=== PATIENT | male | born 1945 | race Caucasian/White ===

== ENCOUNTER → 2017-06-27 16:14 | Outpatient (CLI) | payer MEDICARE, SELFPAY ==
[2017-06-27 17:45] LABS: PSA,Total- Diagnostic 0.16 ng/mL (0.0-4.0)
== END ==
PROVIDERS: Family Provider Family Medicine; PCP Family Medicine; Visit Provider Urology
DX: Z12.5 Encounter for screening for malignant neoplasm of prostate (principal)
CPT/HCPCS: 36415; 84153

== ENCOUNTER → 2017-09-04 16:08 | Outpatient (CLI) | payer MEDICARE, SELFPAY ==
[2017-09-04 18:05] LABS: Absolute Lymphocyte Count 2.01 X10^3/ul (0.83-4.51); Absolute Neutrophil Count 2.7 X10^3/uL (2.0-7.7); Basophil# 0.03 X10^3/uL; Basophil% 0.6 % (0-1); Eosinophil# 0.18 X10^3/uL; Eosinophils% 3.4 % (0-5); Hematocrit 40.1 % (40-54); Hemoglobin 13.4 g/dl (13.0-16.5); Lymphocyte # 2.01 X10^3/ul (4.0); Lymphocyte % 37.6 % (19-41); Mean Corp Hgb Conc 33.4 g/gl (32-36); Mean Corpuscular Volume 89.9 fL (80-94); Mean Platelet Vol. 10.8 fl (6.2-12.0); Monocyte# 0.41 X10^3/uL; Monocyte% 7.7 % (0-10); Neutrophil % 50.3 % (47-70); Platelet Count 124 K/mm3 (150-450); RBC Distribution Width CV 12.7 % (11.6-14.6); RBC Distribution Width SD 41.5 fl (35.1-43.9); Red Blood Count 4.46 M/mm3 (4.6-6.2); White Blood Count 5.4 K/mm3 (4.4-11.0)
[2017-09-04 18:06] LABS: POSITIVE COUNT NO; POSITIVE DIFFERENTIAL NO; POSITIVE MORPHOLOGY NO
[2017-09-04 18:40] LABS: ALB/GLOB Ratio 1.2 RATIO (0.9-2.4); AST(SGOT) 16 U/L (15-37); Alanine Aminotransfer ALT/SGPT 26 U/L (16-61); Albumin, Serum 3.7 g/dL (3.2-5.0); Alkaline Phosphatase 99 U/L (45-117); Anion Gap 8 (5-15); BUN 20 mg/dL (7-18); Calcium,Total 8.4 mg/dL (8.5-10.1); Chloride 108 mmol/L (98-107); Cholesterol 156 mg/dL (200); Creatinine, Serum 1.43 mg/dL (0.70-1.30); EST Glomerular Filtration Rate 52 mL/min (>60); Est Glom Filt Rate - Afr Amer 63 mL/min (>60); Ferritin 558 ng/mL (26-388); Globulin 3.1 g/dL (2.2-4.2); Glucose 107 mg/dL (74-106); High Density Lipoprotein 36 mg/dL; Potassium 3.9 mmol/L (3.5-5.1); Protein, Total 6.8 g/dL (6.4-8.2); Sodium Level 144 mmol/L (136-145); Thyroid Stim Hormone (TSH) 3.43 uIU/mL (0.358-3.74); Triglycerides 340 mg/dL; Very Low Density Lipoprotein 68 mg/dL (5-40)
== END ==
PROVIDERS: Family Provider Family Medicine; PCP Family Medicine; Visit Provider Family Medicine
DX: I10 Essential (primary) hypertension (principal); I42.9 Cardiomyopathy, unspecified; M48.00 Spinal stenosis, site unspecified
CPT/HCPCS: 36415; 80053; 80061; 82728; 84443; 85025

== ENCOUNTER → 2018-03-04 08:11 | Outpatient (CLI) | payer MEDICARE, SELFPAY ==
[2018-03-04 09:47] LABS: AST(SGOT) 11 U/L (15-37); Alanine Aminotransfer ALT/SGPT 25 U/L (16-61); Albumin, Serum 3.6 g/dL (3.2-5.0); Alkaline Phosphatase 85 U/L (45-117); Cholesterol 151 mg/dL (200); Globulin 3.2 g/dL (2.2-4.2); High Density Lipoprotein 40 mg/dL; Protein, Total 6.8 g/dL (6.4-8.2); Triglycerides 209 mg/dL; Very Low Density Lipoprotein 42 mg/dL (5-40)
== END ==
PROVIDERS: Family Provider Family Medicine; PCP Family Medicine; Referring Provider Nurse Practitioner Family; Visit Provider Nurse Practitioner Family
DX: E78.5 Hyperlipidemia, unspecified (principal)
CPT/HCPCS: 36415; 80061; 80076

== ENCOUNTER → 2018-05-31 10:26 | Outpatient (CLI) | payer MEDICARE, SELFPAY ==
[2017-09-04 15:30] VITALS: BMI 29.2
[2018-05-31 11:49] LABS: Hemoglobin A1c 5.8 % (4.2-6.3)
[2018-05-31 11:52] LABS: ALB/GLOB Ratio 1.2 RATIO (0.9-2.4); AST(SGOT) 15 U/L (15-37); Alanine Aminotransfer ALT/SGPT 27 U/L (16-61); Albumin, Serum 3.8 g/dL (3.2-5.0); Alkaline Phosphatase 90 U/L (45-117); Anion Gap 8 (5-15); BUN 26 mg/dL (7-18); BUN/Creat Ratio 15.8 RATIO (10-20); Calcium,Total 9.1 mg/dL (8.5-10.1); Chloride 107 mmol/L (98-107); Creatinine, Serum 1.65 mg/dL (0.70-1.30); EST Glomerular Filtration Rate 44 mL/min (>60); Est Glom Filt Rate - Afr Amer 53 mL/min (>60); Globulin 3.2 g/dL (2.2-4.2); Glucose 97 mg/dL (74-106); Potassium 4.5 mmol/L (3.5-5.1); Sodium Level 143 mmol/L (136-145); T4 Free Direct 1.29 ng/dL (0.76-1.46); Thyroid Stim Hormone (TSH) 3.69 uIU/mL (0.358-3.74)
== END ==
PROVIDERS: Family Provider Family Medicine; PCP Family Medicine; Referring Provider Family Medicine; Visit Provider Family Medicine
DX: E03.9 Hypothyroidism, unspecified (principal); N18.3 Chronic kidney disease, stage 3 (moderate)
CPT/HCPCS: 36415; 80053; 82043; 82570; 83036; 84439; 84443

== ENCOUNTER → 2018-08-20 13:12 | Outpatient (CLI) | payer MEDICARE, SELFPAY ==
[2018-07-28 14:09] VITALS: BMI 28.6
--- NOTE | 2018-08-20 13:15 | RAD_ITS ---
STUDY: X-RAY CHEST REASON FOR EXAM: Male, 73 years old. Shortness of breath. On amiodarone therapy. Cardiomyopathy. TECHNIQUE: PA and lateral views of the chest. COMPARISON: July 19, 2016. FINDINGS: The lungs are clear and expanded. There is no demonstrated pleural abnormality. Normal size heart. Stable left-sided cardiac pacemaker. Normal mediastinum and rell. Normal visualized pulmonary arteries. Normal visualized aortic arch and descending thoracic aorta. Normal visualized thoracic spine. Normal visualized ribs, clavicles, and shoulders. There is no demonstrated abnormality of the visualized soft tissue structures of the upper abdomen. RAD/Chest PA and Lateral IMPRESSION: Stable cardiac pacemaker without acute cardiopulmonary disease or major interval change. Electronically Signed: Nirmal Louis DO at 11:35 EDT Tel [phone], Service support ,
== END ==
PROVIDERS: Family Provider Family Medicine; PCP Family Medicine; Referring Provider Internal Medicine Cardiovascular Disease; Visit Provider Internal Medicine Cardiovascular Disease
DX: R06.02 Shortness of breath (principal); I43 Cardiomyopathy in diseases classified elsewhere
CPT/HCPCS: 71046

== ENCOUNTER → 2018-09-03 | Outpatient (CLI) | payer MEDICARE, SELFPAY ==
[2018-07-28 14:09] VITALS: BMI 28.6
[2018-09-03 09:31] LABS: AST(SGOT) 17 U/L (15-37); Alanine Aminotransfer ALT/SGPT 22 U/L (16-61); Albumin, Serum 3.8 g/dL (3.2-5.0); Alkaline Phosphatase 95 U/L (45-117); Bilirubin, Direct 0.07 mg/dL (0.00-0.30); Cholesterol 159 mg/dL (200); Globulin 3.2 g/dL (2.2-4.2); High Density Lipoprotein 40 mg/dL; Triglycerides 161 mg/dL; Very Low Density Lipoprotein 32 mg/dL (5-40)
== END | disposition home or self-care (01) ==
LOC: LAB 07:58
PROVIDERS: Family Provider Family Medicine; PCP Family Medicine; Referring Provider Nurse Practitioner Family; Visit Provider Nurse Practitioner Family
DX: E78.5 Hyperlipidemia, unspecified (principal)
CPT/HCPCS: 36415; 80061; 80076

== ENCOUNTER → 2019-03-19 | Outpatient (CLI) | payer MEDICARE, SELFPAY ==
[2019-02-02 13:46] VITALS: BMI 27.8
[2019-03-19 09:58] LABS: ALB/GLOB Ratio 1.2 RATIO (0.9-2.4); AST(SGOT) 16 U/L (15-37); Alanine Aminotransfer ALT/SGPT 24 U/L (16-61); Albumin, Serum 3.9 g/dL (3.2-5.0); Alkaline Phosphatase 99 U/L (45-117); Anion Gap 7 (5-15); BUN 18 mg/dL (7-18); Calcium,Total 9.2 mg/dL (8.5-10.1); Chloride 105 mmol/L (98-107); Creatinine, Serum 1.38 mg/dL (0.70-1.30); EST Glomerular Filtration Rate 54 mL/min (>60); Est Glom Filt Rate - Afr Amer 65 mL/min (>60); Globulin 3.3 g/dL (2.2-4.2); Glucose 100 mg/dL (74-106); PSA,Total- Diagnostic 0.08 ng/mL (0.0-4.0); Potassium 3.9 mmol/L (3.5-5.1); Protein, Total 7.2 g/dL (6.4-8.2); Sodium Level 140 mmol/L (136-145)
[2019-03-19 10:12] LABS: AST(SGOT) 16 U/L (15-37); Alanine Aminotransfer ALT/SGPT 23 U/L (16-61); Albumin, Serum 3.9 g/dL (3.2-5.0); Alkaline Phosphatase 100 U/L (45-117); Bilirubin, Direct 0.11 mg/dL (0.00-0.30); Cholesterol 171 mg/dL (200); Globulin 3.4 g/dL (2.2-4.2); High Density Lipoprotein 44 mg/dL; Protein, Total 7.3 g/dL (6.4-8.2); Triglycerides 167 mg/dL; Very Low Density Lipoprotein 33 mg/dL (5-40)
== END | disposition home or self-care (01) ==
LOC: LAB 08:11
PROVIDERS: Nurse Practitioner Family; Family Provider Family Medicine; PCP Family Medicine; Referring Provider Family Medicine; Visit Provider Family Medicine
DX: N40.0 Benign prostatic hyperplasia without lower urinary tract symptoms (principal); N18.2 Chronic kidney disease, stage 2 (mild); E78.00 Pure hypercholesterolemia, unspecified
CPT/HCPCS: 36415; 80053; 80061; 80076; 84153

== ENCOUNTER → 2019-06-09 13:42 | Outpatient (CLI) | payer MEDICARE, SELFPAY ==
[2019-02-02 13:46] VITALS: BMI 27.8
[2019-06-09 15:51] LABS: Microalbumin,Random Urine < 5.0 mg/L (NO RANGE EST.)
== END ==
PROVIDERS: Family Provider Family Medicine; PCP Family Medicine; Referring Provider Family Medicine; Visit Provider Family Medicine
DX: N18.3 Chronic kidney disease, stage 3 (moderate) (principal); F11.20 Opioid dependence, uncomplicated
CPT/HCPCS: 82043; 82570

== ENCOUNTER → 2019-06-10 13:15 | Outpatient (CLI) | payer MEDICARE, SELFPAY ==
[2019-02-02 13:46] VITALS: BMI 27.8
[2019-06-10 15:31] LABS: Hepatitis C Antibody Non-Reactive (Nonreactive)
== END ==
LOC: LAB.FUTURE 13:18 → LAB 13:19
PROVIDERS: Family Provider Family Medicine; PCP Family Medicine; Referring Provider Family Medicine; Visit Provider Family Medicine
DX: Z11.59 Encounter for screening for other viral diseases (principal)
CPT/HCPCS: 36415; 86803

== ENCOUNTER 2020-07-06 10:27 | Inpatient (IN) | payer MEDICARE, SELFPAY ==
[2019-08-03 13:54] VITALS: BMI 28.6
[2020-07-06] VITALS (13 sets, daily range): BP systolic 120–157; BP diastolic 59–94; PULSE 82–106; RESP 15–29; TEMP 36.4–36.9; O2SAT 81–98; BMI 27.5; BMI 26.0; BMI 26.1
--- NOTE | 2020-07-06 10:51 | ED.VIS.GEN ---
History of Present Illness Chief Complaint: General Illness Informant: Patient, Family Narrative: 75-year-old male presenting with shortness of breath. Patient can only narrow down his symptoms to a week or 2 weeks. States he thinks it is closer to 2 weeks. Patient has chills, cough, shortness of breath. It is worsened today. Patient has no known exposure to Covid?19. He has no change in taste or smell, myalgias, fever. Patient is a non-smoker. Patient does not wear home O2. It was reported that just moving the patient to the bed from the EMS cot the patient dropped from 94% down to 81% on room air. Patient denies chest pain. Patient also denies lower extremity edema. Patient has decreased appetite but states he is only had some intermittent nausea. He has not vomited. Patient admits to some diarrhea which appears to be resolving. - Past Medical History (1) Non-rheumatic tricuspid valve insufficiency Status: Chronic (2) Pure hypercholesterolemia Status: Chronic (3) Essential hypertension Status: Chronic (4) Hypothyroidism, iatrogenic Status: Chronic Past Medical History - Allergies and Home Meds Allergies/Adverse Reactions: Allergies Antihistamines - Alkylamine Adverse Reaction (Severe, Verified 07/06/20 10:34) Anxiety Primary Care Physician: Neeraj Dietrich MD [Primary Care Provider] - Prior records reviewed: Yes Past Medical History: - - Reviewed in problem list Surgical History: noncontributory Lives: Spouse/ Significant Other Smoking Status: Never smoker Alcohol: None Drugs: None Review of Systems General: Reports: Chills, Malaise. Denies: Fever, Subjective, Sweats Eyes: Denies: Visual changes - bilaterally, Diplopia ENT: Denies: Rhinorrhea, Sore throat Cardiovascular: Denies: Chest pain, Palpitations Respiratory: Reports: Dyspnea, Cough, Dyspnea on exertion Gastrointestinal: Reports: Nausea, Diarrhea. Denies: Abdominal pain, Vomiting, Constipation Genitourinary: Denies: Dysuria, Hematuria Musculoskeletal: Denies: Myalgias, Arthralgias Skin: Denies: Rash, Abscess Neurological: Denies: Headache, Parasthesia, Numbness Psych: Denies: Depression, Anxiety Physical Exam Vital Signs/Narrative: Vital Signs Temp Pulse Resp BP Pulse Ox 07/06/20 10:40 97.8 F 97 19 H 137/94 H 95 07/06/20 10:28 97.8 F 98 23 H 137/94 H 81 Inital Vital Signs reviewed: Yes General: Well nourished, No Acute Distress Head: Normocephalic, Atraumatic Eyes: Perrl, EOMI, Scleral icterus ENT: No rhinorrhea, Dry mucous membranes Cardiovascular: Regular rate, Regular rhythm Respiratory: No distress, Diminished - Diminished breath sounds in the right lung base.. Negative for: Wheezing Abdomen: Soft, Nontender, Nondistended Extremities: Nontender, No edema Skin: Normal color, No rash. Negative for: Cyanosis, Diaphoresis Neurological: Alert, Oriented x3, Cranial nerves II-XII grossly intact Psychological: Normal affect, Normal Mood Diagnostic/Tx/Re-eval - Medical Decision Making 75-year-old male presenting with epistaxis in the left naris. Patient has anterior bleed which became a little more brisk after blowing his nose. Given that he is on aspirin and Eliquis I will pack his nose with Merocel for anterior bleed. Patient tolerated procedure well. Patient was reevaluated and had no rebleeding. Patient will be given follow-up with ENT. He is given return precautions. Patient stable for discharge at this time. Impression: 1. Epistaxis ED Disposition - Plan for ED Patient: Referrals: Neeraj Dietrich MD [Primary Care Provider] -
[2020-07-06 11:02] LABS: Absolute Lymphocyte Count 1.11 X10^3/uL (0.83-4.51); Absolute Neutrophil Count 10.4 X10^3/uL (2.0-7.7); Basophil# 0.06 X10^3/uL; Basophil% 0.5 % (0-1); Eosinophil# 0.07 X10^3/uL; Eosinophils% 0.5 % (0-5); Lymphocyte # 1.11 X10^3/ul (4.0); Lymphocyte % 8.7 % (19-41); Mean Corpuscular Hgb 29.4 pg (27.0-32.0); Mean Corpuscular Volume 91.9 fL (80-94); Mean Platelet Vol. 10.5 fl (6.2-12.0); Monocyte# 0.86 X10^3/uL; Monocyte% 6.8 % (0-10); NRBC Flagged by Analyzer 0 % (0-5); Neutrophil # 10.36 X10^3/uL (2.7-7.7); Neutrophil % 81.3 % (47-70); Platelet Count 400 K/mm3 (150-450); RBC Distribution Width CV 13.5 % (11.6-14.6); RBC Distribution Width SD 45.5 fl (35.1-43.9); Red Blood Count 5.44 M/mm3 (4.6-6.2); White Blood Count 12.7 K/mm3 (4.4-11.0)
--- NOTE | 2020-07-06 11:10 | RAD_ITS ---
STUDY: X-RAY CHEST REASON FOR EXAM: Male, 75 years old. Cough, sob, x 2 weeks, weakness TECHNIQUE: Single AP portable view of the chest. COMPARISON: Comparison is made with prior study dated 08/20/2018. FINDINGS: EKG electrodes are seen. Patchy infiltrates are seen in the right upper and right lower lobes in a preferential peripheral distribution. Focal infiltrate is also seen in the left lower lobe. This may represent pneumonitis secondary to Covid.There is no demonstrated pleural abnormality. Normal size heart. A left-sided dual-chamber pacemaker is seen. Normal mediastinum and rell. Normal visualized pulmonary arteries. Normal visualized aortic arch and descending thoracic aorta. Normal visualized thoracic spine. Normal visualized ribs, clavicles, and shoulders. There is no demonstrated abnormality of the visualized soft tissue structures of the upper abdomen. RAD/Chest 1 View (Portable) IMPRESSION: Bilateral pulmonary infiltrates in the preferential peripheral distribution as described. Pneumonitis secondary to Covid should be ruled out. Electronically Signed: Dereje Diaz MD at 11:22 EST , Service support ,
[2020-07-06 11:15] LABS: Lactic Acid 1.9 mmol/L (0.4-1.9)
[2020-07-06 11:18] LABS: D-Dimer Quantitative (DVT/PE) 8.89 FEU/ug/m (0.27-0.49)
--- NOTE | 2020-07-06 11:19 | CT_ITS ---
STUDY: CTA CHEST REASON FOR EXAM: Male, 75 years old. HYPOXIA X 2 WEEKS, ELEVATED D-DIMER RADIATION DOSAGE (If Supplied By Facility): CTDIvol = ( 9.99 ) mGy, DLP = ( 391.20 ) mGycm TECHNIQUE: The examination was performed with the intravenous administration of IV 75mL Isovue-370. Post-processing of the angiographic images was performed, with multiplanar reformation and 3D reconstruction. Individualized dose optimization techniques were used for this CT. COMPARISON: Comparison is made with prior chest radiograph done earlier in the day. FINDINGS: Normal enhancement of the main pulmonary artery and right and left pulmonary arteries. Normal enhancement of the bilateral peripheral pulmonary arteries. There is no demonstrated pulmonary embolism. There is atherosclerotic calcification of the aortic arch with tortuosity. There is no demonstrated aortic dissection. There are dual chamber pacemaker electrode leads in satisfactory position. Normal mediastinum. Normal hilar regions. Normal visualized trachea and bronchi. The lungs are well expanded. There is evidence of a multiple areas of groundglass appearance superimposed on chronic scarring worse in the right upper lobe and right lower lobe. Focal areas of groundglass appearance also seen at the left lung base and lingular segment of the left upper lobe. Normal pleura. Normal chest wall structures. There are degenerative changes of thoracic spine. Small gallstones. CT/CTA Chest W/WO Contrast IMPRESSION: Multiple areas of groundglass appearance in the right upper and right lower lobes as well as in the lingular segment of left upper lobe and left lower lobe. This is suggestive of Covid pneumonitis. Chronic interstitial fibrosis with subpleural blebs. Electronically Signed: Dereje Diaz MD at 12:25 EST , Service support ,
[2020-07-06 11:20] LABS: ALB/GLOB Ratio 0.6 RATIO (0.9-2.4); AST(SGOT) 365 U/L (15-37); Alanine Aminotransfer ALT/SGPT 357 U/L (16-61); Alkaline Phosphatase 141 U/L (45-117); Anion Gap 9 (5-15); BNP,B-Type NATRIURETIC PEPTIDE 15.3 pg/mL (0-100); BUN 39 mg/dL (7-18); BUN/Creat Ratio 24.5 RATIO (10-20); Calcium,Total 9.5 mg/dL (8.5-10.1); Chloride 108 mmol/L (98-107); Creatinine, Serum 1.59 mg/dL (0.70-1.30); EST Glomerular Filtration Rate 46 mL/min (>60); Est Glom Filt Rate - Afr Amer 55 mL/min (>60); Estimated Creatinine Clearance 36.78 ml/min; Globulin 5.4 g/dL (2.2-4.2); Glucose 127 mg/dL (74-106); Potassium 4.2 mmol/L (3.5-5.1); Protein, Total 8.4 g/dL (6.4-8.2); Sodium Level 142 mmol/L (136-145)
--- NOTE | 2020-07-06 11:35 | PCM.HP.STD ---
Problem List (1) Acute respiratory failure with hypoxia Status: Acute (2) Pneumonia due to COVID-19 virus Status: Acute (3) Elevated LFTs Status: Acute (4) Pure hypercholesterolemia Status: Chronic (5) Essential hypertension Status: Chronic (6) Hypothyroidism, iatrogenic Status: Chronic (7) Nicotine abuse Status: Chronic (8) Non-ischemic cardiomyopathy Status: Chronic (9) CKD (chronic kidney disease), stage III Status: Chronic Qualifiers: Chronic kidney disease stage 3 subtype: unspecified whether 3a or 3b Qualified Code(s): N18.30 - Chronic kidney disease, stage 3 unspecified History of Present Illness Date of Admission: 07/06/20 Chief Complaint: Nausea, cough, dyspnea, diarrhea, headaches AND fever only upon presentation with EMS. The patient is a 75 y/o M w/ PMHx: HTN, HLD, Hypothyroidism, Valvular Heart Disease, Nonischemic Cardiomyopathy s/p AICD/pacemaker, Former Tobacco use, Anxiety, BPH, CKD stage III, GERD, ? VT/PAF (on amiodarone), Chronic pain syndrome (on PRN morphine) who presents to the [facility] ED on 07/06/20 with history of ~ 5 days of initially nausea, poor oral intake, fatigue, malaise, diarrhea, headaches primarily frontal/throbbing with no cough and dyspnea worsening over the last ~ 24 hours with fever per EMS upon their evaluation prompting ED presentation with noted initial evaluation with 81% on RA. present also and notes she has felt well although coughing through evaluation but states this is chronic. She does all their shopping and errands and reports irritability with masks. Work-up in the ED included T 97.8, heart rate 98, BP 137/94, respiratory rate 23, evidence tachypnea with accessory muscle usage and dyspnea evident, 81% on room air initially transitioned to nonrebreather at 15 L improving to 95%, CBC with WBC 12.7, hemoglobin 16, platelet 400 with left shift, D-dimer 8.89, CMP with chloride 108, BUN/: 39/1.59, glucose 127, lactic acid 1.9, total bilirubin 0.80, AST/ALT 365/367, alk phos 141, troponin less than 0.015, BNP 15.3, procalcitonin 0.18, Covid PCR pending, blood culture x2 pending per ED, rapid Covid negative, chest x-ray with bilateral pulmonary infiltrates in the preferential peripheral distribution significant for likely Covid, CTPA obtained and read pending upon evaluation. In the ED patient ministered normal saline and Decadron 6 mg IV x1. Past Medical History Past Medical History (Chronic Problems): Chronic Problems (Last Reviewed 08/03/19 @ 13:56 by Chanda Blair) Non-rheumatic tricuspid valve insufficiency (Chronic) Pure hypercholesterolemia (Chronic) Essential hypertension (Chronic) Intermittent claudication (Chronic) Hypothyroidism, iatrogenic (Chronic) Nonrheumatic mitral valve regurgitation (Chronic) Abnormal echocardiogram (Chronic) Nicotine abuse (Chronic) Cardiomyopathy in other diseases classified elsewhere (Chronic) Left bundle branch block (Chronic) Other [employer] (current) drug therapy (Chronic) Antihyperlipidemic Bilateral carotid bruits (Chronic) Non-ischemic cardiomyopathy (Chronic) Presence of biventricular implantable cardioverter-defibrillator (ICD) (Chronic) 07/16/03, Implantation of cardiac Re-Syncronization Defib system; ICD replacement 07/05; CKD (chronic kidney disease), stage III (Chronic) Acute renal failure syndrome (Chronic) Medical History: Medical History (Last Reviewed 08/03/19 @ 13:56 by Chanda Blair) Non-rheumatic tricuspid valve insufficiency (Chronic) I36.1 Pure hypercholesterolemia (Chronic) E78.00 Essential hypertension (Chronic) I10 Intermittent claudication (Chronic) I73.9 Hypothyroidism, iatrogenic (Chronic) E03.2 Nonrheumatic mitral valve regurgitation (Chronic) I34.0 Cardiomyopathy in other diseases classified elsewhere (Chronic) I43 Left bundle branch block (Chronic) I44.7 Bilateral carotid bruits (Chronic) R09.89 Non-ischemic cardiomyopathy (Chronic) I42.8 Chest pain R07.9 Dyspnea R06.00 Fatigue R53.83 HLD (hyperlipidemia) (Inactive) E78.5 HTN (hypertension) (Inactive) I10 Allergies Antihistamines - Alkylamine Adverse Reaction (Severe, Verified 07/06/20 10:34) Anxiety Home Medications: Ambulatory Orders Medication Instructions Recorded alprazolam 0.5 mg tablet 0.5 mg PO QHS PRN tab 09/03/17 aspirin 81 mg tablet,delayed 81 mg PO QDAY tab 09/03/17 release finasteride 5 mg tablet 5 mg PO QDAY 09/03/17 pantoprazole 40 mg tablet,delayed 40 mg PO QDAY 09/03/17 release morphine 30 mg tablet,extended 30 mg PO Q12H PRN 07/28/18 release melatonin 5 mg tablet 20 mg PO HS tab 08/03/19 pravastatin 20 mg tablet 20 mg PO QHS #90 tab 08/19/19 levothyroxine 50 mcg tablet 50 mcg PO QDAY #90 tab 10/21/19 amlodipine 2.5 mg tablet 2.5 mg PO QDAY #90 tab 12/23/19 carvedilol 3.125 mg tablet 3.125 mg PO BID #180 tab 01/26/20 amiodarone 200 mg tablet 100 mg PO QDAY #45 tab 03/24/20 lisinopril 20 mg tablet 20 mg PO BID #180 tab 05/03/20 Ascorbic Acid [Vitamin C] 500 mg PO DAILY 07/06/20 Cyanocobalamin (Vitamin B-12) 500 mcg PO DAILY 07/06/20 [Vitamin B-12] Ferrous Sulfate [Iron] 325 mg PO DAILY 07/06/20 Magnesium Oxide [Magnesium] 400 mg PO QHS 07/06/20 Tamsulosin HCl 0.4 mg PO DAILY 07/06/20 Surgical History: Surgical History (Last Reviewed 08/03/19 @ 13:56 by Chanda Blair) Presence of biventricular implantable cardioverter-defibrillator (ICD) (Chronic) Z95.810 07/16/03, Implantation of cardiac Re-Syncronization Defib system; ICD replacement 07/05; Surgical History: - - AICD/pacemaker placement. Psychiatric History: Anxiety Lives: Spouse/ Significant Other Smoking Status: Former smoker - Patient quit cigarette tobacco usage approximately 15 years prior with prior to this 1 pack/day cigarette tobacco use since he was a teenager. Tobacco Use: Non-smoker - since he was a teenager. Alcohol: None Drugs: None - *Family History Maternal Family History: Family History (Last Reviewed 08/03/19 @ 13:56 by Chanda Blair) Father CAD (coronary artery disease) Mother CAD (coronary artery disease) Hypertension History Items: High Cholesterol, Heart Disease, Hypertension Paternal Family History: Family History (Last Reviewed 08/03/19 @ 13:56 by Chanda Blair) Father CAD (coronary artery disease) Mother CAD (coronary artery disease) Hypertension History Items: High Cholesterol, Heart Disease, Hypertension Review of Systems Constitutional: Reports: Anorexia, Fever, Malaise, Weakness, Fatigue. Denies: Chills, Weight Change HEENT: Reports: Head Aches. Denies: Sinus Congestion, Sinus Drainage Cardiovascular: Denies: Chest Pain, Palpitations Respiratory: Reports: Cough, Shortness of Breath, Shortness of breath at rest, Shortness of breath upon exertion. Denies: Sputum production, Wheezing Gastrointestinal: Reports: Diarrhea, Nausea. Denies: Abdominal Pain, Vomiting Genitourinary: Denies: Dysuria Musculoskeletal: Reports: Back Pain, Joint Pain. Denies: Joint Tenderness Skin: Denies: Rash, Wounds Neurological: Denies: Numbness, Tingling, Focal weakness Psychiatric: Reports: Anxiety. Denies: Depression, Homicidal Ideations, Suicidal Ideations Hematologic/ Lymphatic: Denies: Easy Bruising, Easy Bleeding VTE Information - Inpt Only VTE Present on Admission: No VTE Mechan Device Prophylaxis: SCD's VTE Pharm Prophylaxis ordered?: Yes Subjective: Patient seated upright in the ED bed, fatigued appearing, on a nonrebreather, still some increased work of breathing accessory muscle usage but improving since initial ED presentation. Objective: Physical Examination: General: awake, alert, oriented x 3 and cooperative, seated upright in the ED bed, fatigued, ill-appearing, still some increased work of breathing and accessory muscle usage, on nonrebreather, improving since initial ED presentation. Skin: normal color, turgor, no icterus, cyanosis. HEENT: AT/NC, EOMI, PERRLA, dry MM, no carotid bruits or JVD noted. Lungs: Diminished breath throughout, greater bases, increased work breathing accessory muscle usage evident, on a nonrebreather, improving since initial ED presentation however, no rales, ronchi or wheezing. Heart: Mildly tachycardic with regular rhythm; no gallop, rub audible. Abdomen: soft, NTTP, ND, hyperactive BS, no HSM. Extremities: no cyanosis, clubbing, or edema. Neurological: patient awake, alert, oriented as noted; cognitive function intact; pupils equally reactive to light and accomodation; cranial nerves II-XII grossly normal, moving all 4 extremities, no focal deficits, strength severely globally decreased secondary to acute presentation. Psychiatric: affect appears fatigued, ill-appearing, no acute evidence of depressive or anxiety feelings. - Physical Exam Vitals/I&O's: Vital Signs Temp Pulse Resp BP Pulse Ox 97.8 F 82 17 131/71 H 97 07/06/20 12:00 07/06/20 12:00 07/06/20 12:00 07/06/20 12:00 07/06/20 12:00 Oxygen Flow Rate (L/min) 7 Oxygen Delivery Method Nasal Cannula Weight: 170 lb 6.677 oz Body Mass Index (BMI) 27.5 Microbiology Past 72 Hours 07/06/20 10:40 Mucosa - Nose SARS-CoV-2 Antigen (Rapid) - Final Laboratory Results 07/06/20 10:40: WBC 12.7 H, RBC 5.44, Hgb 16.0, Hct 50.0, MCV 91.9, MCH 29.4, MCHC 32.0, RDW Std Deviation 45.5 H, RDW Coeff of Khris 13.5, Plt Count 400, MPV 10.5, Immature Gran % (Auto) 2.200 H, Neut % (Auto) 81.3 H, Lymph % (Auto) 8.7 L, [place] % (Auto) 6.8, Eos % (Auto) 0.5, Baso % (Auto) 0.5, Absolute Neuts (auto) 10.4 H, Absolute Lymphs (auto) 1.11, Nucleated RBC % 0 07/06/20 10:40: D-Dimer Quant (PE/DVT) 8.89 H* 07/06/20 10:40: Sodium 142, Potassium 4.2, Chloride 108 H, Carbon Dioxide 25.0, Anion Gap 9, BUN 39 H, Creatinine 1.59 H, Estim Creat Clear Calc 36.78, Est GFR (MDRD) Af Amer 55 L, Est GFR (MDRD) Non-Af 46 L, BUN/Creatinine Ratio 24.5 H, Glucose 127 H, Calcium 9.5, Total Bilirubin 0.80, AST 365 H, ALT 357 H, Alkaline Phosphatase 141 H, Troponin I < 0.015, Total Protein 8.4 H, Albumin 3.0 L, Globulin 5.4 H, Albumin/Globulin Ratio 0.6 L 07/06/20 10:40: Lactic Acid 1.9 07/06/20 10:40: B-Natriuretic Peptide 15.3 02/10/21 10:40: Procalcitonin 0.18 H 07/06/20 11:25: COVID-19 (ISABELLA) Pending Assessment/Plan All Active Problems (Last Reviewed 08/03/19 @ 13:56 by Chanda Blair) Pneumonia due to COVID-19 virus (Acute) Acute respiratory failure with hypoxia (Acute) Elevated LFTs (Acute) The patient is a 75 y/o M w/ PMHx: Chronic anemia, HTN, HLD, Hypothyroidism, Valvular Heart Disease, Nonischemic Cardiomyopathy s/p AICD/pacemaker, Former Tobacco use, Anxiety, BPH, CKD stage III, GERD, ? VT/PAF, Chronic pain syndrome who presents to the [facility] ED on 07/06/20 with history of ~ 5 days of initially nausea, poor oral intake, fatigue, malaise, diarrhea, headaches primarily frontal/throbbing with no cough and dyspnea worsening over the last ~ 24 hours with fever per EMS upon their evaluation prompting ED presentation with noted initial evaluation with 81% on RA. 1. Acute Hypoxic Respiratory Failure secondary to Acute Bilateral Pneumonia secondary to Acute Viral Syndrome, COVID-19 complicated by underlying chronic interstitial fibrotic change and suspected underlying COPD given prolonged tobacco use history: Will admit to the COVID unit as telemetry status, will maintain on oxygen with wean as tolerated to room air but if worsens may necessitate BIPAP versus airvo, PRN albuterol, HOB, IS parameters w/ pending sputum cultures, respiratory viral panel and urine antigens, CTPA as noted given notably elevated d-dimer with multiple areas of groundglass appearance in the right upper and right lower lobe as well as lingular segment of left upper lobe and left lower lobe suggestive of Covid pneumonitis with chronic interstitial fibrotic and subpleural blebs evident, pending CRP, CPK, Ferritin, LDH, continue supportive care including q 2 hour turning including prone given no prone bed availability and judicious hydration, closely monitor for worsening status for ARDS and multiorgan failure, will consult Infectious disease, will initiate and continue IV decadron x 10 doses, given presentation will also initiate IV remdesivir but defer to discretion of Infectious disease and very closely monitor CMP. 2. Elevated LFTs likely secondary to #1: Admission CMP with bilirubin 0.80, AST/ALT 365/357, alk phos 141, will continue closely monitor special planned usage of remdesivir. 3. Nonischemic cardiomyopathy: Status post AICD/pacemaker, continue patient aspirin, Coreg, lisinopril, statin therapy, not on any diuretic, will closely monitor given acute presentation as noted. 10/11/2017 echocardiogram with normal LV size, mild concentric LVH, EF 60%, RV normal size, RV systolic function normal, moderately dilated LA, known calcified echodensity in the left atrium. 4. Questionable VT/cardiac arrhythmia/PAF: Patient currently on low-dose daily amiodarone, unclear if prior cardiac arrhythmia, will continue to closely monitor, will maintain also on Coreg, not chronically anticoagulated of note. 5. Hypertension: Continue home regimen including Coreg, lisinopril with hold parameters, PRN hydralazine. 6. Hyperlipidemia: Continue home statin regimen. 7. Chronic anemia, iron deficiency: Admission hemoglobin 16, will continue patient iron supplementation, continue to trend CBC. 8. Chronic Kidney Disease Stage III: Admission BUN/Cr 39/1.59, baseline renal function 1.3-1.7, repeat BMP in AM. 9. Hypothyroidism: Continue home synthroid regimen. 10. GERD: Continue patient PPI. 11. BPH: We will continue patient home finasteride and Flomax regimen. 12. DVT prophylaxis: SCDs, Lovenox. 13. CODE status: Patient does not have formal HCPOA or living will set-up but is present and they both note she would be his decision maker. Discussed CODE status at length including difference between FULL code, DNR-CCA and DNR-CC status. Following discussions about the differences in these status, requested Full Code status. Advanced Care Planning Face to Face Time: 16 minutes. Inpatient E&M: 31901 Init Hosp L3 Procedures: 30507 Advncd Care Plan 30 Min
[2020-07-06 11:38] LABS: Procalcitonin 0.18 ng/mL (0.00-0.09)
[2020-07-06] MEDS: dexAMETHasone 10 MG/ML Vial 6 MG IV (12:21)
--- NOTE | 2020-07-06 12:29 | EKG12_ITS ---
Test Reason : GEN ILLNESS Blood Pressure : / mmHG Vent. Rate : 080 BPM Atrial Rate : 080 BPM P-R Int : 198 ms QRS Dur : 130 ms QT Int : 462 ms P-R-T Axes : 034 -48 107 degrees QTc Int : 532 ms Atrial-sensed ventricular-paced rhythm Biventricular pacemaker detected Abnormal ECG Confirmed by CYN JOHNS, KISHOR ([id number]), editorial director CARMELINA WALDRON ([id number]) on 07/08/2020 8:43:01 AM Referred By: MIKEY Confirmed By:RAHUL ADDISON MD
[2020-07-06 14:19] LABS: Ferritin 5187 ng/mL (26-388); LDH 999 U/L (87-241); Magnesium 2.8 mg/dL (1.6-2.6)
[2020-07-06] MEDS: 0.9% Saline Lock 10 ML Syringe IV (14:27)
--- NOTE | 2020-07-06 15:51 | CON.PCM_ITS ---
Problem List (1) Pneumonia due to COVID-19 virus Status: Acute Reason for Consult: covid Consulted by: Dr. Diop History of Present Illness: The patient is a 75 year old M presented with about 5 days of not feeling well, cough, dyspnea, chills, headache, n/v/d, and loss of appetite. No change in taste or smell. has been feeling fine. Came to ED, sat was 81% on RA, admitted, covid was (+). Full ROS performed and neg except as noted above. - Medical History Past Medical History (Chronic Problems): Chronic Problems (Last Reviewed 08/03/19 @ 13:56 by Chanda Blair) Non-rheumatic tricuspid valve insufficiency (Chronic) Pure hypercholesterolemia (Chronic) Essential hypertension (Chronic) Intermittent claudication (Chronic) Hypothyroidism, iatrogenic (Chronic) Nonrheumatic mitral valve regurgitation (Chronic) Abnormal echocardiogram (Chronic) Nicotine abuse (Chronic) Cardiomyopathy in other diseases classified elsewhere (Chronic) Left bundle branch block (Chronic) Other alf (current) drug therapy (Chronic) Antihyperlipidemic Bilateral carotid bruits (Chronic) Non-ischemic cardiomyopathy (Chronic) Presence of biventricular implantable cardioverter-defibrillator (ICD) (Chronic) 07/16/03, Implantation of cardiac Re-Syncronization Defib system; ICD replacement 07/05; CKD (chronic kidney disease), stage III (Chronic) Acute renal failure syndrome (Chronic) Allergies/Adverse Reactions: Allergies Antihistamines - Alkylamine Adverse Reaction (Severe, Verified 07/06/20 10:34) Anxiety Home Medications: Ambulatory Orders Medication Instructions Recorded alprazolam 0.5 mg tablet 0.5 mg PO QHS PRN tab 09/03/17 aspirin 81 mg tablet,delayed 81 mg PO QDAY tab 09/03/17 release finasteride 5 mg tablet 5 mg PO QDAY 09/03/17 pantoprazole 40 mg tablet,delayed 40 mg PO QDAY 09/03/17 release morphine 30 mg tablet,extended 30 mg PO Q12H PRN 07/28/18 release melatonin 5 mg tablet 20 mg PO HS tab 08/03/19 pravastatin 20 mg tablet 20 mg PO QHS #90 tab 08/19/19 levothyroxine 50 mcg tablet 50 mcg PO QDAY #90 tab 10/21/19 amlodipine 2.5 mg tablet 2.5 mg PO QDAY #90 tab 12/23/19 carvedilol 3.125 mg tablet 3.125 mg PO BID #180 tab 01/26/20 amiodarone 200 mg tablet 100 mg PO QDAY #45 tab 03/24/20 lisinopril 20 mg tablet 20 mg PO BID #180 tab 05/03/20 Ascorbic Acid [Vitamin C] 500 mg PO DAILY 07/06/20 Cyanocobalamin (Vitamin B-12) 500 mcg PO DAILY 07/06/20 [Vitamin B-12] Ferrous Sulfate [Iron] 325 mg PO DAILY 07/06/20 Magnesium Oxide [Magnesium] 400 mg PO QHS 07/06/20 Tamsulosin HCl 0.4 mg PO DAILY 07/06/20 - Social History SMOKING STATUS:: Former smoker Vital Signs Temp Pulse Resp BP Pulse Ox 98.2 F 85 22 H 157/74 H 92 07/06/20 13:58 07/06/20 13:58 07/06/20 13:58 07/06/20 13:58 07/06/20 13:58 Oxygen Flow Rate (L/min) 7 Oxygen Delivery Method Nasal Cannula Weight: 73.3 kg Body Mass Index (BMI) 26.0 Microbiology Past 72 Hours 07/06/20 10:40 SARS-CoV-2 Antigen (Rapid) - Final Mucosa - Nose Laboratory Tests Past 24 Hrs 07/06/20 07/06/20 07/06/20 10:40 10:40 10:40 WBC 12.7 H RBC 5.44 Hgb 16.0 Hct 50.0 MCV 91.9 MCH 29.4 MCHC 32.0 RDW Std Deviation 45.5 H RDW Coeff of Khris 13.5 Plt Count 400 MPV 10.5 Immature Gran % (Auto) 2.200 H Neut % (Auto) 81.3 H Lymph % (Auto) 8.7 L [place] % (Auto) 6.8 Eos % (Auto) 0.5 Baso % (Auto) 0.5 Absolute Neuts (auto) 10.4 H Absolute Lymphs (auto) 1.11 Nucleated RBC % 0 D-Dimer Quant (PE/DVT) 8.89 H* Sodium 142 Potassium 4.2 Chloride 108 H Carbon Dioxide 25.0 Anion Gap 9 BUN 39 H Creatinine 1.59 H Estim Creat Clear Calc 36.78 Est GFR (MDRD) Af Amer 55 L Est GFR (MDRD) Non-Af 46 L BUN/Creatinine Ratio 24.5 H Glucose 127 H Lactic Acid Calcium 9.5 Magnesium Ferritin Total Bilirubin 0.80 AST 365 H ALT 357 H Alkaline Phosphatase 141 H Lactate Dehydrogenase Troponin I < 0.015 C-React Prot Ext Range B-Natriuretic Peptide Total Protein 8.4 H Albumin 3.0 L Globulin 5.4 H Albumin/Globulin Ratio 0.6 L Procalcitonin COVID-19 (ISABELLA) 07/06/20 07/06/20 07/06/20 10:40 10:40 10:40 WBC RBC Hgb Hct MCV MCH MCHC RDW Std Deviation RDW Coeff of Khris Plt Count MPV Immature Gran % (Auto) Neut % (Auto) Lymph % (Auto) [place] % (Auto) Eos % (Auto) Baso % (Auto) Absolute Neuts (auto) Absolute Lymphs (auto) Nucleated RBC % D-Dimer Quant (PE/DVT) Sodium Potassium Chloride Carbon Dioxide Anion Gap BUN Creatinine Estim Creat Clear Calc Est GFR (MDRD) Af Amer Est GFR (MDRD) Non-Af BUN/Creatinine Ratio Glucose Lactic Acid 1.9 Calcium Magnesium Ferritin Total Bilirubin AST ALT Alkaline Phosphatase Lactate Dehydrogenase Troponin I C-React Prot Ext Range B-Natriuretic Peptide 15.3 Total Protein Albumin Globulin Albumin/Globulin Ratio Procalcitonin 0.18 H COVID-19 (ISABELLA) 07/06/20 07/06/20 10:40 11:25 WBC RBC Hgb Hct MCV MCH MCHC RDW Std Deviation RDW Coeff of Khris Plt Count MPV Immature Gran % (Auto) Neut % (Auto) Lymph % (Auto) [place] % (Auto) Eos % (Auto) Baso % (Auto) Absolute Neuts (auto) Absolute Lymphs (auto) Nucleated RBC % D-Dimer Quant (PE/DVT) Sodium Potassium Chloride Carbon Dioxide Anion Gap BUN Creatinine Estim Creat Clear Calc Est GFR (MDRD) Af Amer Est GFR (MDRD) Non-Af BUN/Creatinine Ratio Glucose Lactic Acid Calcium Magnesium 2.8 H Ferritin 5187 H Total Bilirubin AST ALT Alkaline Phosphatase Lactate Dehydrogenase 999 H Troponin I C-React Prot Ext Range 175.00 H B-Natriuretic Peptide Total Protein Albumin Globulin Albumin/Globulin Ratio Procalcitonin COVID-19 (ISABELLA) Detected - Other Studies Radiology: [] reviewed Other Studies: [] Route of nutrition/ use of supplements: [] Nutritional Intake: [] IV Site: [] Maria Catheter: [] - Physical Exam General: Alert, Cooperative, No apparent distress HEENT: Atraumatic, PERRLA, EOMI Neck: Supple, No Nodes Lungs: Diminished Cardiovascular: Regular rate, Regular Rhythm Abdomen: Soft, Non Tender, Non-Distended Extremities: No edema Skin: No rashes IV Site: Peripheral, without redness Musculoskeletal: No Tenderness to Palpation of Joints or Extremities Neurological: Cranial nerves II-XII grossly intact - Assessment/Plan Antibiotics: [] Assessment/Plan: [] Active and Suspected Problems (Last Reviewed 08/03/19 @ 13:56 by Chanda Blair) Pneumonia due to COVID-19 virus (Acute) Acute respiratory failure with hypoxia (Acute) Elevated LFTs (Acute) covid with hypoxia and transaminitis - sx started around 07/01. Recommended quarantine and be tested. Recommend 10 days of po dex and starting remdesivir, will monitor ALT. D-dimer was 8.9, CT neg for PE, on lovenox 30mg bid. Will follow, thank you, d/w Dr. Diop.
--- NOTE | 2020-07-06 18:20 | NURSING ---
late entry: 1600- called Kristie for an update on pt. When this nurse was in the room Dr. Lloyd came in to see pt.. Dr. Lloyd suggested that pts should be tested for COVID-19 d/t pt being positive and that she should quarantine. When updated with this information she states that she knew he was positive and that she just spoke with her PCP and since the pts symptoms started 14 days ago that she did not need to get tested or quarantine. Kristie states that she wore a mask and stayed in separate rooms from the pt when he started to get sick.
[2020-07-06] MEDS: MELATONIN 10 MG TABLET 20 MG PO (20:12)
[2020-07-06] MEDS: Lisinopril 20 MG Tablet PO (20:12)
[2020-07-06] MEDS: Pravastatin 20 MG Tablet PO (20:13)
[2020-07-06] MEDS: oxyCODONE 5 MG Tablet PO (20:13)
[2020-07-06] MEDS: Magnesium Chloride 64 MG Delay Rel.Tablet 128 MG PO (20:13)
[2020-07-06] MEDS: Carvedilol 3.125 MG TABLET PO (20:13)
[2020-07-06] MEDS: Enoxaparin 30 MG/0.3 ML Syringe SC (20:14)
[2020-07-06] MEDS: ALPRAZolam 0.5 MG Tablet PO (20:14)
[2020-07-07] VITALS (12 sets, daily range): BP systolic 123–154; BP diastolic 69–74; PULSE 71–94; RESP 18–24; TEMP 36.4–36.6; O2SAT 91–97
--- NOTE | 2020-07-07 05:43 | CON.PCM_ITS ---
Reason for Consult Date of Consultation: 07/07/20 Reason for Consultation: Acute hypoxemic respiratory failure secondary to COVID- 19 pneumonia History of Present Illness: The patient is a 75-year-old male, with a history as outlined below, who presented to the emergency department on July 06 with complaints of shortness of breath, cough and chills. The patient's symptoms have been present for approximately 5 days prior to presenting to the hospital. 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 The patient denies any prior known lung history. He is not on supplemental oxygen at his baseline. He denies a history of COPD. However, the patient is a prior smoker, having quit completely 15 years ago. On presentation to the emergency department, the patient was noted to be afebrile and hemodynamically stable. He was initially documented to be saturating 81% on room air. Laboratory evaluation revealed a white blood cell count of 13,000. D-dimer was elevated to 8.89. Chemistry profile was notable for a creatinine of 1.59. Lactate was within normal limits. AST and ALT were increased to 365 and 357, respectively. Troponin was negative. Procalcitonin was noted to be 0.18. Coronavirus PCR was positive. CTA chest showed no evidence for pulmonary embolism. However, there was evidence of bilateral multifocal groundglass opacities bilaterally on top of what is likely chronic interstitial lung disease. The patient received supplemental IV fluid hydration and was started on remdesivir and Decadron. He was subsequently admitted to the coronavirus cohort unit for further management. Past Medical History Past Medical History (Chronic Problems): Chronic Problems (Last Reviewed 08/03/19 @ 13:56 by Chanda Blair) Non-rheumatic tricuspid valve insufficiency (Chronic) Pure hypercholesterolemia (Chronic) Essential hypertension (Chronic) Intermittent claudication (Chronic) Hypothyroidism, iatrogenic (Chronic) Nonrheumatic mitral valve regurgitation (Chronic) Abnormal echocardiogram (Chronic) Nicotine abuse (Chronic) Cardiomyopathy in other diseases classified elsewhere (Chronic) Left bundle branch block (Chronic) Other correction (current) drug therapy (Chronic) Antihyperlipidemic Bilateral carotid bruits (Chronic) Non-ischemic cardiomyopathy (Chronic) Presence of biventricular implantable cardioverter-defibrillator (ICD) (Chronic) 07/16/03, Implantation of cardiac Re-Syncronization Defib system; ICD replacement 07/05; CKD (chronic kidney disease), stage III (Chronic) Acute renal failure syndrome (Chronic) Medical History: Medical History (Last Reviewed 08/03/19 @ 13:56 by Chanda Blair) Non-rheumatic tricuspid valve insufficiency (Chronic) I36.1 Pure hypercholesterolemia (Chronic) E78.00 Essential hypertension (Chronic) I10 Intermittent claudication (Chronic) I73.9 Hypothyroidism, iatrogenic (Chronic) E03.2 Nonrheumatic mitral valve regurgitation (Chronic) I34.0 Cardiomyopathy in other diseases classified elsewhere (Chronic) I43 Left bundle branch block (Chronic) I44.7 Bilateral carotid bruits (Chronic) R09.89 Non-ischemic cardiomyopathy (Chronic) I42.8 Chest pain R07.9 Dyspnea R06.00 Fatigue R53.83 HLD (hyperlipidemia) (Inactive) E78.5 HTN (hypertension) (Inactive) I10 Allergies Antihistamines - Alkylamine Adverse Reaction (Severe, Verified 07/06/20 10:34) Anxiety Home Medications: Ambulatory Orders Medication Instructions Recorded alprazolam 0.5 mg tablet 0.5 mg PO QHS PRN tab 09/03/17 aspirin 81 mg tablet,delayed 81 mg PO QDAY tab 09/03/17 release finasteride 5 mg tablet 5 mg PO QDAY 09/03/17 pantoprazole 40 mg tablet,delayed 40 mg PO QDAY 09/03/17 release morphine 30 mg tablet,extended 30 mg PO Q12H PRN 07/28/18 release melatonin 5 mg tablet 20 mg PO HS tab 08/03/19 pravastatin 20 mg tablet 20 mg PO QHS #90 tab 08/19/19 levothyroxine 50 mcg tablet 50 mcg PO QDAY #90 tab 10/21/19 amlodipine 2.5 mg tablet 2.5 mg PO QDAY #90 tab 12/23/19 carvedilol 3.125 mg tablet 3.125 mg PO BID #180 tab 01/26/20 amiodarone 200 mg tablet 100 mg PO QDAY #45 tab 03/24/20 lisinopril 20 mg tablet 20 mg PO BID #180 tab 05/03/20 Ascorbic Acid [Vitamin C] 500 mg PO DAILY 07/06/20 Cyanocobalamin (Vitamin B-12) 500 mcg PO DAILY 07/06/20 [Vitamin B-12] Ferrous Sulfate [Iron] 325 mg PO DAILY 07/06/20 Magnesium Oxide [Magnesium] 400 mg PO QHS 07/06/20 Tamsulosin HCl 0.4 mg PO DAILY 07/06/20 Surgical History: Surgical History (Last Reviewed 08/03/19 @ 13:56 by Chanda Blair) Presence of biventricular implantable cardioverter-defibrillator (ICD) (Chronic) Z95.810 07/16/03, Implantation of cardiac Re-Syncronization Defib system; ICD replacement 07/05; Surgical History: - - AICD/pacemaker placement. Psychiatric History: Anxiety Lives: Spouse/ Significant Other Smoking Status: Former smoker Tobacco Use: Non-smoker Alcohol: None Drugs: None - *Family History Maternal Family History: Family History (Last Reviewed 08/03/19 @ 13:56 by Chanda Blair) Father CAD (coronary artery disease) Mother CAD (coronary artery disease) Hypertension History Items: High Cholesterol, Heart Disease, Hypertension Paternal Family History: Family History (Last Reviewed 08/03/19 @ 13:56 by Chanda Blair) Father CAD (coronary artery disease) Mother CAD (coronary artery disease) Hypertension History Items: High Cholesterol, Heart Disease, Hypertension Review of Systems Constitutional: Reports: Chills, Fatigue Eyes: Denies: Blurred vision, Double vision HEENT: Denies: Head Aches, Sinus Congestion, Sinus Drainage Cardiovascular: Denies: Chest Pain, Palpitations Respiratory: Reports: Cough, Shortness of Breath Gastrointestinal: Denies: Abdominal Pain, Nausea, Vomiting Genitourinary: Denies: Dysuria Musculoskeletal: Denies: Joint Pain, Joint Tenderness Skin: Denies: Rash, Wounds Neurological: Denies: Numbness, Tingling, Focal weakness Psychiatric: Denies: Anxiety, Depression, Homicidal Ideations, Suicidal Ideations Hematologic/ Lymphatic: Denies: Easy Bruising, Easy Bleeding Patient Problems: Active and Suspected Problems (Last Reviewed 08/03/19 @ 13:56 by Chanda Blair) Pneumonia due to COVID-19 virus (Acute) Acute respiratory failure with hypoxia (Acute) Elevated LFTs (Acute) Objective: The patient's most recent lab work, culture data and imaging studies have all been personally reviewed. Surface echocardiogram from 2016 revealed mild segmental systolic dysfunction with an ejection fraction of 50%. Coronavirus PCR was positive on July 06. Respiratory viral panel was negative. Blood and sputum cultures are pending. - Physical Exam Vitals/I&O's: Vital Signs Temp Pulse Resp BP Pulse Ox 97.5 F L 74 20 H 137/71 H 93 07/07/20 02:36 07/07/20 03:53 07/07/20 02:36 07/07/20 02:36 07/07/20 02:36 Oxygen Flow Rate (L/min) 10 Oxygen Delivery Method Nasal Cannula Weight: 161 lb 9.581 oz Body Mass Index (BMI) 26.0 Intake and Output for Last 24 Hours 07/05/20 07/06/20 07/07/20 23:59 23:59 23:59 Intake Total 750 / 750 150 / 150 Output Total 400 / 400 Balance 350 / 350 150 / 150 General: Alert, Cooperative, No apparent distress HEENT: Atraumatic, PERRLA, Normocephalic Oral: Moist Mucosa, No Gingival or Mucosal Lesions/ Ulcerations Neck: Supple, No Nodes, Trachea Midline Lungs: Diminished, - - Speaking in complete sentences. No accessory muscle use. Cardiovascular: Regular rate, Regular Rhythm Abdomen: Bowel Sounds Present, Soft, Non Tender Extremities: No clubbing, No cyanosis, No edema Skin: No breakdown Musculoskeletal: No Tenderness to Palpation of Joints or Extremities Lymphatic: No Cervical, Supraclavicular, or Inguinal Adenopathy Neurological: Cranial nerves II-XII grossly intact, Neuro grossly intact Psych/Mental Status: Normal Affect, Appropriate Labs (Last 48 Hours) 07/06/20 07/06/20 07/06/20 10:40 10:40 10:40 WBC 12.7 H RBC 5.44 Hgb 16.0 Hct 50.0 MCV 91.9 MCH 29.4 MCHC 32.0 RDW Std Deviation 45.5 H RDW Coeff of Khris 13.5 Plt Count 400 MPV 10.5 Immature Gran % (Auto) 2.200 H Neut % (Auto) 81.3 H Lymph % (Auto) 8.7 L [place] % (Auto) 6.8 Eos % (Auto) 0.5 Baso % (Auto) 0.5 Absolute Neuts (auto) 10.4 H Absolute Lymphs (auto) 1.11 Nucleated RBC % 0 D-Dimer Quant (PE/DVT) 8.89 H* Sodium 142 Potassium 4.2 Chloride 108 H Carbon Dioxide 25.0 Anion Gap 9 BUN 39 H Creatinine 1.59 H Estim Creat Clear Calc 36.78 Est GFR (MDRD) Af Amer 55 L Est GFR (MDRD) Non-Af 46 L BUN/Creatinine Ratio 24.5 H Glucose 127 H Lactic Acid Calcium 9.5 Magnesium Ferritin Total Bilirubin 0.80 AST 365 H ALT 357 H Alkaline Phosphatase 141 H Lactate Dehydrogenase Troponin I < 0.015 C-React Prot Ext Range B-Natriuretic Peptide Total Protein 8.4 H Albumin 3.0 L Globulin 5.4 H Albumin/Globulin Ratio 0.6 L Procalcitonin COVID-19 (ISABELLA) 07/06/20 07/06/20 07/06/20 10:40 10:40 10:40 WBC RBC Hgb Hct MCV MCH MCHC RDW Std Deviation RDW Coeff of Khris Plt Count MPV Immature Gran % (Auto) Neut % (Auto) Lymph % (Auto) [place] % (Auto) Eos % (Auto) Baso % (Auto) Absolute Neuts (auto) Absolute Lymphs (auto) Nucleated RBC % D-Dimer Quant (PE/DVT) Sodium Potassium Chloride Carbon Dioxide Anion Gap BUN Creatinine Estim Creat Clear Calc Est GFR (MDRD) Af Amer Est GFR (MDRD) Non-Af BUN/Creatinine Ratio Glucose Lactic Acid 1.9 Calcium Magnesium Ferritin Total Bilirubin AST ALT Alkaline Phosphatase Lactate Dehydrogenase Troponin I C-React Prot Ext Range B-Natriuretic Peptide 15.3 Total Protein Albumin Globulin Albumin/Globulin Ratio Procalcitonin 0.18 H COVID-19 (ISABELLA) 07/06/20 07/06/20 10:40 11:25 WBC RBC Hgb Hct MCV MCH MCHC RDW Std Deviation RDW Coeff of Khris Plt Count MPV Immature Gran % (Auto) Neut % (Auto) Lymph % (Auto) [place] % (Auto) Eos % (Auto) Baso % (Auto) Absolute Neuts (auto) Absolute Lymphs (auto) Nucleated RBC % D-Dimer Quant (PE/DVT) Sodium Potassium Chloride Carbon Dioxide Anion Gap BUN Creatinine Estim Creat Clear Calc Est GFR (MDRD) Af Amer Est GFR (MDRD) Non-Af BUN/Creatinine Ratio Glucose Lactic Acid Calcium Magnesium 2.8 H Ferritin 5187 H Total Bilirubin AST ALT Alkaline Phosphatase Lactate Dehydrogenase 999 H Troponin I C-React Prot Ext Range 175.00 H B-Natriuretic Peptide Total Protein Albumin Globulin Albumin/Globulin Ratio Procalcitonin COVID-19 (ISABELLA) Detected Microbiology 07/06/20 19:20 Interface Orders Gram Stain - Preliminary 07/06/20 11:25 Mucosa - Nasopharyngeal Respiratory Panel (PCR) - Final 07/06/20 10:40 Mucosa - Nose SARS-CoV-2 Antigen (Rapid) - Final Clinical Impression(s) from Imaging Studies Chest X-Ray 07/06/20 11:10 IMPRESSION: Bilateral pulmonary infiltrates in the preferential peripheral distribution as described. Pneumonitis secondary to Covid should be ruled out. Electronically Signed: Dereje Diaz MD at 11:22 EST , Service support , Chest CTA 07/06/20 11:19 IMPRESSION: Multiple areas of groundglass appearance in the right upper and right lower lobes as well as in the lingular segment of left upper lobe and left lower lobe. This is suggestive of Covid pneumonitis. Chronic interstitial fibrosis with subpleural blebs. Electronically Signed: Dereje Diaz MD at 12:25 EST , Service support , Current Medications Albuterol Sulfate (Albuterol Sulfate 8 Gm Inhaler (60 Puffs)) 4 - 8 puff INHALATION Q4H PRN PRN PRN Reason: Dyspnea, wheezing Alprazolam (Alprazolam 0.5 Mg Tablet) 0.5 mg PO QHS PRN PRN Reason: SLEEP Last Admin: 07/06/20 20:14 Dose: 0.5 mg Documented by: Amiodarone HCl (Amiodarone 200 Mg Tablet) 100 mg PO DAILY [facility] Amlodipine Besylate (Amlodipine 2.5 Mg Tablet) 2.5 mg PO DAILY [facility] Aspirin (Aspirin E.C. 81 Mg Tablet) 81 mg PO DAILY [facility] Carvedilol (Carvedilol 3.125 Mg Tablet) 3.125 mg PO BID SH[facility]ON Last Admin: 07/06/20 20:13 Dose: 3.125 mg Documented by: Cyanocobalamin (Cyanocobalamin 500 Mcg Tablet) 500 mcg PO DAILY [facility] Dexamethasone Sodium Phosphate (Dexamethasone 10 Mg/Ml Vial) 6 mg IV DAILY [facility] Stop: 07/16/20 10:01 Enoxaparin Sodium (Enoxaparin 30 Mg/0.3 Ml Syringe) 30 mg SC BID [facility] Last Admin: 07/06/20 20:14 Dose: 30 mg Documented by: Ferrous Sulfate (Ferrous Sulfate 325 Mg Tablet) 325 mg PO DAILY [facility] Finasteride (Finasteride 5 Mg Tablet) 5 mg PO DAILY [facility] Hydralazine HCl (Hydralazine 20 Mg/Ml Vial) 10 mg IV Q4H PRN PRN PRN Reason: SBP > 160 Remdesivir 100 mg/ Sodium (Chloride) 250 mls @ 125 mls/hr IV DAILY [facility] Stop: 07/10/20 11:59 Sodium Chloride () 250 mls @ 15 mls/hr IV .[id number] PRN PRN Reason: Saline Flush Levothyroxine Sodium (Levothyroxine 50 Mcg Tablet) 50 mcg PO DAILY [facility] Lisinopril (Lisinopril 20 Mg Tablet) 20 mg PO BID [facility] Last Admin: 07/06/20 20:12 Dose: 20 mg Documented by: Magnesium Chloride (Magnesium Chloride 64 Mg Delay Rel.Tablet) 128 mg PO QHS [facility] Last Admin: 07/06/20 20:13 Dose: 128 mg Documented by: Melatonin (Melatonin 10 Mg Tablet) 20 mg PO [facility] Last Admin: 07/06/20 20:12 Dose: 20 mg Documented by: Oxycodone HCl (Oxycodone 5 Mg Tablet) 5 mg PO Q4H PRN PRN Reason: Pain Score 1-10 Last Admin: 07/06/20 20:13 Dose: 5 mg Documented by: Pantoprazole Sodium (Pantoprazole Sodium 40 Mg Tablet) 40 mg PO DAILY [facility] Pravastatin Sodium (Pravastatin 20 Mg Tablet) 20 mg PO QHS [facility] Last Admin: 07/06/20 20:13 Dose: 20 mg Documented by: Sodium Chloride (0.9% Saline Lock 10 Ml Syringe) 10 - 40 ml IV UD PRN PRN Reason: SALINE FLUSH Last Admin: 07/06/20 14:27 Dose: 10 ml Documented by: Tamsulosin HCl (Tamsulosin Hcl 0.4 Mg Capsule) 0.4 mg PO DAILY [facility] Assessment/Plan All Active Problems (Last Reviewed 08/03/19 @ 13:56 by Chanda Blair) Pneumonia due to COVID-19 virus (Acute) Acute respiratory failure with hypoxia (Acute) Elevated LFTs (Acute) RECOMMENDATIONS: 1. Continue to wean supplemental oxygen to maintain saturations at or above 90%. 2. Continue remdesivir to complete treatment course. Continue to monitor liver and renal function accordingly. 3. Continue Decadron to complete 10-day treatment course. 4. Although CTA was negative, given elevated D-dimer, recommend transitioning to therapeutic dose Lovenox. 5. Encourage incentive spirometer use and mobilize patient as tolerated. IMPRESSIONS: 1. Acute hypoxemic respiratory failure secondary to COVID-19 pneumonia Plan to continue current supportive measures including supplemental oxygen to maintain saturations at or above 90%. The patient will be continued on remdesivir. Liver and renal function will be monitored. The patient will also be continued on Decadron to complete a 10-day treatment course. Although the patient did have a negative CTA chest for pulmonary embolism, he does have an elevated D-dimer level along with interval worsening in his respiratory status. Therefore, I did recommend that he be transition from prophylactic to therapeutic dosing of Lovenox. Continue to encourage incentive spirometer use and mobilize patient as tolerated. 2. History of cardiomyopathy/mitral valve regurgitation/ventricular ectopy status post ICD placement/GERD/hypothyroidism/chronic pain syndrome Complicates care, management, recovery and prognosis. Continue home medications as indicated. This note was generated with Narrativeation software. It may contain incorrect words, spelling, and punctuation that were not noted in checking the note before signing. Inpatient E&M: [id number] Init Hosp L3
[2020-07-07 06:39] LABS: Hematocrit 43.8 % (40-54); Hemoglobin 13.3 g/dL (13.0-16.5); Mean Corp Hgb Conc 30.4 g/dL (32-36); Mean Corpuscular Hgb 28.5 pg (27.0-32.0); Mean Corpuscular Volume 93.8 fL (80-94); Mean Platelet Vol. 10.6 fl (6.2-12.0); Platelet Count 313 K/mm3 (150-450); RBC Distribution Width CV 13.6 % (11.6-14.6); RBC Distribution Width SD 47.4 fl (35.1-43.9); Red Blood Count 4.67 M/mm3 (4.6-6.2); White Blood Count 8.8 K/mm3 (4.4-11.0)
[2020-07-07 07:06] LABS: ALB/GLOB Ratio 0.6 RATIO (0.9-2.4); AST(SGOT) 224 U/L (15-37); Alanine Aminotransfer ALT/SGPT 324 U/L (16-61); Albumin, Serum 2.5 g/dL (3.2-5.0); Alkaline Phosphatase 119 U/L (45-117); Anion Gap 6 (5-15); BUN 46 mg/dL (7-18); BUN/Creat Ratio 34.3 RATIO (10-20); Calcium,Total 9.1 mg/dL (8.5-10.1); Chloride 111 mmol/L (98-107); Creatinine, Serum 1.34 mg/dL (0.70-1.30); EST Glomerular Filtration Rate 55 mL/min (>60); Est Glom Filt Rate - Afr Amer 67 mL/min (>60); Estimated Creatinine Clearance 43.64 ml/min; Globulin 4.5 g/dL (2.2-4.2); Glucose 140 mg/dL (74-106); Potassium 4.5 mmol/L (3.5-5.1); Sodium Level 141 mmol/L (136-145)
--- NOTE | 2020-07-07 07:31 | PCS.PANDOC ---
PANDEMIC DOCUMENTATION INITIATED: Date: 05/02/2020 Time:
--- NOTE | 2020-07-07 07:42 | PN_ITS ---
Patient Problems: Active and Suspected Problems (Last Reviewed 08/03/19 @ 13:56 by Chanda Blair) Pneumonia due to COVID-19 virus (Acute) Acute respiratory failure with hypoxia (Acute) Elevated LFTs (Acute) Subjective: Patient overnight with continued significant oxygenation requirements ever had improved since initial ED presentation, maintaining 90 to 94% on 10 L nasal cannula. Patient with onset significantly loose stools overnight with initiation of loperamide. Patient notes feeling improved since initial ED presentation but is significantly fatigued. He does report that his who is specifically educated in the emergency room that she need to be on quarantine was at work, her spouse noting she works for [employer] therefore infectious control RN was contacted by staff to investigate. Patient denies fevers, chills, nausea, emesis, chest pain. Objective: Physical Examination: General: awake, alert, oriented x 3 and cooperative, seated upright in the medical surgical Covid bed, fatigued but less ill-appearing the day prior, currently on 10 L nasal cannula. Skin: normal color, turgor, no icterus, cyanosis. HEENT: AT/NC, EOMI, PERRLA, improved MMM. Lungs: Continued diminished breath sounds throughout, greater bases, currently no evidence of respiratory distress but still requiring significant supplementation, 10 L nasal cannula currently, no rales, ronchi or wheezing. Heart: Improved, regular rate and regular rhythm; no gallop, rub audible. Abdomen: soft, NTTP, ND, hyperactive BS. Extremities: no cyanosis, clubbing, or edema. Neurological: patient awake, alert, oriented as noted; cognitive function intact; pupils equally reactive to light and accomodation; cranial nerves II-XII grossly normal, moving all 4 extremities, no focal deficits, strength improving but remains moderately to severely globally decreased secondary to acute presentation. Psychiatric: affect appears fatigued, improved since day prior, no acute evidence of depressive or anxiety feelings. Vitals/I&O's: Vital Signs Temp Pulse Resp BP Pulse Ox 97.5 F L 74 20 H 137/71 H 93 07/07/20 02:36 07/07/20 03:53 07/07/20 02:36 07/07/20 02:36 07/07/20 02:36 Oxygen Flow Rate (L/min) 10 Oxygen Delivery Method Nasal Cannula Weight: 161 lb 9.581 oz Body Mass Index (BMI) 26.0 Intake and Output for Last 24 Hours 07/05/20 07/06/20 07/07/20 23:59 23:59 23:59 Intake Total 750 / 750 150 / 150 Output Total 400 / 400 300 / 300 Balance 350 / 350 -150 / -150 Microbiology Past 72 Hours 07/07/20 06:30 Urine, Clean Catch Legionella Antigen - Final 07/07/20 06:30 Urine, Clean Catch Streptococcus pneumoniae Antigen (M - Final 07/06/20 19:20 Interface Orders Gram Stain - Preliminary 07/06/20 11:25 Mucosa - Nasopharyngeal Respiratory Panel (PCR) - Final 07/06/20 10:40 Mucosa - Nose SARS-CoV-2 Antigen (Rapid) - Final Laboratory Results 07/06/20 10:40: WBC 12.7 H, RBC 5.44, Hgb 16.0, Hct 50.0, MCV 91.9, MCH 29.4, MCHC 32.0, RDW Std Deviation 45.5 H, RDW Coeff of Khris 13.5, Plt Count 400, MPV 10.5, Immature Gran % (Auto) 2.200 H, Neut % (Auto) 81.3 H, Lymph % (Auto) 8.7 L , [place] % (Auto) 6.8, Eos % (Auto) 0.5, Baso % (Auto) 0.5, Absolute Neuts (auto) 10.4 H, Absolute Lymphs (auto) 1.11, Nucleated RBC % 0 07/06/20 10:40: D-Dimer Quant (PE/DVT) 8.89 H* 07/06/20 10:40: Sodium 142, Potassium 4.2, Chloride 108 H, Carbon Dioxide 25.0, Anion Gap 9, BUN 39 H, Creatinine 1.59 H, Estim Creat Clear Calc 36.78, Est GFR (MDRD) Af Amer 55 L, Est GFR (MDRD) Non-Af 46 L, BUN/Creatinine Ratio 24.5 H, Glucose 127 H, Calcium 9.5, Total Bilirubin 0.80, AST 365 H, ALT 357 H, Alkaline Phosphatase 141 H, Troponin I < 0.015, Total Protein 8.4 H, Albumin 3.0 L, Globulin 5.4 H, Albumin/Globulin Ratio 0.6 L 07/06/20 10:40: Lactic Acid 1.9 07/06/20 10:40: B-Natriuretic Peptide 15.3 07/06/20 10:40: Procalcitonin 0.18 H 07/06/20 10:40: Magnesium 2.8 H, Ferritin 5187 H, Lactate Dehydrogenase 999 H, C-React Prot Ext Range 175.00 H 07/06/20 11:25: COVID-19 (ISABELLA) Detected 07/07/20 06:05: WBC 8.8, RBC 4.67, Hgb 13.3, Hct 43.8, MCV 93.8, MCH 28.5, MCHC 30.4 L, RDW Std Deviation 47.4 H, RDW Coeff of Khris 13.6, Plt Count 313, MPV 10.6 07/07/20 06:05: Sodium 141, Potassium 4.5, Chloride 111 H, Carbon Dioxide 24.0, Anion Gap 6, BUN 46 H, Creatinine 1.34 H, Estim Creat Clear Calc 43.64, Est GFR (MDRD) Af Amer 67, Est GFR (MDRD) Non-Af 55 L, BUN/Creatinine Ratio 34.3 H, Glucose 140 H, Calcium 9.1, Total Bilirubin 0.50, AST 224 H, ALT 324 H, Alkaline Phosphatase 119 H, Total Protein 7.0, Albumin 2.5 L, Globulin 4.5 H, Albumin/Globulin Ratio 0.6 L Current Medications Albuterol Sulfate (Albuterol Sulfate 8 Gm Inhaler (60 Puffs)) 4 - 8 puff INHALATION Q4H PRN PRN PRN Reason: Dyspnea, wheezing Alprazolam (Alprazolam 0.5 Mg Tablet) 0.5 mg PO QHS PRN PRN Reason: SLEEP Last Admin: 07/06/20 20:14 Dose: 0.5 mg Documented by: Amiodarone HCl (Amiodarone 200 Mg Tablet) 100 mg PO DAILY [facility] Amlodipine Besylate (Amlodipine 2.5 Mg Tablet) 2.5 mg PO DAILY [facility] Aspirin (Aspirin E.C. 81 Mg Tablet) 81 mg PO DAILY [facility] Carvedilol (Carvedilol 3.125 Mg Tablet) 3.125 mg PO BID [facility] Last Admin: 07/06/20 20:13 Dose: 3.125 mg Documented by: Cyanocobalamin (Cyanocobalamin 500 Mcg Tablet) 500 mcg PO DAILY [facility] Dexamethasone Sodium Phosphate (Dexamethasone 10 Mg/Ml Vial) 6 mg IV DAILY [facility] Stop: 07/16/20 10:01 Enoxaparin Sodium (Enoxaparin 30 Mg/0.3 Ml Syringe) 30 mg SC BID [facility] Last Admin: 07/06/20 20:14 Dose: 30 mg Documented by: Ferrous Sulfate (Ferrous Sulfate 325 Mg Tablet) 325 mg PO DAILY [facility] Finasteride (Finasteride 5 Mg Tablet) 5 mg PO DAILY [facility] Hydralazine HCl (Hydralazine 20 Mg/Ml Vial) 10 mg IV Q4H PRN PRN PRN Reason: SBP > 160 Remdesivir 100 mg/ Sodium (Chloride) 250 mls @ 125 mls/hr IV DAILY [facility] Stop: 07/10/20 11:59 Sodium Chloride () 250 mls @ 15 mls/hr IV .[id number] PRN PRN Reason: Saline Flush Levothyroxine Sodium (Levothyroxine 50 Mcg Tablet) 50 mcg PO DAILY [facility] Lisinopril (Lisinopril 20 Mg Tablet) 20 mg PO BID [facility] Last Admin: 07/06/20 20:12 Dose: 20 mg Documented by: Magnesium Chloride (Magnesium Chloride 64 Mg Delay Rel.Tablet) 128 mg PO QHS [facility] Last Admin: 07/06/20 20:13 Dose: 128 mg Documented by: Melatonin (Melatonin 10 Mg Tablet) 20 mg PO [facility] Last Admin: 07/06/20 20:12 Dose: 20 mg Documented by: Oxycodone HCl (Oxycodone 5 Mg Tablet) 5 mg PO Q4H PRN PRN Reason: Pain Score 1-10 Last Admin: 07/06/20 20:13 Dose: 5 mg Documented by: Pantoprazole Sodium (Pantoprazole Sodium 40 Mg Tablet) 40 mg PO DAILY [facility] Pravastatin Sodium (Pravastatin 20 Mg Tablet) 20 mg PO QHS [facility] Last Admin: 07/06/20 20:13 Dose: 20 mg Documented by: Sodium Chloride (0.9% Saline Lock 10 Ml Syringe) 10 - 40 ml IV UD PRN PRN Reason: SALINE FLUSH Last Admin: 07/06/20 14:27 Dose: 10 ml Documented by: Tamsulosin HCl (Tamsulosin Hcl 0.4 Mg Capsule) 0.4 mg PO DAILY [facility] STROKE Vital Signs/Narrative: Vital Signs Pulse 07/07/20 03:53 74 Medical Necessity - Tobacco Use Smoking Status: Former smoker Tobacco Use: Non-smoker Assessment/Plan All Active Problems (Last Reviewed 08/03/19 @ 13:56 by Chanda Blair) Pneumonia due to COVID-19 virus (Acute) Acute respiratory failure with hypoxia (Acute) Elevated LFTs (Acute) The patient is a 75 y/o M w/ PMHx: Chronic anemia, HTN, HLD, Hypothyroidism, Valvular Heart Disease, Nonischemic Cardiomyopathy s/p AICD/pacemaker, Former Tobacco use, Anxiety, BPH, CKD stage III, GERD, ? VT/PAF, Chronic pain syndrome who presents to the [facility] ED on 07/06/20 with history of ~ 5 days of initially nausea, poor oral intake, fatigue, malaise, diarrhea, headaches primarily frontal/throbbing with no cough and dyspnea worsening over the last ~ 24 hours with fever per EMS upon their evaluation prompting ED presentation with noted initial evaluation with 81% on RA. 1. Acute Hypoxic Respiratory Failure secondary to Acute Bilateral Pneumonia secondary to Acute Viral Syndrome, COVID-19 complicated by underlying chronic interstitial fibrotic change and suspected underlying COPD given prolonged tobacco use history: Patient admitted to the Covid unit as telemetry status, ED evaluation with D-dimer 8.89 with CTPA as noted given notably elevated d-dimer with multiple areas of groundglass appearance in the right upper and right lower lobe as well as lingular segment of left upper lobe and left lower lobe suggestive of Covid pneumonitis with chronic interstitial fibrotic and subpleural blebs evident, continue to require high flow oxygen overnight but did not require BiPAP or air Vo, as needed albuterol, encourage head of bed and continue I-S aggressive intervention, current sputum culture with preliminary possible gram-negative heath possibly Haemophilus, negative respiratory panel, PCR Covid resulted positive as expected, urine antigens negative, ferritin 5187, LDH 999, troponin less than 0.015, CRP 175, BNP 15.3, procalcitonin 0.18, will continue to trend dimer, initially placed on chemoprophylaxis Lovenox 30 mg subcu twice daily however discussed with pulmonary critical care and 07/07/2020 despite no obvious evidence of pulmonary emboli transition to full anticoagulation to be cautious especially given ongoing significant oxygen requirements, continue supportive care including q 2 hour turning including prone given no prone bed availability and judicious hydration, closely monitor for worsening status for ARDS and multiorgan failure, pulmonary critical care and infectious disease following, continued on IV Decadron as well as IV remdesivir with close monitoring of patient's CMP. Given patient history of nonischemic cardiomyopathy will need to closely monitor and likely expect patient necessity for IV Lasix. 2. Elevated LFTs likely secondary to #1: Admission CMP with bilirubin 0.80, AST/ALT 365/357, alk phos 141--> 07/07/2020 CMP with total bilirubin 0.50, AST/ALT 224/324, alk phos 119, improving since day prior, will continue to closely trend especially given usage of IV remdesivir. 3. Nonischemic cardiomyopathy: Status post AICD/pacemaker, continue patient aspirin, Coreg, lisinopril, statin therapy, not on any diuretic, will closely monitor given acute presentation as noted. 10/11/2017 echocardiogram with normal LV size, mild concentric LVH, EF 60%, RV normal size, RV systolic function normal, moderately dilated LA, known calcified echodensity in the left atrium. 4. Questionable VT/cardiac arrhythmia/PAF: Patient currently on low-dose daily amiodarone, unclear if prior cardiac arrhythmia, will continue to closely monitor, will maintain also on Coreg, not chronically anticoagulated of note. 5. Hypertension: Continue home regimen including Coreg, lisinopril with hold parameters, PRN hydralazine. 6. Hyperlipidemia: Continue home statin regimen. 7. Chronic anemia, iron deficiency: Admission hemoglobin 16, will continue patient iron supplementation, continue to trend CBC. 8. Chronic Kidney Disease Stage III: Admission BUN/Cr 39/1.59, baseline renal function 1.3-1.7, 07/07/2020 CMP with BUN/: 46/1.34, continue to monitor. 9. Hypothyroidism: Continue home synthroid regimen. 10. GERD: Continue patient PPI. 11. BPH: We will continue patient home finasteride and Flomax regimen. 12. DVT prophylaxis: SCDs, Lovenox transition to full anticoagulation dosing.. 13. CODE status: Full Code status. Inpatient E&M: [id number] [facility] Hosp L3
[2020-07-07] MEDS: dexAMETHasone 10 MG/ML Vial 6 MG IV (09:52)
[2020-07-07] MEDS: Levothyroxine 50 MCG Tablet PO (09:53)
[2020-07-07] MEDS: amLODIPine 2.5 MG Tablet PO (09:53)
[2020-07-07] MEDS: Finasteride 5 MG Tablet PO (09:53)
[2020-07-07] MEDS: Aspirin E.C. 81 MG Tablet PO (09:53)
[2020-07-07] MEDS: Carvedilol 3.125 MG TABLET PO ×2 (09:53→20:48)
[2020-07-07] MEDS: Lisinopril 20 MG Tablet PO ×2 (09:53→20:48)
[2020-07-07] MEDS: Tamsulosin HCl 0.4 MG Capsule PO (09:53)
[2020-07-07] MEDS: Ferrous Sulfate 325 MG Tablet PO (09:53)
[2020-07-07] MEDS: Pantoprazole Sodium 40 MG Tablet PO (09:53)
[2020-07-07] MEDS: Amiodarone 200 MG Tablet 100 MG PO (09:53)
[2020-07-07] MEDS: Cyanocobalamin 500 MCG Tablet PO (09:53)
--- NOTE | 2020-07-07 09:59 | NURSING ---
SPO2 83% on room air at rest SPO2 94% on 3l NC at rest less than 5 minutes on room air with exertion to BSC spo2 85% within a few minutes pt recovered to 94% on 3L while on BSC SPO2 86-88% on 6L NC less than [address]
--- NOTE | 2020-07-07 10:18 | PN.ID_ITS ---
Patient Problems: Active and Suspected Problems (Last Reviewed 08/03/19 @ 13:56 by Chanda Blair) Pneumonia due to COVID-19 virus (Acute) Acute respiratory failure with hypoxia (Acute) Elevated LFTs (Acute) Subjective: Feeling weak when he gets up, no fever, minimal sputum - Physical Exam Vitals/I&O's: Vital Signs Temp Pulse Resp BP Pulse Ox 97.9 F 91 18 130/74 H 92 07/07/20 10:00 07/07/20 10:00 07/07/20 10:00 07/07/20 10:00 07/07/20 10:00 Oxygen Flow Rate (L/min) 13 Oxygen Delivery Method Nasal Cannula Weight: 73.3 kg Body Mass Index (BMI) 26.0 Intake and Output for Last 24 Hours 07/05/20 07/06/20 07/07/20 23:59 23:59 23:59 Intake Total 750 / 750 150 / 150 Output Total 400 / 400 300 / 300 Balance 350 / 350 -150 / -150 General: Alert, Cooperative, No apparent distress Lungs: Diminished Cardiovascular: Regular rate, Regular Rhythm Abdomen: Soft, Non Tender, Non-Distended Skin: No rashes Microbiology Past 72 Hours 07/07/20 06:30 Urine, Clean Catch Legionella Antigen - Final 07/07/20 06:30 Urine, Clean Catch Streptococcus pneumoniae Antigen (M - Final 07/06/20 19:20 Interface Orders Gram Stain - Preliminary 07/06/20 11:25 Mucosa - Nasopharyngeal Respiratory Panel (PCR) - Final 07/06/20 10:40 Mucosa - Nose SARS-CoV-2 Antigen (Rapid) - Final Laboratory Results 07/06/20 10:40: WBC 12.7 H, RBC 5.44, Hgb 16.0, Hct 50.0, MCV 91.9, MCH 29.4, MCHC 32.0, RDW Std Deviation 45.5 H, RDW Coeff of Khris 13.5, Plt Count 400, MPV 10.5, Immature Gran % (Auto) 2.200 H, Neut % (Auto) 81.3 H, Lymph % (Auto) 8.7 L , [place] % (Auto) 6.8, Eos % (Auto) 0.5, Baso % (Auto) 0.5, Absolute Neuts (auto) 10.4 H, Absolute Lymphs (auto) 1.11, Nucleated RBC % 0 07/06/20 10:40: D-Dimer Quant (PE/DVT) 8.89 H* 07/06/20 10:40: Sodium 142, Potassium 4.2, Chloride 108 H, Carbon Dioxide 25.0, Anion Gap 9, BUN 39 H, Creatinine 1.59 H, Estim Creat Clear Calc 36.78, Est GFR (MDRD) Af Amer 55 L, Est GFR (MDRD) Non-Af 46 L, BUN/Creatinine Ratio 24.5 H, Glucose 127 H, Calcium 9.5, Total Bilirubin 0.80, AST 365 H, ALT 357 H, Alkaline Phosphatase 141 H, Troponin I < 0.015, Total Protein 8.4 H, Albumin 3.0 L, Globulin 5.4 H, Albumin/Globulin Ratio 0.6 L 07/06/20 10:40: Lactic Acid 1.9 07/06/20 10:40: B-Natriuretic Peptide 15.3 07/06/20 10:40: Procalcitonin 0.18 H 07/06/20 10:40: Magnesium 2.8 H, Ferritin 5187 H, Lactate Dehydrogenase 999 H, C-React Prot Ext Range 175.00 H 07/06/20 11:25: COVID-19 (ISABELLA) Detected 07/07/20 06:05: WBC 8.8, RBC 4.67, Hgb 13.3, Hct 43.8, MCV 93.8, MCH 28.5, MCHC 30.4 L, RDW Std Deviation 47.4 H, RDW Coeff of Khris 13.6, Plt Count 313, MPV 10.6 07/07/20 06:05: Sodium 141, Potassium 4.5, Chloride 111 H, Carbon Dioxide 24.0, Anion Gap 6, BUN 46 H, Creatinine 1.34 H, Estim Creat Clear Calc 43.64, Est GFR (MDRD) Af Amer 67, Est GFR (MDRD) Non-Af 55 L, BUN/Creatinine Ratio 34.3 H, Glucose 140 H, Calcium 9.1, Total Bilirubin 0.50, AST 224 H, ALT 324 H, Alkaline Phosphatase 119 H, Total Protein 7.0, Albumin 2.5 L, Globulin 4.5 H, Albumin/Globulin Ratio 0.6 L Current Medications Albuterol Sulfate (Albuterol Sulfate 8 Gm Inhaler (60 Puffs)) 4 - 8 puff INHALATION Q4H PRN PRN PRN Reason: Dyspnea, wheezing Alprazolam (Alprazolam 0.5 Mg Tablet) 0.5 mg PO QHS PRN PRN Reason: SLEEP Last Admin: 07/06/20 20:14 Dose: 0.5 mg Documented by: Amiodarone HCl (Amiodarone 200 Mg Tablet) 100 mg PO DAILY [facility] Last Admin: 07/07/20 09:53 Dose: 100 mg Documented by: Amlodipine Besylate (Amlodipine 2.5 Mg Tablet) 2.5 mg PO DAILY [facility] Last Admin: 07/07/20 09:53 Dose: 2.5 mg Documented by: Aspirin (Aspirin E.C. 81 Mg Tablet) 81 mg PO DAILY [facility] Last Admin: 07/07/20 09:53 Dose: 81 mg Documented by: Carvedilol (Carvedilol 3.125 Mg Tablet) 3.125 mg PO BID [facility] Last Admin: 07/07/20 09:53 Dose: 3.125 mg Documented by: Cyanocobalamin (Cyanocobalamin 500 Mcg Tablet) 500 mcg PO DAILY [facility] Last Admin: 07/07/20 09:53 Dose: 500 mcg Documented by: Dexamethasone Sodium Phosphate (Dexamethasone 10 Mg/Ml Vial) 6 mg IV DAILY [facility] Stop: 07/16/20 10:01 Last Admin: 07/07/20 09:52 Dose: 6 mg Documented by: Enoxaparin Sodium (Enoxaparin 80 Mg/0.8 Ml Syringe) 70 mg SC BID [facility] Ferrous Sulfate (Ferrous Sulfate 325 Mg Tablet) 325 mg PO DAILY [facility] Last Admin: 07/07/20 09:53 Dose: 325 mg Documented by: Finasteride (Finasteride 5 Mg Tablet) 5 mg PO DAILY [facility] Last Admin: 07/07/20 09:53 Dose: 5 mg Documented by: Hydralazine HCl (Hydralazine 20 Mg/Ml Vial) 10 mg IV Q4H PRN PRN PRN Reason: SBP > 160 Remdesivir 100 mg/ Sodium (Chloride) 250 mls @ 125 mls/hr IV DAILY [facility] Stop: 07/10/20 11:59 Last Admin: 07/07/20 09:46 Dose: 125 mls/hr Documented by: Sodium Chloride () 250 mls @ 15 mls/hr IV .[id number] PRN PRN Reason: Saline Flush Levothyroxine Sodium (Levothyroxine 50 Mcg Tablet) 50 mcg PO DAILY [facility] Last Admin: 07/07/20 09:53 Dose: 50 mcg Documented by: Lisinopril (Lisinopril 20 Mg Tablet) 20 mg PO BID [facility] Last Admin: 07/07/20 09:53 Dose: 20 mg Documented by: Magnesium Chloride (Magnesium Chloride 64 Mg Delay Rel.Tablet) 128 mg PO QHS [facility] Last Admin: 07/06/20 20:13 Dose: 128 mg Documented by: Melatonin (Melatonin 10 Mg Tablet) 20 mg PO HS [facility] Last Admin: 07/06/20 20:12 Dose: 20 mg Documented by: Oxycodone HCl (Oxycodone 5 Mg Tablet) 5 mg PO Q4H PRN PRN Reason: Pain Score 1-10 Last Admin: 07/06/20 20:13 Dose: 5 mg Documented by: Pantoprazole Sodium (Pantoprazole Sodium 40 Mg Tablet) 40 mg PO DAILY [facility] Last Admin: 07/07/20 09:53 Dose: 40 mg Documented by: Pravastatin Sodium (Pravastatin 20 Mg Tablet) 20 mg PO QHS [facility] Last Admin: 07/06/20 20:13 Dose: 20 mg Documented by: Sodium Chloride (0.9% Saline Lock 10 Ml Syringe) 10 - 40 ml IV UD PRN PRN Reason: SALINE FLUSH Last Admin: 07/06/20 14:27 Dose: 10 ml Documented by: Tamsulosin HCl (Tamsulosin Hcl 0.4 Mg Capsule) 0.4 mg PO DAILY [facility] Last Admin: 07/07/20 09:53 Dose: 0.4 mg Documented by: Medical Necessity - Tobacco Use Smoking Status: Former smoker Tobacco Use: Non-smoker Route of nutrition/ use of supplements: [] Nutritional Intake: [] IV Site: [] Maria Catheter: [] - Assessment/Plan Antibiotics: [] Assessment/Plan: [] Active and Suspected Problems (Last Reviewed 08/03/19 @ 13:56 by Chanda Blair) Pneumonia due to COVID-19 virus (Acute) Acute respiratory failure with hypoxia (Acute) Elevated LFTs (Acute) covid with hypoxia and transaminitis - sx started around 07/01. Recommended quarantine and be tested. Recommend 10 days of po dex and started remdesivir, will monitor ALT (stable today). D-dimer was 8.9, CT neg for PE, on lovenox 30mg bid. Worsened O2, pulm consulted. Will follow
[2020-07-07] MEDS: Enoxaparin 80 MG/0.8 ML Syringe 70 MG SC ×2 (10:27→20:49)
--- NOTE | 2020-07-07 11:17 | CASEMGMT ---
RN CM Assessment Note Introduced role of CM to patient's . Patient unable to participate at this time. Demographics, PCP verified. Per , patient was independent and no care needs until became ill with COVID. Presentation: nausea, fatigue, malaise, diarrhea, headache, dyspnea Diagnosis: COVID-19 PCP: Dr. Neeraj Dietrich Specialists: Debbie Sam Insurance: [facility] Preferred Pharmacy: [facility] Prescription Benefit: yes LNOK: , [employer] Living Arrangements: Lives independently in mobile home. no care needs prior to admission. Per , pt was independent with ADL's, walked the dog and did whatever he wanted. Tranportation: drives DME: none. No oxygen or Cpap. If Home oxygen is needed, [facility] providers are: [facility]. HHC: none SNF: none Patient DC Goals: Home on discharge if able. DC Plan: anticipate home CM available for discharge planning coordination. Contact CM for any concerns/needs that may arise. Joy KENN RN ACM
[2020-07-07] MEDS: Loperamide 2 MG Capsule PO ×2 (12:01→17:12)
[2020-07-07] MEDS: MELATONIN 10 MG TABLET 20 MG PO (20:48)
[2020-07-07] MEDS: Pravastatin 20 MG Tablet PO (20:48)
[2020-07-07] MEDS: guaiFENesin 1,200 MG Tablet 1200 MG PO (23:09)
[2020-07-08] VITALS (16 sets, daily range): BP systolic 97–122; BP diastolic 55–69; PULSE 74–101; RESP 12–29; TEMP 36.4–36.8; O2SAT 91–96
[2020-07-08 05:59] LABS: Hematocrit 42.6 % (40-54); Hemoglobin 13.4 g/dL (13.0-16.5); Mean Corp Hgb Conc 31.5 g/dL (32-36); Mean Corpuscular Hgb 28.6 pg (27.0-32.0); Mean Platelet Vol. 10.2 fl (6.2-12.0); Platelet Count 350 K/mm3 (150-450); RBC Distribution Width CV 13.5 % (11.6-14.6); RBC Distribution Width SD 45.9 fl (35.1-43.9); Red Blood Count 4.68 M/mm3 (4.6-6.2); White Blood Count 16.9 K/mm3 (4.4-11.0)
[2020-07-08 06:37] LABS: ALB/GLOB Ratio 0.8 RATIO (0.9-2.4); AST(SGOT) 71 U/L (15-37); Alanine Aminotransfer ALT/SGPT 229 U/L (16-61); Albumin, Serum 2.5 g/dL (3.2-5.0); Alkaline Phosphatase 105 U/L (45-117); Anion Gap 8 (5-15); BUN 47 mg/dL (7-18); BUN/Creat Ratio 38.8 RATIO (10-20); Calcium,Total 8.3 mg/dL (8.5-10.1); Chloride 114 mmol/L (98-107); Creatinine, Serum 1.21 mg/dL (0.70-1.30); EST Glomerular Filtration Rate 62 mL/min (>60); Est Glom Filt Rate - Afr Amer 75 mL/min (>60); Estimated Creatinine Clearance 48.33 ml/min; Globulin 3.3 g/dL (2.2-4.2); Glucose 125 mg/dL (74-106); Potassium 4.1 mmol/L (3.5-5.1); Protein, Total 5.8 g/dL (6.4-8.2); Sodium Level 144 mmol/L (136-145)
--- NOTE | 2020-07-08 07:04 | PCM.PN.PUL ---
Patient Problems: Active and Suspected Problems (Last Reviewed 08/03/19 @ 13:56 by Chanda Blair) Pneumonia due to COVID-19 virus (Acute) Acute respiratory failure with hypoxia (Acute) Elevated LFTs (Acute) Subjective: The patient was seen and examined at the bedside this morning. Events from the last 24 hours have been reviewed. The patient is currently afebrile, hemodynamically stable and maintaining appropriate oxygen saturations on Airvo with an FiO2 requirement of 85% and flow rate of 60 L/min. The patient remains on remdesivir, Decadron and therapeutic Lovenox. White count is elevated to 17,000. D-dimer has improved to 2.0. Creatinine has improved to 1.2. Liver function is stable. The patient did appear to have possible Haemophilus isolated from sputum culture. Therefore, antimicrobials were initiated this morning. Objective: The patient's most recent lab work, culture data and imaging studies have all been personally reviewed. Surface echocardiogram from 2016 revealed mild segmental systolic dysfunction with an ejection fraction of 50%. Coronavirus PCR was positive on July 06. Respiratory viral panel was negative. Blood cultures are pending. Respiratory culture revealed possible Haemophilus species. - Physical Exam Vitals/I&O's: Vital Signs Temp Pulse Resp BP Pulse Ox 97.9 F 81 18 120/67 92 07/08/20 03:11 07/08/20 04:00 07/08/20 03:11 07/08/20 03:11 07/08/20 03:11 Oxygen Flow Rate (L/min) 60 Oxygen Delivery Method Airvo Weight: 161 lb 9.581 oz Body Mass Index (BMI) 26.0 Intake and Output for Last 24 Hours 07/06/20 07/07/20 07/08/20 23:59 23:59 23:59 Intake Total 750 / 750 400 / 600 400 / 400 Output Total 400 / 400 1100 / 1400 500 / 500 Balance 350 / 350 -700 / -800 -100 / -100 General: Alert, Cooperative HEENT: Atraumatic, Normocephalic Oral: No Gingival or Mucosal Lesions/ Ulcerations Neck: Supple, No Nodes, Trachea Midline Lungs: Diminished, Tachypneic Cardiovascular: Normal S1, Normal S2, No murmurs, Tachycardic Abdomen: Bowel Sounds Present, Soft, Non Tender Extremities: No clubbing, No cyanosis, No edema Skin: No breakdown Musculoskeletal: No Tenderness to Palpation of Joints or Extremities Lymphatic: No Cervical, Supraclavicular, or Inguinal Adenopathy Neurological: Cranial nerves II-XII grossly intact, Neuro grossly intact Psych/Mental Status: Normal Affect Labs (Last 48 Hours) 07/06/20 07/06/20 07/06/20 10:40 10:40 10:40 WBC 12.7 H RBC 5.44 Hgb 16.0 Hct 50.0 MCV 91.9 MCH 29.4 MCHC 32.0 RDW Std Deviation 45.5 H RDW Coeff of Khris 13.5 Plt Count 400 MPV 10.5 Immature Gran % (Auto) 2.200 H Neut % (Auto) 81.3 H Lymph % (Auto) 8.7 L [place] % (Auto) 6.8 Eos % (Auto) 0.5 Baso % (Auto) 0.5 Absolute Neuts (auto) 10.4 H Absolute Lymphs (auto) 1.11 Nucleated RBC % 0 D-Dimer Quant (PE/DVT) 8.89 H* Sodium 142 Potassium 4.2 Chloride 108 H Carbon Dioxide 25.0 Anion Gap 9 BUN 39 H Creatinine 1.59 H Estim Creat Clear Calc 36.78 Est GFR (MDRD) Af Amer 55 L Est GFR (MDRD) Non-Af 46 L BUN/Creatinine Ratio 24.5 H Glucose 127 H Lactic Acid Calcium 9.5 Magnesium Ferritin Total Bilirubin 0.80 AST 365 H ALT 357 H Alkaline Phosphatase 141 H Lactate Dehydrogenase Troponin I < 0.015 C-React Prot Ext Range B-Natriuretic Peptide Total Protein 8.4 H Albumin 3.0 L Globulin 5.4 H Albumin/Globulin Ratio 0.6 L Procalcitonin COVID-19 (ISABELLA) 07/06/20 07/06/20 07/06/20 10:40 10:40 10:40 WBC RBC Hgb Hct MCV MCH MCHC RDW Std Deviation RDW Coeff of Khris Plt Count MPV Immature Gran % (Auto) Neut % (Auto) Lymph % (Auto) [place] % (Auto) Eos % (Auto) Baso % (Auto) Absolute Neuts (auto) Absolute Lymphs (auto) Nucleated RBC % D-Dimer Quant (PE/DVT) Sodium Potassium Chloride Carbon Dioxide Anion Gap BUN Creatinine Estim Creat Clear Calc Est GFR (MDRD) Af Amer Est GFR (MDRD) Non-Af BUN/Creatinine Ratio Glucose Lactic Acid 1.9 Calcium Magnesium Ferritin Total Bilirubin AST ALT Alkaline Phosphatase Lactate Dehydrogenase Troponin I C-React Prot Ext Range B-Natriuretic Peptide 15.3 Total Protein Albumin Globulin Albumin/Globulin Ratio Procalcitonin 0.18 H COVID-19 (ISABELLA) 07/06/20 07/06/20 07/07/20 10:40 11:25 06:05 WBC 8.8 RBC 4.67 Hgb 13.3 Hct 43.8 MCV 93.8 MCH 28.5 MCHC 30.4 L RDW Std Deviation 47.4 H RDW Coeff of Khris 13.6 Plt Count 313 MPV 10.6 Immature Gran % (Auto) Neut % (Auto) Lymph % (Auto) [place] % (Auto) Eos % (Auto) Baso % (Auto) Absolute Neuts (auto) Absolute Lymphs (auto) Nucleated RBC % D-Dimer Quant (PE/DVT) Sodium Potassium Chloride Carbon Dioxide Anion Gap BUN Creatinine Estim Creat Clear Calc Est GFR (MDRD) Af Amer Est GFR (MDRD) Non-Af BUN/Creatinine Ratio Glucose Lactic Acid Calcium Magnesium 2.8 H Ferritin 5187 H Total Bilirubin AST ALT Alkaline Phosphatase Lactate Dehydrogenase 999 H Troponin I C-React Prot Ext Range 175.00 H B-Natriuretic Peptide Total Protein Albumin Globulin Albumin/Globulin Ratio Procalcitonin COVID-19 (ISABELLA) Detected 07/07/20 07/08/20 07/08/20 06:05 05:42 05:42 WBC 16.9 H RBC 4.68 Hgb 13.4 Hct 42.6 MCV 91.0 MCH 28.6 MCHC 31.5 L RDW Std Deviation 45.9 H RDW Coeff of Khris 13.5 Plt Count 350 MPV 10.2 Immature Gran % (Auto) Neut % (Auto) Lymph % (Auto) [place] % (Auto) Eos % (Auto) Baso % (Auto) Absolute Neuts (auto) Absolute Lymphs (auto) Nucleated RBC % D-Dimer Quant (PE/DVT) Sodium 141 144 Potassium 4.5 4.1 Chloride 111 H 114 H Carbon Dioxide 24.0 22.0 Anion Gap 6 8 BUN 46 H 47 H Creatinine 1.34 H 1.21 Estim Creat Clear Calc 43.64 48.33 Est GFR (MDRD) Af Amer 67 75 Est GFR (MDRD) Non-Af 55 L 62 BUN/Creatinine Ratio 34.3 H 38.8 H Glucose 140 H 125 H Lactic Acid Calcium 9.1 8.3 L Magnesium Ferritin Total Bilirubin 0.50 0.50 AST 224 H 71 H ALT 324 H 229 H Alkaline Phosphatase 119 H 105 Lactate Dehydrogenase Troponin I C-React Prot Ext Range B-Natriuretic Peptide Total Protein 7.0 5.8 L Albumin 2.5 L 2.5 L Globulin 4.5 H 3.3 Albumin/Globulin Ratio 0.6 L 0.8 L Procalcitonin COVID-19 (ISABELLA) 07/08/20 05:42 WBC RBC Hgb Hct MCV MCH MCHC RDW Std Deviation RDW Coeff of Khris Plt Count MPV Immature Gran % (Auto) Neut % (Auto) Lymph % (Auto) [place] % (Auto) Eos % (Auto) Baso % (Auto) Absolute Neuts (auto) Absolute Lymphs (auto) Nucleated RBC % D-Dimer Quant (PE/DVT) 2.00 H* Sodium Potassium Chloride Carbon Dioxide Anion Gap BUN Creatinine Estim Creat Clear Calc Est GFR (MDRD) Af Amer Est GFR (MDRD) Non-Af BUN/Creatinine Ratio Glucose Lactic Acid Calcium Magnesium Ferritin Total Bilirubin AST ALT Alkaline Phosphatase Lactate Dehydrogenase Troponin I C-React Prot Ext Range B-Natriuretic Peptide Total Protein Albumin Globulin Albumin/Globulin Ratio Procalcitonin COVID-19 (ISAEBLLA) Microbiology 07/06/20 19:20 Interface Orders Gram Stain - Final 07/06/20 19:20 Interface Orders Respiratory Culture - Preliminary GNR Possible Haemophilus sp. 07/07/20 06:30 Urine, Clean Catch Legionella Antigen - Final 07/07/20 06:30 Urine, Clean Catch Streptococcus pneumoniae Antigen (M - Final 07/06/20 11:25 Mucosa - Nasopharyngeal Respiratory Panel (PCR) - Final 07/06/20 10:40 Mucosa - Nose SARS-CoV-2 Antigen (Rapid) - Final Clinical Impression(s) from Imaging Studies Chest X-Ray 07/06/20 11:10 IMPRESSION: Bilateral pulmonary infiltrates in the preferential peripheral distribution as described. Pneumonitis secondary to Covid should be ruled out. Electronically Signed: Dereje Diaz MD at 11:22 EST , Service support , Chest CTA 07/06/20 11:19 IMPRESSION: Multiple areas of groundglass appearance in the right upper and right lower lobes as well as in the lingular segment of left upper lobe and left lower lobe. This is suggestive of Covid pneumonitis. Chronic interstitial fibrosis with subpleural blebs. Electronically Signed: Dereje Diaz MD at 12:25 EST , Service support , Current Medications Albuterol Sulfate (Albuterol Sulfate 8 Gm Inhaler (60 Puffs)) 4 - 8 puff INHALATION Q4H PRN PRN PRN Reason: Dyspnea, wheezing Alprazolam (Alprazolam 0.5 Mg Tablet) 0.5 mg PO QHS PRN PRN Reason: SLEEP Last Admin: 07/06/20 20:14 Dose: 0.5 mg Documented by: Amiodarone HCl (Amiodarone 200 Mg Tablet) 100 mg PO DAILY [facility] Last Admin: 07/07/20 09:53 Dose: 100 mg Documented by: Amlodipine Besylate (Amlodipine 2.5 Mg Tablet) 2.5 mg PO DAILY [facility] Last Admin: 07/07/20 09:53 Dose: 2.5 mg Documented by: Aspirin (Aspirin E.C. 81 Mg Tablet) 81 mg PO DAILY [facility] Last Admin: 07/07/20 09:53 Dose: 81 mg Documented by: Carvedilol (Carvedilol 3.125 Mg Tablet) 3.125 mg PO BID [facility] Last Admin: 07/07/20 20:48 Dose: 3.125 mg Documented by: Cyanocobalamin (Cyanocobalamin 500 Mcg Tablet) 500 mcg PO DAILY [facility] Last Admin: 07/07/20 09:53 Dose: 500 mcg Documented by: Dexamethasone Sodium Phosphate (Dexamethasone 10 Mg/Ml Vial) 6 mg IV DAILY [facility] Stop: 07/16/20 10:01 Last Admin: 07/07/20 09:52 Dose: 6 mg Documented by: Enoxaparin Sodium (Enoxaparin 80 Mg/0.8 Ml Syringe) 70 mg SC BID [facility] Last Admin: 07/07/20 20:49 Dose: 70 mg Documented by: Ferrous Sulfate (Ferrous Sulfate 325 Mg Tablet) 325 mg PO DAILY [facility] Last Admin: 07/07/20 09:53 Dose: 325 mg Documented by: Finasteride (Finasteride 5 Mg Tablet) 5 mg PO DAILY [facility] Last Admin: 07/07/20 09:53 Dose: 5 mg Documented by: Guaifenesin (Guaifenesin 1,200 Mg Tablet) 1,200 mg PO BID [facility] Last Admin: 07/07/20 23:09 Dose: 1,200 mg Documented by: Hydralazine HCl (Hydralazine 20 Mg/Ml Vial) 10 mg IV Q4H PRN PRN PRN Reason: SBP > 160 Remdesivir 100 mg/ Sodium (Chloride) 250 mls @ 125 mls/hr IV DAILY [facility] Stop: 07/10/20 11:59 Last Infusion: 07/07/20 11:46 Dose: Infused Documented by: Sodium Chloride () 250 mls @ 15 mls/hr IV .[id number] PRN PRN Reason: Saline Flush Levothyroxine Sodium (Levothyroxine 50 Mcg Tablet) 50 mcg PO DAILY [facility] Last Admin: 07/07/20 09:53 Dose: 50 mcg Documented by: Lisinopril (Lisinopril 20 Mg Tablet) 20 mg PO BID [facility] Last Admin: 07/07/20 20:48 Dose: 20 mg Documented by: Loperamide HCl (Loperamide 2 Mg Capsule) 2 mg PO Q2H PRN PRN PRN Reason: loose stools, diarrhea Last Admin: 07/07/20 17:12 Dose: 2 mg Documented by: Melatonin (Melatonin 10 Mg Tablet) 20 mg PO HS [facility] Last Admin: 07/07/20 20:48 Dose: 20 mg Documented by: Oxycodone HCl (Oxycodone 5 Mg Tablet) 5 mg PO Q4H PRN PRN Reason: Pain Score 1-10 Last Admin: 07/06/20 20:13 Dose: 5 mg Documented by: Pantoprazole Sodium (Pantoprazole Sodium 40 Mg Tablet) 40 mg PO DAILY [facility] Last Admin: 07/07/20 09:53 Dose: 40 mg Documented by: Pravastatin Sodium (Pravastatin 20 Mg Tablet) 20 mg PO QHS [facility] Last Admin: 07/07/20 20:48 Dose: 20 mg Documented by: Sodium Chloride (0.9% Saline Lock 10 Ml Syringe) 10 - 40 ml IV UD PRN PRN Reason: SALINE FLUSH Last Admin: 07/06/20 14:27 Dose: 10 ml Documented by: Tamsulosin HCl (Tamsulosin Hcl 0.4 Mg Capsule) 0.4 mg PO DAILY [facility] Last Admin: 07/07/20 09:53 Dose: 0.4 mg Documented by: Medical Necessity - Tobacco Use Smoking Status: Former smoker Tobacco Use: Non-smoker Assessment/Plan All Active Problems (Last Reviewed 08/03/19 @ 13:56 by Chanda Blair) Pneumonia due to COVID-19 virus (Acute) Acute respiratory failure with hypoxia (Acute) Elevated LFTs (Acute) RECOMMENDATIONS: 1. Start antibiotics this morning given sputum culture results. 2. IV Lasix x1 to be given. 3. Continue to wean FiO2 to maintain oxygen saturations at or above 90%. 4. The patient is no longer responsive to heated high flow, start BiPAP therapy. 5. If the patient does require BiPAP, I would have a low threshold to transfer him to the medical intensive care unit. 6. Continue remdesivir to complete treatment course. Continue to monitor liver and renal function accordingly. 7. Continue Decadron to complete 10-day treatment course. 8. Continue therapeutic dose Lovenox. IMPRESSIONS: 1. Acute hypoxemic respiratory failure secondary to COVID-19 and Haemophilus pneumonia The patient's oxygen requirement has continued to increase over the course of his hospitalization. He has currently on appropriate therapy with scheduled remdesivir and Decadron. We will continue to monitor liver and renal function accordingly. The patient also appears to have Haemophilus in his sputum, for which antibiotics have been initiated. IV Lasix will be given today as well. He will be continued on heated high flow with a goal to maintain oxygen saturations at or above 90%. If he is no longer able to maintain saturations on heated high flow, BiPAP can be utilized. I would recommend that if the patient does begin to require BiPAP therapy, that he be transitioned to the medical intensive care unit. Plan to continue therapeutic dosing of Lovenox as well. 2. History of cardiomyopathy/mitral valve regurgitation/ventricular ectopy status post ICD placement/GERD/hypothyroidism/chronic pain syndrome Complicates care, management, recovery and prognosis. Continue home medications as indicated. This note was generated with 2nd Watchation software. It may contain incorrect words, spelling, and punctuation that were not noted in checking the note before signing. Inpatient E&M: 36774 Subs Hosp L3
--- NOTE | 2020-07-08 07:05 | PCM.PN.HOSP ---
Patient Problems: Active and Suspected Problems (Last Reviewed 08/03/19 @ 13:56 by Chanda Blair) Pneumonia due to COVID-19 virus (Acute) Acute respiratory failure with hypoxia (Acute) Elevated LFTs (Acute) Subjective: Patient overnight with significant oxygen requirement increase eventually transition to air Vo and BiPAP today. Initial intention for transition to the ICU however following lengthy discussion with patient and family patient transition to DNR CCA, no intubation status and remains on Covid unit with continued usage of air Vo. Patient notes feeling more fatigued, more short of breath with less energy. Patient did have diarrhea but improving with loperamide. Patient denies fevers, chills, nausea, emesis, abdominal pain, chest pain. Objective: Physical Examination: General: awake, alert, oriented x 3 and cooperative, seated upright in the medical surgical Covid bed, more ill and fatigued appearing the day prior, currently air Vo in place with current planned BiPAP transition. Skin: normal color, turgor, no icterus, cyanosis. HEENT: AT/NC, EOMI, PERRLA, MMM. Lungs: Significantly diminished breath sounds, greater bases, increased work of breathing and some accessory muscle usage, BiPAP being placed currently from air Vo, no rales, ronchi or wheezing. Heart: Mildly tachycardic with regular rhythm; no gallop, rub audible. Abdomen: soft, NTTP, ND, normalized BS. Extremities: no cyanosis, clubbing, or edema. Neurological: patient awake, alert, oriented as noted; cognitive function intact; pupils equally reactive to light and accomodation; cranial nerves II-XII grossly normal, moving all 4 extremities, no focal deficits, strength severely globally decreased secondary to acute presentation. Psychiatric: affect appears fatigued, ill-appearing, more sedate than day prior, no acute evidence of depressive or anxiety feelings. Vitals/I&O's: Vital Signs Temp Pulse Resp BP Pulse Ox 97.9 F 81 18 120/67 92 07/08/20 03:11 07/08/20 04:00 07/08/20 03:11 07/08/20 03:11 07/08/20 03:11 Oxygen Flow Rate (L/min) 60 Oxygen Delivery Method Airvo Weight: 161 lb 9.581 oz Body Mass Index (BMI) 26.0 Intake and Output for Last 24 Hours 07/06/20 07/07/20 07/08/20 23:59 23:59 23:59 Intake Total 750 / 750 400 / 600 400 / 400 Output Total 400 / 400 1100 / 1400 500 / 500 Balance 350 / 350 -700 / -800 -100 / -100 Microbiology Past 72 Hours 07/06/20 19:20 Interface Orders Gram Stain - Final 07/06/20 19:20 Interface Orders Respiratory Culture - Preliminary GNR Possible Haemophilus sp. 07/07/20 06:30 Urine, Clean Catch Legionella Antigen - Final 07/07/20 06:30 Urine, Clean Catch Streptococcus pneumoniae Antigen (M - Final 07/06/20 11:25 Mucosa - Nasopharyngeal Respiratory Panel (PCR) - Final 07/06/20 10:40 Mucosa - Nose SARS-CoV-2 Antigen (Rapid) - Final Laboratory Results 07/07/20 06:05: Sodium 141, Potassium 4.5, Chloride 111 H, Carbon Dioxide 24.0, Anion Gap 6, BUN 46 H, Creatinine 1.34 H, Estim Creat Clear Calc 43.64, Est GFR (MDRD) Af Amer 67, Est GFR (MDRD) Non-Af 55 L, BUN/Creatinine Ratio 34.3 H, Glucose 140 H, Calcium 9.1, Total Bilirubin 0.50, AST 224 H, ALT 324 H, Alkaline Phosphatase 119 H, Total Protein 7.0, Albumin 2.5 L, Globulin 4.5 H, Albumin/Globulin Ratio 0.6 L 07/08/20 05:42: WBC 16.9 H, RBC 4.68, Hgb 13.4, Hct 42.6, MCV 91.0, MCH 28.6, MCHC 31.5 L, RDW Std Deviation 45.9 H, RDW Coeff of Khris 13.5, Plt Count 350, MPV 10.2 07/08/20 05:42: Sodium 144, Potassium 4.1, Chloride 114 H, Carbon Dioxide 22.0, Anion Gap 8, BUN 47 H, Creatinine 1.21, Estim Creat Clear Calc 48.33, Est GFR (MDRD) Af Amer 75, Est GFR (MDRD) Non-Af 62, BUN/Creatinine Ratio 38.8 H, Glucose 125 H, Calcium 8.3 L, Total Bilirubin 0.50, AST 71 H, ALT 229 H, Alkaline Phosphatase 105, Total Protein 5.8 L, Albumin 2.5 L, Globulin 3.3, Albumin/Globulin Ratio 0.8 L 07/08/20 05:42: D-Dimer Quant (PE/DVT) 2.00 H* Current Medications Albuterol Sulfate (Albuterol Sulfate 8 Gm Inhaler (60 Puffs)) 4 - 8 puff INHALATION Q4H PRN PRN PRN Reason: Dyspnea, wheezing Alprazolam (Alprazolam 0.5 Mg Tablet) 0.5 mg PO QHS PRN PRN Reason: SLEEP Last Admin: 07/06/20 20:14 Dose: 0.5 mg Documented by: Amiodarone HCl (Amiodarone 200 Mg Tablet) 100 mg PO DAILY [facility] Last Admin: 07/07/20 09:53 Dose: 100 mg Documented by: Amlodipine Besylate (Amlodipine 2.5 Mg Tablet) 2.5 mg PO DAILY [facility] Last Admin: 07/07/20 09:53 Dose: 2.5 mg Documented by: Aspirin (Aspirin E.C. 81 Mg Tablet) 81 mg PO DAILY [facility] Last Admin: 07/07/20 09:53 Dose: 81 mg Documented by: Carvedilol (Carvedilol 3.125 Mg Tablet) 3.125 mg PO BID [facility] Last Admin: 07/07/20 20:48 Dose: 3.125 mg Documented by: Cyanocobalamin (Cyanocobalamin 500 Mcg Tablet) 500 mcg PO DAILY [facility] Last Admin: 07/07/20 09:53 Dose: 500 mcg Documented by: Dexamethasone Sodium Phosphate (Dexamethasone 10 Mg/Ml Vial) 6 mg IV DAILY [facility] Stop: 07/16/20 10:01 Last Admin: 07/07/20 09:52 Dose: 6 mg Documented by: Enoxaparin Sodium (Enoxaparin 80 Mg/0.8 Ml Syringe) 70 mg SC BID [facility] Last Admin: 07/07/20 20:49 Dose: 70 mg Documented by: Ferrous Sulfate (Ferrous Sulfate 325 Mg Tablet) 325 mg PO DAILY [facility] Last Admin: 07/07/20 09:53 Dose: 325 mg Documented by: Finasteride (Finasteride 5 Mg Tablet) 5 mg PO DAILY [facility] Last Admin: 07/07/20 09:53 Dose: 5 mg Documented by: Guaifenesin (Guaifenesin 1,200 Mg Tablet) 1,200 mg PO BID [facility] Last Admin: 07/07/20 23:09 Dose: 1,200 mg Documented by: Hydralazine HCl (Hydralazine 20 Mg/Ml Vial) 10 mg IV Q4H PRN PRN PRN Reason: SBP > 160 Remdesivir 100 mg/ Sodium (Chloride) 250 mls @ 125 mls/hr IV DAILY [facility] Stop: 07/10/20 11:59 Last Infusion: 07/07/20 11:46 Dose: Infused Documented by: Sodium Chloride () 250 mls @ 15 mls/hr IV .[id number] PRN PRN Reason: Saline Flush Levothyroxine Sodium (Levothyroxine 50 Mcg Tablet) 50 mcg PO DAILY [facility] Last Admin: 07/07/20 09:53 Dose: 50 mcg Documented by: Lisinopril (Lisinopril 20 Mg Tablet) 20 mg PO BID [facility] Last Admin: 07/07/20 20:48 Dose: 20 mg Documented by: Loperamide HCl (Loperamide 2 Mg Capsule) 2 mg PO Q2H PRN PRN PRN Reason: loose stools, diarrhea Last Admin: 07/07/20 17:12 Dose: 2 mg Documented by: Melatonin (Melatonin 10 Mg Tablet) 20 mg PO [facility] Last Admin: 07/07/20 20:48 Dose: 20 mg Documented by: Oxycodone HCl (Oxycodone 5 Mg Tablet) 5 mg PO Q4H PRN PRN Reason: Pain Score 1-10 Last Admin: 07/06/20 20:13 Dose: 5 mg Documented by: Pantoprazole Sodium (Pantoprazole Sodium 40 Mg Tablet) 40 mg PO DAILY [facility] Last Admin: 07/07/20 09:53 Dose: 40 mg Documented by: Pravastatin Sodium (Pravastatin 20 Mg Tablet) 20 mg PO QHS [facility] Last Admin: 07/07/20 20:48 Dose: 20 mg Documented by: Sodium Chloride (0.9% Saline Lock 10 Ml Syringe) 10 - 40 ml IV UD PRN PRN Reason: SALINE FLUSH Last Admin: 07/06/20 14:27 Dose: 10 ml Documented by: Tamsulosin HCl (Tamsulosin Hcl 0.4 Mg Capsule) 0.4 mg PO DAILY [facility] Last Admin: 07/07/20 09:53 Dose: 0.4 mg Documented by: STROKE Vital Signs/Narrative: Vital Signs Temp Pulse Resp BP Pulse Ox 07/08/20 04:00 81 07/08/20 03:11 97.9 F 87 18 120/67 92 Medical Necessity - Tobacco Use Smoking Status: Former smoker Tobacco Use: Non-smoker Assessment/Plan All Active Problems (Last Reviewed 08/03/19 @ 13:56 by Chanda Blair) Pneumonia due to COVID-19 virus (Acute) Acute respiratory failure with hypoxia (Acute) Elevated LFTs (Acute) The patient is a 75 y/o M w/ PMHx: Chronic anemia, HTN, HLD, Hypothyroidism, Valvular Heart Disease, Nonischemic Cardiomyopathy s/p AICD/pacemaker, Former Tobacco use, Anxiety, BPH, CKD stage III, GERD, ? VT/PAF, Chronic pain syndrome who presents to the [facility] ED on 07/06/20 with history of ~ 5 days of initially nausea, poor oral intake, fatigue, malaise, diarrhea, headaches primarily frontal/throbbing with no cough and dyspnea worsening over the last ~ 24 hours with fever per EMS upon their evaluation prompting ED presentation with noted initial evaluation with 81% on RA. 1. Acute Hypoxic Respiratory Failure secondary to Acute Bilateral Pneumonia secondary to Acute Viral Syndrome, COVID-19 complicated by underlying chronic interstitial fibrotic change and suspected underlying COPD given prolonged tobacco use history: Patient admitted to the Covid unit as telemetry status, ED evaluation with D-dimer 8.89 with CTPA as noted given notably elevated d-dimer with multiple areas of groundglass appearance in the right upper and right lower lobe as well as lingular segment of left upper lobe and left lower lobe suggestive of Covid pneumonitis with chronic interstitial fibrotic and subpleural blebs evident, continue to require high flow oxygen overnight but did not require BiPAP or air Vo, as needed albuterol, encourage head of bed and continue I-S aggressive intervention, current sputum culture with Haemophilus influenzae with initiation of Rocephin IV antibiotic therapy, negative respiratory panel, PCR Covid resulted positive as expected, urine antigens negative, ferritin 5187, LDH 999, troponin less than 0.015, CRP 175, BNP 15.3, procalcitonin 0.18, will continue to trend dimer, initially placed on chemoprophylaxis Lovenox 30 mg subcu twice daily however discussed with pulmonary critical care and 07/07/2020 despite no obvious evidence of pulmonary emboli transition to full anticoagulation to be cautious especially given ongoing significant oxygen requirements, continue supportive care including q 2 hour turning including prone given no prone bed availability and judicious hydration, closely monitor for worsening status for ARDS and multiorgan failure, pulmonary critical care and infectious disease following, continued on IV Decadron as well as IV remdesivir with close monitoring of patient's CMP. 07/08/2020 IV Lasix administration per critical care/pulmonary medicine, likely expect continued pulse dosing. 07/08/2020 worsened status with usage of air Vo and BiPAP with deferral of ICU transition with CODE STATUS changed to DNR CCA, no intubation status. 2. Elevated LFTs likely secondary to #1: Admission CMP with bilirubin 0.80, AST/ALT 365/357, alk phos 141--> 07/08/2020 CMP with total bilirubin 0.50, AST/ALT 71/229, alk phos 105, improving, will continue to closely trend especially given usage of IV remdesivir. 3. Nonischemic cardiomyopathy: Status post AICD/pacemaker, continue patient aspirin, Coreg, lisinopril, statin therapy, not on any diuretic, will closely monitor given acute presentation as noted. 10/11/2017 echocardiogram with normal LV size, mild concentric LVH, EF 60%, RV normal size, RV systolic function normal, moderately dilated LA, known calcified echodensity in the left atrium. 4. Questionable VT/cardiac arrhythmia/PAF: Patient currently on low-dose daily amiodarone, unclear if prior cardiac arrhythmia, will continue to closely monitor, will maintain also on Coreg, not chronically anticoagulated of note. 5. Hypertension: Continue home regimen including Coreg, lisinopril with hold parameters, PRN hydralazine. 6. Hyperlipidemia: Continue home statin regimen. 7. Chronic anemia, iron deficiency: Admission hemoglobin 16, will continue patient iron supplementation, continue to trend CBC. 8. Chronic Kidney Disease Stage III: Admission BUN/Cr 39/1.59, baseline renal function 1.3-1.7, 07/08/2020 CMP with BUN/Cr 47/1.21, continue to monitor. 9. Hypothyroidism: Continue home synthroid regimen. 10. GERD: Continue patient PPI. 11. BPH: We will continue patient home finasteride and Flomax regimen. 12. DVT prophylaxis: SCDs, Lovenox full anticoagulation. 13. CODE status: Does not have formal healthcare power of family law attorney nor living will set up. Did discuss upon admission both with he and his however at that time he notes he felt forced by his spouse to suggest full CODE STATUS. Given patient decline and initial plan for transition to the ICU patient adamantly declining now and specifically requesting DNR CCA, no intubation status. Given patient change and completely oriented status, again, discussed CODE status at length including difference between FULL code, DNR-CCA and DNR-CC status. Following discussions about the differences in these status, requested DNR CCA, no intubation status. Per patient amenability both his and his [id number] were contacted and patient's decision was discussed. Advanced Care Planning Face to Face Time: 20 minutes. Inpatient E&M: 34932 Subs Hosp L3 Procedures: 39123 Advncd Care Plan 30 Min
--- NOTE | 2020-07-08 07:30 | CPS ---
Increased Airvo from 60L 85% to 60L 91%. R.T. let NAHUM Haines know about this increase.
[2020-07-08] MEDS: Furosemide 40 MG/4 ML Vial IV (08:00)
[2020-07-08] MEDS: Amiodarone 200 MG Tablet 100 MG PO (09:41)
[2020-07-08] MEDS: Ferrous Sulfate 325 MG Tablet PO (09:42)
[2020-07-08] MEDS: dexAMETHasone 10 MG/ML Vial 6 MG IV (09:42)
[2020-07-08] MEDS: Carvedilol 3.125 MG TABLET PO ×2 (09:42→22:02)
[2020-07-08] MEDS: guaiFENesin 1,200 MG Tablet 1200 MG PO ×2 (09:43→22:02)
[2020-07-08] MEDS: Aspirin E.C. 81 MG Tablet PO (09:43)
[2020-07-08] MEDS: Enoxaparin 80 MG/0.8 ML Syringe 70 MG SC ×2 (09:43→22:02)
[2020-07-08] MEDS: Tamsulosin HCl 0.4 MG Capsule PO (09:43)
[2020-07-08] MEDS: Finasteride 5 MG Tablet PO (09:44)
[2020-07-08] MEDS: amLODIPine 2.5 MG Tablet PO (09:44)
[2020-07-08] MEDS: Levothyroxine 50 MCG Tablet PO (09:44)
[2020-07-08] MEDS: Cyanocobalamin 500 MCG Tablet PO (09:44)
[2020-07-08] MEDS: Lisinopril 20 MG Tablet PO ×2 (09:45→22:02)
[2020-07-08] MEDS: Pantoprazole Sodium 40 MG Tablet PO (09:46)
--- NOTE | 2020-07-08 11:20 | CPS ---
patient on airvo at [address] elizabeth aware and gave order to start patient on bipap. Patient placed on bipap at 12/6 rr 12 100%.
--- NOTE | 2020-07-08 14:03 | PCM.PN.ID ---
Patient Problems: Active and Suspected Problems (Last Reviewed 08/03/19 @ 13:56 by Chanda Blair) Pneumonia due to COVID-19 virus (Acute) Acute respiratory failure with hypoxia (Acute) Elevated LFTs (Acute) Subjective: Breathing better with Airvo. No fever. - Physical Exam Vitals/I&O's: Vital Signs Temp Pulse Resp BP Pulse Ox 98.3 F 82 24 H 122/69 H 91 07/08/20 09:00 07/08/20 12:40 07/08/20 12:40 07/08/20 09:00 07/08/20 12:40 Oxygen Flow Rate (L/min) 60 Oxygen Delivery Method Airvo Weight: 73.3 kg Body Mass Index (BMI) 26.0 Intake and Output for Last 24 Hours 07/06/20 07/07/20 07/08/20 23:59 23:59 23:59 Intake Total 750 / 750 400 / 600 540 / 540 Output Total 400 / 400 1100 / 1400 1290 / 1290 Balance 350 / 350 -700 / -800 -750 / -750 General: Alert, Cooperative Lungs: Diminished Cardiovascular: Regular rate, Regular Rhythm Abdomen: Soft, Non Tender, Non-Distended Skin: No rashes Microbiology Past 72 Hours 07/06/20 19:20 Interface Orders Gram Stain - Final 07/06/20 19:20 Interface Orders Respiratory Culture - Preliminary GNR Possible Haemophilus sp. 07/07/20 06:30 Urine, Clean Catch Legionella Antigen - Final 07/07/20 06:30 Urine, Clean Catch Streptococcus pneumoniae Antigen (M - Final 07/06/20 11:25 Mucosa - Nasopharyngeal Respiratory Panel (PCR) - Final 07/06/20 10:40 Mucosa - Nose SARS-CoV-2 Antigen (Rapid) - Final Laboratory Results 07/08/20 05:42: WBC 16.9 H, RBC 4.68, Hgb 13.4, Hct 42.6, MCV 91.0, MCH 28.6, MCHC 31.5 L, RDW Std Deviation 45.9 H, RDW Coeff of Khris 13.5, Plt Count 350, MPV 10.2 07/08/20 05:42: Sodium 144, Potassium 4.1, Chloride 114 H, Carbon Dioxide 22.0, Anion Gap 8, BUN 47 H, Creatinine 1.21, Estim Creat Clear Calc 48.33, Est GFR (MDRD) Af Amer 75, Est GFR (MDRD) Non-Af 62, BUN/Creatinine Ratio 38.8 H, Glucose 125 H, Calcium 8.3 L, Total Bilirubin 0.50, AST 71 H, ALT 229 H, Alkaline Phosphatase 105, Total Protein 5.8 L, Albumin 2.5 L, Globulin 3.3, Albumin/Globulin Ratio 0.8 L 07/08/20 05:42: D-Dimer Quant (PE/DVT) 2.00 H* Current Medications Albuterol Sulfate (Albuterol Sulfate 8 Gm Inhaler (60 Puffs)) 4 - 8 puff INHALATION Q4H PRN PRN PRN Reason: Dyspnea, wheezing Alprazolam (Alprazolam 0.5 Mg Tablet) 0.5 mg PO QHS PRN PRN Reason: SLEEP Last Admin: 07/06/20 20:14 Dose: 0.5 mg Documented by: Amiodarone HCl (Amiodarone 200 Mg Tablet) 100 mg PO DAILY [facility] Last Admin: 07/08/20 09:41 Dose: 100 mg Documented by: Amlodipine Besylate (Amlodipine 2.5 Mg Tablet) 2.5 mg PO DAILY [facility] Last Admin: 07/08/20 09:44 Dose: 2.5 mg Documented by: Aspirin (Aspirin E.C. 81 Mg Tablet) 81 mg PO DAILY [facility] Last Admin: 07/08/20 09:43 Dose: 81 mg Documented by: Carvedilol (Carvedilol 3.125 Mg Tablet) 3.125 mg PO BID [facility] Last Admin: 07/08/20 09:42 Dose: 3.125 mg Documented by: Cyanocobalamin (Cyanocobalamin 500 Mcg Tablet) 500 mcg PO DAILY [facility] Last Admin: 07/08/20 09:44 Dose: 500 mcg Documented by: Dexamethasone Sodium Phosphate (Dexamethasone 10 Mg/Ml Vial) 6 mg IV DAILY [facility] Stop: 07/16/20 10:01 Last Admin: 07/08/20 09:42 Dose: 6 mg Documented by: Enoxaparin Sodium (Enoxaparin 80 Mg/0.8 Ml Syringe) 70 mg SC BID [facility] Last Admin: 07/08/20 09:43 Dose: 70 mg Documented by: Ferrous Sulfate (Ferrous Sulfate 325 Mg Tablet) 325 mg PO DAILY [facility] Last Admin: 07/08/20 09:42 Dose: 325 mg Documented by: Finasteride (Finasteride 5 Mg Tablet) 5 mg PO DAILY [facility] Last Admin: 07/08/20 09:44 Dose: 5 mg Documented by: Guaifenesin (Guaifenesin 1,200 Mg Tablet) 1,200 mg PO BID [facility] Last Admin: 07/08/20 09:43 Dose: 1,200 mg Documented by: Hydralazine HCl (Hydralazine 20 Mg/Ml Vial) 10 mg IV Q4H PRN PRN PRN Reason: SBP > 160 Remdesivir 100 mg/ Sodium (Chloride) 250 mls @ 125 mls/hr IV DAILY [facility] Stop: 07/10/20 11:59 Last Admin: 07/08/20 10:30 Dose: 125 mls/hr Documented by: Sodium Chloride () 250 mls @ 15 mls/hr IV .[id number] PRN PRN Reason: Saline Flush Ceftriaxone Sodium 2 gm/ (Sodium Chloride) 50 mls @ 100 mls/hr IV Q24 [facility] Last Infusion: 07/08/20 10:30 Dose: Infused Documented by: Levothyroxine Sodium (Levothyroxine 50 Mcg Tablet) 50 mcg PO DAILY [facility] Last Admin: 07/08/20 09:44 Dose: 50 mcg Documented by: Lisinopril (Lisinopril 20 Mg Tablet) 20 mg PO BID [facility] Last Admin: 07/08/20 09:45 Dose: 20 mg Documented by: Loperamide HCl (Loperamide 2 Mg Capsule) 2 mg PO Q2H PRN PRN PRN Reason: loose stools, diarrhea Last Admin: 07/07/20 17:12 Dose: 2 mg Documented by: Melatonin (Melatonin 10 Mg Tablet) 20 mg PO [facility] Last Admin: 07/07/20 20:48 Dose: 20 mg Documented by: Oxycodone HCl (Oxycodone 5 Mg Tablet) 5 mg PO Q4H PRN PRN Reason: Pain Score 1-10 Last Admin: 07/06/20 20:13 Dose: 5 mg Documented by: Pantoprazole Sodium (Pantoprazole Sodium 40 Mg Tablet) 40 mg PO DAILY [facility] Last Admin: 07/08/20 09:46 Dose: 40 mg Documented by: Pravastatin Sodium (Pravastatin 20 Mg Tablet) 20 mg PO QHS [facility] Last Admin: 07/07/20 20:48 Dose: 20 mg Documented by: Sodium Chloride (0.9% Saline Lock 10 Ml Syringe) 10 - 40 ml IV UD PRN PRN Reason: SALINE FLUSH Last Admin: 07/06/20 14:27 Dose: 10 ml Documented by: Tamsulosin HCl (Tamsulosin Hcl 0.4 Mg Capsule) 0.4 mg PO DAILY [facility] Last Admin: 07/08/20 09:43 Dose: 0.4 mg Documented by: Medical Necessity - Tobacco Use Smoking Status: Former smoker Tobacco Use: Non-smoker Route of nutrition/ use of supplements: [] Nutritional Intake: [] IV Site: [] Maria Catheter: [] - Assessment/Plan Antibiotics: [] Assessment/Plan: [] Active and Suspected Problems (Last Reviewed 08/03/19 @ 13:56 by Chanda Blair) Pneumonia due to COVID-19 virus (Acute) Acute respiratory failure with hypoxia (Acute) Elevated LFTs (Acute) covid with hypoxia and transaminitis - sx started around 2/5. Recommended quarantine and be tested. Recommend 10 days of po dex and started remdesivir, will monitor ALT (improved today). D-dimer was 8.9, CT neg for PE, on lovenox 30mg bid. Worsened O2, pulm consulted. On airvo today. Will follow
[2020-07-08] MEDS: 0.9% Saline Lock 10 ML Syringe IV (15:25)
--- NOTE | 2020-07-08 16:17 | NURSING ---
spo2 Drops to 73% on AIRVO when pt oob to [facility].
[2020-07-08] MEDS: MELATONIN 10 MG TABLET 20 MG PO (22:02)
[2020-07-08] MEDS: Pravastatin 20 MG Tablet PO (22:02)
[2020-07-09] VITALS (11 sets, daily range): BP systolic 102–122; BP diastolic 59–60; PULSE 70–88; RESP 17–26; TEMP 36.6–36.8; O2SAT 91–96
[2020-07-09 06:08] LABS: Hematocrit 40.4 % (40-54); Hemoglobin 12.6 g/dL (13.0-16.5); Mean Corp Hgb Conc 31.2 g/dL (32-36); Mean Corpuscular Hgb 28.6 pg (27.0-32.0); Mean Corpuscular Volume 91.6 fL (80-94); Mean Platelet Vol. 10.7 fl (6.2-12.0); Platelet Count 290 K/mm3 (150-450); RBC Distribution Width CV 13.5 % (11.6-14.6); RBC Distribution Width SD 46.2 fl (35.1-43.9); Red Blood Count 4.41 M/mm3 (4.6-6.2); White Blood Count 10.4 K/mm3 (4.4-11.0)
--- NOTE | 2020-07-09 06:23 | PCM.PN.PUL ---
Patient Problems: Active and Suspected Problems (Last Reviewed 08/03/19 @ 13:56 by Chanda Blair) Pneumonia due to COVID-19 virus (Acute) Acute respiratory failure with hypoxia (Acute) Elevated LFTs (Acute) Subjective: The patient was seen and examined at the bedside this morning. Events from the last 24 hours have been reviewed. The patient is currently afebrile, hemodynamically stable and maintaining appropriate oxygen saturations on Airvo heated high flow with an FiO2 requirement of 93% and flow rate of 60 L/min. The patient is essentially documented to be net even for the hospital admission. The patient remains on remdesivir, Decadron, therapeutic Lovenox and antimicrobials. Despite his high FiO2 requirement, the patient does report feeling less short of breath than previous. Objective: The patient's most recent lab work, culture data and imaging studies have all been personally reviewed. Surface echocardiogram from 2016 revealed mild segmental systolic dysfunction with an ejection fraction of 50%. Coronavirus PCR was positive on July 06. Respiratory viral panel was negative. Blood cultures are pending. Respiratory culture revealed possible Haemophilus species. - Physical Exam Vitals/I&O's: Vital Signs Temp Pulse Resp BP Pulse Ox 98 F 83 20 H 110/60 92 07/09/20 02:00 07/09/20 05:30 07/09/20 05:30 07/09/20 02:00 07/09/20 05:30 Oxygen Flow Rate (L/min) 60 Oxygen Delivery Method Airvo Weight: 161 lb 9.581 oz Body Mass Index (BMI) 26.0 Intake and Output for Last 24 Hours 07/07/20 07/08/20 07/09/20 23:59 23:59 23:59 Intake Total 400 / 600 1540 / 1540 300 / 300 Output Total 1100 / 1400 1290 / 1290 350 / 350 Balance -700 / -800 250 / 250 -50 / -50 General: Alert, Cooperative, No apparent distress HEENT: Atraumatic, PERRLA, Normocephalic Oral: Moist Mucosa, No Gingival or Mucosal Lesions/ Ulcerations Neck: Supple, No Nodes, Trachea Midline Lungs: No rhonchi, No wheeze, No rales, Diminished Cardiovascular: Regular rate, Regular Rhythm Abdomen: Bowel Sounds Present, Soft, Non Tender Extremities: No clubbing, No cyanosis, No edema Skin: No breakdown Musculoskeletal: No Tenderness to Palpation of Joints or Extremities, No Muscle Wasting Lymphatic: No Cervical, Supraclavicular, or Inguinal Adenopathy Neurological: Cranial nerves II-XII grossly intact, Neuro grossly intact Psych/Mental Status: Normal Affect, Appropriate Labs (Last 48 Hours) 07/07/20 07/07/20 07/08/20 06:05 06:05 05:42 WBC 8.8 16.9 H RBC 4.67 4.68 Hgb 13.3 13.4 Hct 43.8 42.6 MCV 93.8 91.0 MCH 28.5 28.6 MCHC 30.4 L 31.5 L RDW Std Deviation 47.4 H 45.9 H RDW Coeff of Khris 13.6 13.5 Plt Count 313 350 MPV 10.6 10.2 D-Dimer Quant (PE/DVT) Sodium 141 Potassium 4.5 Chloride 111 H Carbon Dioxide 24.0 Anion Gap 6 BUN 46 H Creatinine 1.34 H Estim Creat Clear Calc 43.64 Est GFR (MDRD) Af Amer 67 Est GFR (MDRD) Non-Af 55 L BUN/Creatinine Ratio 34.3 H Glucose 140 H Calcium 9.1 Total Bilirubin 0.50 AST 224 H ALT 324 H Alkaline Phosphatase 119 H Total Protein 7.0 Albumin 2.5 L Globulin 4.5 H Albumin/Globulin Ratio 0.6 L 07/08/20 07/08/20 07/09/20 05:42 05:42 05:30 WBC 10.4 RBC 4.41 L Hgb 12.6 L Hct 40.4 MCV 91.6 MCH 28.6 MCHC 31.2 L RDW Std Deviation 46.2 H RDW Coeff of Khris 13.5 Plt Count 290 MPV 10.7 D-Dimer Quant (PE/DVT) 2.00 H* Sodium 144 Potassium 4.1 Chloride 114 H Carbon Dioxide 22.0 Anion Gap 8 BUN 47 H Creatinine 1.21 Estim Creat Clear Calc 48.33 Est GFR (MDRD) Af Amer 75 Est GFR (MDRD) Non-Af 62 BUN/Creatinine Ratio 38.8 H Glucose 125 H Calcium 8.3 L Total Bilirubin 0.50 AST 71 H ALT 229 H Alkaline Phosphatase 105 Total Protein 5.8 L Albumin 2.5 L Globulin 3.3 Albumin/Globulin Ratio 0.8 L 07/09/20 05:30 WBC RBC Hgb Hct MCV MCH MCHC RDW Std Deviation RDW Coeff of Khris Plt Count MPV D-Dimer Quant (PE/DVT) Sodium Pending Potassium Pending Chloride Pending Carbon Dioxide Pending Anion Gap Pending BUN Pending Creatinine Pending Estim Creat Clear Calc Est GFR (MDRD) Af Amer Pending Est GFR (MDRD) Non-Af Pending BUN/Creatinine Ratio Pending Glucose Pending Calcium Pending Total Bilirubin Pending AST Pending ALT Pending Alkaline Phosphatase Pending Total Protein Pending Albumin Pending Globulin Albumin/Globulin Ratio Microbiology 07/06/20 19:20 Interface Orders Gram Stain - Final 07/06/20 19:20 Interface Orders Respiratory Culture - Final Haemophilus influenzae 07/07/20 06:30 Urine, Clean Catch Legionella Antigen - Final 07/07/20 06:30 Urine, Clean Catch Streptococcus pneumoniae Antigen (M - Final Clinical Impression(s) from Imaging Studies Chest X-Ray 07/06/20 11:10 IMPRESSION: Bilateral pulmonary infiltrates in the preferential peripheral distribution as described. Pneumonitis secondary to Covid should be ruled out. Electronically Signed: Dereje Diaz MD at 11:22 EST , Service support , Chest CTA 07/06/20 11:19 IMPRESSION: Multiple areas of groundglass appearance in the right upper and right lower lobes as well as in the lingular segment of left upper lobe and left lower lobe. This is suggestive of Covid pneumonitis. Chronic interstitial fibrosis with subpleural blebs. Electronically Signed: Dereje Diaz MD at 12:25 EST , Service support , Current Medications Albuterol Sulfate (Albuterol Sulfate 8 Gm Inhaler (60 Puffs)) 4 - 8 puff INHALATION Q4H PRN PRN PRN Reason: Dyspnea, wheezing Alprazolam (Alprazolam 0.5 Mg Tablet) 0.5 mg PO QHS PRN PRN Reason: SLEEP Last Admin: 07/06/20 20:14 Dose: 0.5 mg Documented by: Amiodarone HCl (Amiodarone 200 Mg Tablet) 100 mg PO DAILY [facility] Last Admin: 07/08/20 09:41 Dose: 100 mg Documented by: Amlodipine Besylate (Amlodipine 2.5 Mg Tablet) 2.5 mg PO DAILY [facility] Last Admin: 07/08/20 09:44 Dose: 2.5 mg Documented by: Aspirin (Aspirin E.C. 81 Mg Tablet) 81 mg PO DAILY [facility] Last Admin: 07/08/20 09:43 Dose: 81 mg Documented by: Carvedilol (Carvedilol 3.125 Mg Tablet) 3.125 mg PO BID [facility] Last Admin: 07/08/20 22:02 Dose: 3.125 mg Documented by: Cyanocobalamin (Cyanocobalamin 500 Mcg Tablet) 500 mcg PO DAILY [facility] Last Admin: 07/08/20 09:44 Dose: 500 mcg Documented by: Dexamethasone Sodium Phosphate (Dexamethasone 10 Mg/Ml Vial) 6 mg IV DAILY [facility] Stop: 07/16/20 10:01 Last Admin: 07/08/20 09:42 Dose: 6 mg Documented by: Enoxaparin Sodium (Enoxaparin 80 Mg/0.8 Ml Syringe) 70 mg SC BID [facility] Last Admin: 07/08/20 22:02 Dose: 70 mg Documented by: Ferrous Sulfate (Ferrous Sulfate 325 Mg Tablet) 325 mg PO DAILY [facility] Last Admin: 07/08/20 09:42 Dose: 325 mg Documented by: Finasteride (Finasteride 5 Mg Tablet) 5 mg PO DAILY [facility] Last Admin: 07/08/20 09:44 Dose: 5 mg Documented by: Guaifenesin (Guaifenesin 1,200 Mg Tablet) 1,200 mg PO BID [facility] Last Admin: 07/08/20 22:02 Dose: 1,200 mg Documented by: Hydralazine HCl (Hydralazine 20 Mg/Ml Vial) 10 mg IV Q4H PRN PRN PRN Reason: SBP > 160 Remdesivir 100 mg/ Sodium (Chloride) 250 mls @ 125 mls/hr IV DAILY [facility] Stop: 07/10/20 11:59 Last Infusion: 07/08/20 15:00 Dose: Infused Documented by: Sodium Chloride () 250 mls @ 15 mls/hr IV .[id number] PRN PRN Reason: Saline Flush Ceftriaxone Sodium 2 gm/ (Sodium Chloride) 50 mls @ 100 mls/hr IV Q24 [facility] Last Infusion: 07/08/20 10:30 Dose: Infused Documented by: Levothyroxine Sodium (Levothyroxine 50 Mcg Tablet) 50 mcg PO DAILY [facility] Last Admin: 07/08/20 09:44 Dose: 50 mcg Documented by: Lisinopril (Lisinopril 20 Mg Tablet) 20 mg PO BID [facility] Last Admin: 07/08/20 22:02 Dose: 20 mg Documented by: Loperamide HCl (Loperamide 2 Mg Capsule) 2 mg PO Q2H PRN PRN PRN Reason: loose stools, diarrhea Last Admin: 07/07/20 17:12 Dose: 2 mg Documented by: Melatonin (Melatonin 10 Mg Tablet) 20 mg PO HS [facility] Last Admin: 07/08/20 22:02 Dose: 20 mg Documented by: Oxycodone HCl (Oxycodone 5 Mg Tablet) 5 mg PO Q4H PRN PRN Reason: Pain Score 1-10 Last Admin: 07/06/20 20:13 Dose: 5 mg Documented by: Pantoprazole Sodium (Pantoprazole Sodium 40 Mg Tablet) 40 mg PO DAILY [facility] Last Admin: 07/08/20 09:46 Dose: 40 mg Documented by: Pravastatin Sodium (Pravastatin 20 Mg Tablet) 20 mg PO QHS [facility] Last Admin: 07/08/20 22:02 Dose: 20 mg Documented by: Sodium Chloride (0.9% Saline Lock 10 Ml Syringe) 10 - 40 ml IV UD PRN PRN Reason: SALINE FLUSH Last Admin: 07/08/20 15:25 Dose: 10 ml Documented by: Tamsulosin HCl (Tamsulosin Hcl 0.4 Mg Capsule) 0.4 mg PO DAILY [facility] Last Admin: 07/08/20 09:43 Dose: 0.4 mg Documented by: Medical Necessity - Tobacco Use Smoking Status: Former smoker Tobacco Use: Non-smoker Assessment/Plan All Active Problems (Last Reviewed 08/03/19 @ 13:56 by Chanda Blair) Pneumonia due to COVID-19 virus (Acute) Acute respiratory failure with hypoxia (Acute) Elevated LFTs (Acute) RECOMMENDATIONS: 1. Continue antimicrobials. 2. Continue to wean FiO2 to maintain oxygen saturations at or above 90%. 3. Continue remdesivir to complete treatment course. Continue to monitor liver and renal function accordingly. 4. Continue Decadron to complete 10-day treatment course. 5. Continue therapeutic dose Lovenox. 6. Encourage incentive spirometer use and mobilize patient as tolerated. IMPRESSIONS: 1. Acute hypoxemic respiratory failure secondary to COVID-19 and Haemophilus pneumonia The patient's oxygen requirement has continued to increase over the course of his hospitalization. He is currently on appropriate therapy with scheduled remdesivir and Decadron. We will continue to monitor liver and renal function accordingly. The patient also appears to have Haemophilus in his sputum, for which antibiotics have been initiated. He will be continued on heated high flow with a goal to maintain oxygen saturations at or above 90%. If he is no longer able to maintain saturations on heated high flow, BiPAP can be utilized. Plan to continue therapeutic dosing of Lovenox as well. 2. History of cardiomyopathy/mitral valve regurgitation/ventricular ectopy status post ICD placement/GERD/hypothyroidism/chronic pain syndrome Complicates care, management, recovery and prognosis. Continue home medications as indicated. This note was generated with [employer] dictation software. It may contain incorrect words, spelling, and punctuation that were not noted in checking the note before signing. Inpatient E&M: [id number] [facility] L3
[2020-07-09 06:44] LABS: ALB/GLOB Ratio 0.6 RATIO (0.9-2.4); AST(SGOT) 44 U/L (15-37); Alanine Aminotransfer ALT/SGPT 148 U/L (16-61); Albumin, Serum 2.3 g/dL (3.2-5.0); Alkaline Phosphatase 101 U/L (45-117); Anion Gap 6 (5-15); BUN 46 mg/dL (7-18); BUN/Creat Ratio 35.9 RATIO (10-20); Calcium,Total 8.4 mg/dL (8.5-10.1); Chloride 112 mmol/L (98-107); Creatinine, Serum 1.28 mg/dL (0.70-1.30); EST Glomerular Filtration Rate 58 mL/min (>60); Est Glom Filt Rate - Afr Amer 71 mL/min (>60); Estimated Creatinine Clearance 45.69 ml/min; Globulin 3.6 g/dL (2.2-4.2); Glucose 121 mg/dL (74-106); Potassium 4.1 mmol/L (3.5-5.1); Protein, Total 5.9 g/dL (6.4-8.2); Sodium Level 143 mmol/L (136-145)
--- NOTE | 2020-07-09 06:51 | PN_ITS ---
Patient Problems: Active and Suspected Problems (Last Reviewed 08/03/19 @ 13:56 by Chanda Blair) Pneumonia due to COVID-19 virus (Acute) Acute respiratory failure with hypoxia (Acute) Elevated LFTs (Acute) Subjective: Patient overnight with continued refusal of BiPAP, maxed out on air Vo and noted to be taking significantly more time to recover with any activity including pill intake. Patient does feel worse he notes, more fatigued, more short of breath but still insistent that he like to continue his DNR CCA, no intubation status. He denies any further diarrhea. He notes several times that he has had issues for years since the onset of his cardiac disease. Patient without evidence of fevers, chills, nausea, emesis, abdominal pain, chest pain. Objective: Physical Examination: General: awake, alert, oriented x 3 and cooperative, seated upright in the medical surgical Covid bed, currently on air Vo, recent episode of desaturation with even just taking pills. Skin: normal color, turgor, no icterus, cyanosis. HEENT: AT/NC, EOMI, PERRLA, mildly dry MM. Lungs: Diminished, increased effort, some accessory muscle usage, air Vo in place currently, desaturating while taking pills visibly, no rales, ronchi or wheezing. Heart: Regular rate with regular rhythm; no gallop, rub audible. Abdomen: soft, NTTP, ND, normalized BS. Extremities: no cyanosis, clubbing, or edema. Neurological: patient awake, alert, oriented as noted; cognitive function intact; pupils equally reactive to light and accomodation; cranial nerves II-XII grossly normal, moving all 4 extremities, no focal deficits, strength severely globally decreased secondary to acute presentation. Psychiatric: affect appears fatigued, no acute evidence of depressive or anxiety feelings. Vitals/I&O's: Vital Signs Temp Pulse Resp BP Pulse Ox 98 F 83 20 H 110/60 92 07/09/20 02:00 07/09/20 05:30 07/09/20 05:30 07/09/20 02:00 07/09/20 05:30 Oxygen Flow Rate (L/min) 60 Oxygen Delivery Method Airvo Weight: 161 lb 9.581 oz Body Mass Index (BMI) 26.0 Intake and Output for Last 24 Hours 07/07/20 07/08/20 07/09/20 23:59 23:59 23:59 Intake Total 400 / 600 1540 / 1540 300 / 300 Output Total 1100 / 1400 1290 / 1290 350 / 350 Balance -700 / -800 250 / 250 -50 / -50 Microbiology Past 72 Hours 07/06/20 19:20 Interface Orders Gram Stain - Final 07/06/20 19:20 Interface Orders Respiratory Culture - Final Haemophilus influenzae 07/07/20 06:30 Urine, Clean Catch Legionella Antigen - Final 07/07/20 06:30 Urine, Clean Catch Streptococcus pneumoniae Antigen (M - Final 07/06/20 11:25 Mucosa - Nasopharyngeal Respiratory Panel (PCR) - Final 07/06/20 10:40 Mucosa - Nose SARS-CoV-2 Antigen (Rapid) - Final Laboratory Results 07/09/20 05:30: WBC 10.4, RBC 4.41 L, Hgb 12.6 L, Hct 40.4, MCV 91.6, MCH 28.6, MCHC 31.2 L, RDW Std Deviation 46.2 H, RDW Coeff of Khris 13.5, Plt Count 290, MPV 10.7 07/09/20 05:30: Sodium 143, Potassium 4.1, Chloride 112 H, Carbon Dioxide 25.0, Anion Gap 6, BUN 46 H, Creatinine 1.28, Estim Creat Clear Calc 45.69, Est GFR (MDRD) Af Amer 71, Est GFR (MDRD) Non-Af 58 L, BUN/Creatinine Ratio 35.9 H, Glucose 121 H, Calcium 8.4 L, Total Bilirubin 0.40, AST 44 H, ALT 148 H, Alkaline Phosphatase 101, Total Protein 5.9 L, Albumin 2.3 L, Globulin 3.6, Albumin/Globulin Ratio 0.6 L Current Medications Albuterol Sulfate (Albuterol Sulfate 8 Gm Inhaler (60 Puffs)) 4 - 8 puff INHALATION Q4H PRN PRN PRN Reason: Dyspnea, wheezing Alprazolam (Alprazolam 0.5 Mg Tablet) 0.5 mg PO QHS PRN PRN Reason: SLEEP Last Admin: 07/06/20 20:14 Dose: 0.5 mg Documented by: Amiodarone HCl (Amiodarone 200 Mg Tablet) 100 mg PO DAILY [facility] Last Admin: 07/08/20 09:41 Dose: 100 mg Documented by: Amlodipine Besylate (Amlodipine 2.5 Mg Tablet) 2.5 mg PO DAILY [facility] Last Admin: 07/08/20 09:44 Dose: 2.5 mg Documented by: Aspirin (Aspirin E.C. 81 Mg Tablet) 81 mg PO DAILY [facility] Last Admin: 07/08/20 09:43 Dose: 81 mg Documented by: Carvedilol (Carvedilol 3.125 Mg Tablet) 3.125 mg PO BID [facility] Last Admin: 07/08/20 22:02 Dose: 3.125 mg Documented by: Cyanocobalamin (Cyanocobalamin 500 Mcg Tablet) 500 mcg PO DAILY [facility] Last Admin: 07/08/20 09:44 Dose: 500 mcg Documented by: Dexamethasone Sodium Phosphate (Dexamethasone 10 Mg/Ml Vial) 6 mg IV DAILY [facility] Stop: 07/16/20 10:01 Last Admin: 07/08/20 09:42 Dose: 6 mg Documented by: Enoxaparin Sodium (Enoxaparin 80 Mg/0.8 Ml Syringe) 70 mg SC BID [facility] Last Admin: 07/08/20 22:02 Dose: 70 mg Documented by: Ferrous Sulfate (Ferrous Sulfate 325 Mg Tablet) 325 mg PO DAILY [facility] Last Admin: 07/08/20 09:42 Dose: 325 mg Documented by: Finasteride (Finasteride 5 Mg Tablet) 5 mg PO DAILY [facility] Last Admin: 07/08/20 09:44 Dose: 5 mg Documented by: Guaifenesin (Guaifenesin 1,200 Mg Tablet) 1,200 mg PO BID [facility] Last Admin: 07/08/20 22:02 Dose: 1,200 mg Documented by: Hydralazine HCl (Hydralazine 20 Mg/Ml Vial) 10 mg IV Q4H PRN PRN PRN Reason: SBP > 160 Remdesivir 100 mg/ Sodium (Chloride) 250 mls @ 125 mls/hr IV DAILY [facility] Stop: 07/10/20 11:59 Last Infusion: 07/08/20 15:00 Dose: Infused Documented by: Sodium Chloride () 250 mls @ 15 mls/hr IV .[id number] PRN PRN Reason: Saline Flush Ceftriaxone Sodium 2 gm/ (Sodium Chloride) 50 mls @ 100 mls/hr IV Q24 [facility] Last Infusion: 07/08/20 10:30 Dose: Infused Documented by: Levothyroxine Sodium (Levothyroxine 50 Mcg Tablet) 50 mcg PO DAILY [facility] Last Admin: 07/08/20 09:44 Dose: 50 mcg Documented by: Lisinopril (Lisinopril 20 Mg Tablet) 20 mg PO BID [facility] Last Admin: 07/08/20 22:02 Dose: 20 mg Documented by: Loperamide HCl (Loperamide 2 Mg Capsule) 2 mg PO Q2H PRN PRN PRN Reason: loose stools, diarrhea Last Admin: 07/07/20 17:12 Dose: 2 mg Documented by: Melatonin (Melatonin 10 Mg Tablet) 20 mg PO HS [facility] Last Admin: 07/08/20 22:02 Dose: 20 mg Documented by: Oxycodone HCl (Oxycodone 5 Mg Tablet) 5 mg PO Q4H PRN PRN Reason: Pain Score 1-10 Last Admin: 07/06/20 20:13 Dose: 5 mg Documented by: Pantoprazole Sodium (Pantoprazole Sodium 40 Mg Tablet) 40 mg PO DAILY [facility] Last Admin: 07/08/20 09:46 Dose: 40 mg Documented by: Pravastatin Sodium (Pravastatin 20 Mg Tablet) 20 mg PO QHS [facility] Last Admin: 07/08/20 22:02 Dose: 20 mg Documented by: Sodium Chloride (0.9% Saline Lock 10 Ml Syringe) 10 - 40 ml IV UD PRN PRN Reason: SALINE FLUSH Last Admin: 07/08/20 15:25 Dose: 10 ml Documented by: Tamsulosin HCl (Tamsulosin Hcl 0.4 Mg Capsule) 0.4 mg PO DAILY [facility] Last Admin: 07/08/20 09:43 Dose: 0.4 mg Documented by: STROKE Vital Signs/Narrative: Vital Signs Pulse Resp Pulse Ox 07/09/20 05:30 83 20 H 92 Medical Necessity - Tobacco Use Smoking Status: Former smoker Tobacco Use: Non-smoker Assessment/Plan All Active Problems (Last Reviewed 08/03/19 @ 13:56 by Chanda Blair) Pneumonia due to COVID-19 virus (Acute) Acute respiratory failure with hypoxia (Acute) Elevated LFTs (Acute) The patient is a 75 y/o M w/ PMHx: Chronic anemia, HTN, HLD, Hypothyroidism, Valvular Heart Disease, Nonischemic Cardiomyopathy s/p AICD/pacemaker, Former Tobacco use, Anxiety, BPH, CKD stage III, GERD, ? VT/PAF, Chronic pain syndrome who presents to the [facility] ED on 07/06/20 with history of ~ 5 days of initially nausea, poor oral intake, fatigue, malaise, diarrhea, headaches primarily frontal/throbbing with no cough and dyspnea worsening over the last ~ 24 hours with fever per EMS upon their evaluation prompting ED presentation with noted initial evaluation with 81% on RA. 1. Acute Hypoxic Respiratory Failure secondary to Acute Bilateral Pneumonia secondary to Acute Viral Syndrome, COVID-19 complicated by underlying chronic interstitial fibrotic change and suspected underlying COPD given prolonged tobacco use history: Patient admitted to the Covid unit as telemetry status, ED evaluation with D-dimer 8.89 with CTPA as noted given notably elevated d-dimer with multiple areas of groundglass appearance in the right upper and right lower lobe as well as lingular segment of left upper lobe and left lower lobe suggestive of Covid pneumonitis with chronic interstitial fibrotic and subpleural blebs evident, continue to require high flow oxygen overnight but did not require BiPAP or air Vo, as needed albuterol, encourage head of bed and continue I-S aggressive intervention, current sputum culture with Haemophilus influenzae with initiation of Rocephin IV antibiotic therapy, negative respiratory panel, PCR Covid resulted positive as expected, urine antigens negative, ferritin 5187, LDH 999, troponin less than 0.015, CRP 175, BNP 15.3, procalcitonin 0.18, will continue to trend dimer, initially placed on chemoprophylaxis Lovenox 30 mg subcu twice daily however discussed with pulmonary critical care and 07/07/2020 despite no obvious evidence of pulmonary emboli transition to full anticoagulation to be cautious especially given ongoing significant oxygen requirements, continue supportive care including q 2 hour turning including prone given no prone bed availability and judicious hydration, closely monitor for worsening status for ARDS and multiorgan failure, pulmonary critical care and infectious disease following, continued on IV Decadron as well as IV remdesivir with close monitoring of patient's CMP. 07/08/2020 IV Lasix administration initiated per critical care/pulmonary medicine. 07/08/2020 worsened status with usage of air Vo and BiPAP with deferral of ICU transition with transition to DNR CCA, no intubation status. 07/08/2019 122/13/21 continued increased oxygen requirements, maxed on air Vo, refusal of any BiPAP usage. 2. Elevated LFTs likely secondary to #1: Admission CMP with bilirubin 0.80, AST/ALT 365/357, alk phos 141--> 07/09/2020 CMP with total bilirubin 0.40, AST/ALT 44/148, alk phos 101, continues to improve, continue to trend especially given IV remdesivir usage. 3. Nonischemic cardiomyopathy: Status post AICD/pacemaker, continue patient aspirin, Coreg, lisinopril, statin therapy, not on any diuretic outpatient but being post dose with IV Lasix as noted #1, will closely monitor given acute presentation as noted. 10/11/2017 echocardiogram with normal LV size, mild concentric LVH, EF 60%, RV normal size, RV systolic function normal, moderately dilated LA, known calcified echodensity in the left atrium. 4. Questionable VT/cardiac arrhythmia/PAF: Patient currently on low-dose daily amiodarone, unclear if prior cardiac arrhythmia, will continue to closely monitor, will maintain also on Coreg, not chronically anticoagulated of note. 5. Hypertension: Continue home regimen including Coreg, lisinopril with hold parameters, PRN hydralazine. 6. Hyperlipidemia: Continue home statin regimen. 7. Chronic anemia, iron deficiency: Admission hemoglobin 16, will continue patient iron supplementation, continue to trend CBC. 8. Chronic Kidney Disease Stage III: Admission BUN/Cr 39/1.59, baseline renal function 1.3-1.7, 07/09/2020 CMP with BUN/Cr 46/1.28, continue to monitor. 9. Hypothyroidism: Continue home synthroid regimen. 10. GERD: Continue patient PPI. 11. BPH: We will continue patient home finasteride and Flomax regimen. 12. DVT prophylaxis: SCDs, Lovenox full anticoagulation. 13. CODE status: DNR-CCA, no intubation status. Refusing BIPAP. Understands risk of possible demise without usage for BIPAP. Inpatient E&M: [id number] [facility] L3
--- NOTE | 2020-07-09 07:35 | NURSING ---
per cps, airvo bothering pt. pt placed on 15 l. drops to 86 % on 15l. airvo put back on pt.
[2020-07-09] MEDS: dexAMETHasone 10 MG/ML Vial 6 MG IV (08:13)
[2020-07-09] MEDS: 0.9% Saline Lock 10 ML Syringe IV (08:14)
[2020-07-09] MEDS: amLODIPine 2.5 MG Tablet PO (08:17)
[2020-07-09] MEDS: Enoxaparin 80 MG/0.8 ML Syringe 70 MG SC ×2 (08:18→20:33)
[2020-07-09] MEDS: Finasteride 5 MG Tablet PO (08:18)
[2020-07-09] MEDS: Pantoprazole Sodium 40 MG Tablet PO (08:18)
[2020-07-09] MEDS: Tamsulosin HCl 0.4 MG Capsule PO (08:18)
[2020-07-09] MEDS: Ferrous Sulfate 325 MG Tablet PO (08:18)
[2020-07-09] MEDS: Levothyroxine 50 MCG Tablet PO (08:18)
[2020-07-09] MEDS: guaiFENesin 1,200 MG Tablet 1200 MG PO ×2 (08:18→20:33)
[2020-07-09] MEDS: Cyanocobalamin 500 MCG Tablet PO (08:19)
[2020-07-09] MEDS: Aspirin E.C. 81 MG Tablet PO (08:19)
[2020-07-09] MEDS: Carvedilol 3.125 MG TABLET PO ×2 (08:20→20:33)
[2020-07-09] MEDS: Lisinopril 20 MG Tablet PO ×2 (08:20→20:33)
[2020-07-09] MEDS: Amiodarone 200 MG Tablet 100 MG PO (08:20)
[2020-07-09] MEDS: oxyCODONE 5 MG Tablet PO (20:33)
[2020-07-09] MEDS: Pravastatin 20 MG Tablet PO (20:33)
[2020-07-09] MEDS: MELATONIN 10 MG TABLET 20 MG PO (20:37)
[2020-07-10] VITALS (13 sets, daily range): BP systolic 113–128; BP diastolic 57–65; PULSE 70–88; RESP 12–24; TEMP 36.4–36.7; O2SAT 89–97
[2020-07-10 05:56] LABS: Hematocrit 40.5 % (40-54); Hemoglobin 12.9 g/dL (13.0-16.5); Mean Corp Hgb Conc 31.9 g/dL (32-36); Mean Corpuscular Hgb 29.1 pg (27.0-32.0); Mean Corpuscular Volume 91.2 fL (80-94); Mean Platelet Vol. 10.5 fl (6.2-12.0); Platelet Count 284 K/mm3 (150-450); RBC Distribution Width CV 13.3 % (11.6-14.6); RBC Distribution Width SD 44.9 fl (35.1-43.9); Red Blood Count 4.44 M/mm3 (4.6-6.2); White Blood Count 11.8 K/mm3 (4.4-11.0)
[2020-07-10 06:27] LABS: ALB/GLOB Ratio 0.6 RATIO (0.9-2.4); AST(SGOT) 33 U/L (15-37); Alanine Aminotransfer ALT/SGPT 111 U/L (16-61); Albumin, Serum 2.2 g/dL (3.2-5.0); Alkaline Phosphatase 93 U/L (45-117); Anion Gap 6 (5-15); BUN 48 mg/dL (7-18); BUN/Creat Ratio 42.5 RATIO (10-20); Calcium,Total 8.2 mg/dL (8.5-10.1); Chloride 113 mmol/L (98-107); Creatinine, Serum 1.13 mg/dL (0.70-1.30); EST Glomerular Filtration Rate 67 mL/min (>60); Est Glom Filt Rate - Afr Amer 82 mL/min (>60); Estimated Creatinine Clearance 51.76 ml/min; Globulin 3.6 g/dL (2.2-4.2); Glucose 122 mg/dL (74-106); Potassium 4.3 mmol/L (3.5-5.1); Protein, Total 5.8 g/dL (6.4-8.2); Sodium Level 144 mmol/L (136-145)
--- NOTE | 2020-07-10 06:27 | PCM.PN.PUL ---
Patient Problems: Active and Suspected Problems (Last Reviewed 08/03/19 @ 13:56 by Chanda Blair) Pneumonia due to COVID-19 virus (Acute) Acute respiratory failure with hypoxia (Acute) Elevated LFTs (Acute) Subjective: The patient was seen and examined at the bedside this morning. Events from the last 24 hours have been reviewed. The patient is currently afebrile, hemodynamically stable and maintaining appropriate oxygen saturations on Airvo heated high flow with an FiO2 requirement of 68% and flow rate of 50 L/min. Liver and renal function are stable. The patient remains on remdesivir, Decadron, therapeutic Lovenox and antimicrobials. Objective: The patient's most recent lab work, culture data and imaging studies have all been personally reviewed. Surface echocardiogram from 2016 revealed mild segmental systolic dysfunction with an ejection fraction of 50%. Coronavirus PCR was positive on July 06. Respiratory viral panel was negative. Blood cultures are pending. Respiratory culture revealed possible Haemophilus species. - Physical Exam Vitals/I&O's: Vital Signs Temp Pulse Resp BP Pulse Ox 97.9 F 71 22 H 127/65 H 94 07/10/20 02:55 07/10/20 04:17 07/10/20 04:17 07/10/20 02:55 07/10/20 04:17 Oxygen Flow Rate (L/min) 50 Oxygen Delivery Method Airvo Weight: 161 lb 9.581 oz Body Mass Index (BMI) 26.0 Intake and Output for Last 24 Hours 07/08/20 07/09/20 07/10/20 23:59 23:59 23:59 Intake Total 1540 / 1540 1000 / 1000 Output Total 1290 / 1290 840 / 840 Balance 250 / 250 160 / 160 General: Alert, Cooperative, No apparent distress HEENT: Atraumatic, PERRLA, Normocephalic Oral: Moist Mucosa, No Gingival or Mucosal Lesions/ Ulcerations Neck: Supple, No Nodes, Trachea Midline Lungs: No rhonchi, No wheeze, No rales, Diminished, Tachypneic Cardiovascular: Regular rate, Regular Rhythm Abdomen: Bowel Sounds Present, Soft, Non Tender Extremities: No clubbing, No cyanosis, No edema Skin: No breakdown Musculoskeletal: No Tenderness to Palpation of Joints or Extremities Lymphatic: No Cervical, Supraclavicular, or Inguinal Adenopathy Neurological: Cranial nerves II-XII grossly intact, Neuro grossly intact Psych/Mental Status: Normal Affect, Appropriate Labs (Last 48 Hours) 07/08/20 07/09/20 07/09/20 05:42 05:30 05:30 WBC 10.4 RBC 4.41 L Hgb 12.6 L Hct 40.4 MCV 91.6 MCH 28.6 MCHC 31.2 L RDW Std Deviation 46.2 H RDW Coeff of Khris 13.5 Plt Count 290 MPV 10.7 Sodium 144 143 Potassium 4.1 4.1 Chloride 114 H 112 H Carbon Dioxide 22.0 25.0 Anion Gap 8 6 BUN 47 H 46 H Creatinine 1.21 1.28 Estim Creat Clear Calc 48.33 45.69 Est GFR (MDRD) Af Amer 75 71 Est GFR (MDRD) Non-Af 62 58 L BUN/Creatinine Ratio 38.8 H 35.9 H Glucose 125 H 121 H Calcium 8.3 L 8.4 L Total Bilirubin 0.50 0.40 AST 71 H 44 H ALT 229 H 148 H Alkaline Phosphatase 105 101 Total Protein 5.8 L 5.9 L Albumin 2.5 L 2.3 L Globulin 3.3 3.6 Albumin/Globulin Ratio 0.8 L 0.6 L 07/10/20 07/10/20 05:40 05:40 WBC 11.8 H RBC 4.44 L Hgb 12.9 L Hct 40.5 MCV 91.2 MCH 29.1 MCHC 31.9 L RDW Std Deviation 44.9 H RDW Coeff of Khris 13.3 Plt Count 284 MPV 10.5 Sodium 144 Potassium 4.3 Chloride 113 H Carbon Dioxide 25.0 Anion Gap 6 BUN 48 H Creatinine 1.13 Estim Creat Clear Calc 51.76 Est GFR (MDRD) Af Amer 82 Est GFR (MDRD) Non-Af 67 BUN/Creatinine Ratio 42.5 H Glucose 122 H Calcium 8.2 L Total Bilirubin 0.40 AST 33 ALT 111 H Alkaline Phosphatase 93 Total Protein 5.8 L Albumin 2.2 L Globulin 3.6 Albumin/Globulin Ratio 0.6 L Microbiology 07/06/20 19:20 Interface Orders Gram Stain - Final 07/06/20 19:20 Interface Orders Respiratory Culture - Final Haemophilus influenzae Clinical Impression(s) from Imaging Studies Chest X-Ray 07/06/20 11:10 IMPRESSION: Bilateral pulmonary infiltrates in the preferential peripheral distribution as described. Pneumonitis secondary to Covid should be ruled out. Electronically Signed: Dereje Diaz MD at 11:22 EST , Service support , Chest CTA 07/06/20 11:19 IMPRESSION: Multiple areas of groundglass appearance in the right upper and right lower lobes as well as in the lingular segment of left upper lobe and left lower lobe. This is suggestive of Covid pneumonitis. Chronic interstitial fibrosis with subpleural blebs. Electronically Signed: Dereje Diaz MD at 12:25 EST , Service support , Current Medications Albuterol Sulfate (Albuterol Sulfate 8 Gm Inhaler (60 Puffs)) 4 - 8 puff INHALATION Q4H PRN PRN PRN Reason: Dyspnea, wheezing Alprazolam (Alprazolam 0.5 Mg Tablet) 0.5 mg PO QHS PRN PRN Reason: SLEEP Last Admin: 07/06/20 20:14 Dose: 0.5 mg Documented by: Amiodarone HCl (Amiodarone 200 Mg Tablet) 100 mg PO DAILY [facility] Last Admin: 07/09/20 08:20 Dose: 100 mg Documented by: Amlodipine Besylate (Amlodipine 2.5 Mg Tablet) 2.5 mg PO DAILY [facility] Last Admin: 07/09/20 08:17 Dose: 2.5 mg Documented by: Aspirin (Aspirin E.C. 81 Mg Tablet) 81 mg PO DAILY [facility] Last Admin: 07/09/20 08:19 Dose: 81 mg Documented by: Carvedilol (Carvedilol 3.125 Mg Tablet) 3.125 mg PO BID [facility] Last Admin: 07/09/20 20:33 Dose: 3.125 mg Documented by: Cyanocobalamin (Cyanocobalamin 500 Mcg Tablet) 500 mcg PO DAILY [facility] Last Admin: 07/09/20 08:19 Dose: 500 mcg Documented by: Dexamethasone Sodium Phosphate (Dexamethasone 10 Mg/Ml Vial) 6 mg IV DAILY [facility] Stop: 07/16/20 10:01 Last Admin: 07/09/20 08:13 Dose: 6 mg Documented by: Enoxaparin Sodium (Enoxaparin 80 Mg/0.8 Ml Syringe) 70 mg SC BID [facility] Last Admin: 07/09/20 20:33 Dose: 70 mg Documented by: Ferrous Sulfate (Ferrous Sulfate 325 Mg Tablet) 325 mg PO DAILY [facility] Last Admin: 07/09/20 08:18 Dose: 325 mg Documented by: Finasteride (Finasteride 5 Mg Tablet) 5 mg PO DAILY [facility] Last Admin: 07/09/20 08:18 Dose: 5 mg Documented by: Guaifenesin (Guaifenesin 1,200 Mg Tablet) 1,200 mg PO BID [facility] Last Admin: 07/09/20 20:33 Dose: 1,200 mg Documented by: Hydralazine HCl (Hydralazine 20 Mg/Ml Vial) 10 mg IV Q4H PRN PRN PRN Reason: SBP > 160 Remdesivir 100 mg/ Sodium (Chloride) 250 mls @ 125 mls/hr IV DAILY [facility] Stop: 07/10/20 11:59 Last Infusion: 07/09/20 12:00 Dose: Infused Documented by: Sodium Chloride () 250 mls @ 15 mls/hr IV .[id number] PRN PRN Reason: Saline Flush Ceftriaxone Sodium 2 gm/ (Sodium Chloride) 50 mls @ 100 mls/hr IV Q24 [facility] Last Infusion: 07/09/20 08:50 Dose: Infused Documented by: Levothyroxine Sodium (Levothyroxine 50 Mcg Tablet) 50 mcg PO DAILY [facility] Last Admin: 07/09/20 08:18 Dose: 50 mcg Documented by: Lisinopril (Lisinopril 20 Mg Tablet) 20 mg PO BID [facility] Last Admin: 07/09/20 20:33 Dose: 20 mg Documented by: Loperamide HCl (Loperamide 2 Mg Capsule) 2 mg PO Q2H PRN PRN PRN Reason: loose stools, diarrhea Last Admin: 07/07/20 17:12 Dose: 2 mg Documented by: Melatonin (Melatonin 10 Mg Tablet) 20 mg PO HS [facility] Last Admin: 07/09/20 20:37 Dose: 20 mg Documented by: Oxycodone HCl (Oxycodone 5 Mg Tablet) 5 mg PO Q4H PRN PRN Reason: Pain Score 1-10 Last Admin: 07/09/20 20:33 Dose: 5 mg Documented by: Pantoprazole Sodium (Pantoprazole Sodium 40 Mg Tablet) 40 mg PO DAILY [facility] Last Admin: 07/09/20 08:18 Dose: 40 mg Documented by: Pravastatin Sodium (Pravastatin 20 Mg Tablet) 20 mg PO QHS [facility] Last Admin: 07/09/20 20:33 Dose: 20 mg Documented by: Sodium Chloride (0.9% Saline Lock 10 Ml Syringe) 10 - 40 ml IV UD PRN PRN Reason: SALINE FLUSH Last Admin: 07/09/20 08:14 Dose: 10 ml Documented by: Tamsulosin HCl (Tamsulosin Hcl 0.4 Mg Capsule) 0.4 mg PO DAILY [facility] Last Admin: 07/09/20 08:18 Dose: 0.4 mg Documented by: Medical Necessity - Tobacco Use Smoking Status: Former smoker Tobacco Use: Non-smoker Assessment/Plan All Active Problems (Last Reviewed 08/03/19 @ 13:56 by Chanda Blair) Pneumonia due to COVID-19 virus (Acute) Acute respiratory failure with hypoxia (Acute) Elevated LFTs (Acute) RECOMMENDATIONS: 1. Continue antimicrobials. 2. Continue to wean FiO2 to maintain oxygen saturations at or above 90%. 3. Continue remdesivir to complete treatment course. Continue to monitor liver and renal function accordingly. 4. Continue Decadron to complete 10-day treatment course. 5. Continue therapeutic dose Lovenox. 6. Encourage incentive spirometer use and mobilize patient as tolerated. IMPRESSIONS: 1. Acute hypoxemic respiratory failure secondary to COVID-19 and Haemophilus pneumonia The patient's oxygen requirement has continued to increase over the course of his hospitalization. He is currently on appropriate therapy with scheduled remdesivir and Decadron. We will continue to monitor liver and renal function accordingly. The patient also appears to have Haemophilus in his sputum, for which antibiotics have been initiated. He will be continued on heated high flow with a goal to maintain oxygen saturations at or above 90%. If he is no longer able to maintain saturations on heated high flow, BiPAP can be utilized. Plan to continue therapeutic dosing of Lovenox as well. 2. History of cardiomyopathy/mitral valve regurgitation/ventricular ectopy status post ICD placement/GERD/hypothyroidism/chronic pain syndrome Complicates care, management, recovery and prognosis. Continue home medications as indicated. This note was generated with [employer] software. It may contain incorrect words, spelling, and punctuation that were not noted in checking the note before signing. Inpatient E&M: 65413 Subs Hosp L3
--- NOTE | 2020-07-10 07:16 | PCM.PN.HOSP ---
Patient Problems: Active and Suspected Problems (Last Reviewed 08/03/19 @ 13:56 by Chanda Blair) Pneumonia due to COVID-19 virus (Acute) Acute respiratory failure with hypoxia (Acute) Elevated LFTs (Acute) Subjective: The patient is a 75 y/o M w/ PMHx: Chronic anemia, HTN, HLD, Hypothyroidism, Valvular Heart Disease, Nonischemic Cardiomyopathy s/p AICD/pacemaker, Former Tobacco use, Anxiety, BPH, CKD stage III, GERD, ? VT/PAF, Chronic pain syndrome who presented to the [facility] ED on 07/06/20 with history of ~ 5 days of initially nausea, poor oral intake, fatigue, malaise, diarrhea, headaches primarily frontal/throbbing with no cough and dyspnea worsening over the last ~ 24 hours with fever per EMS upon their evaluation prompting ED presentation with noted initial evaluation with 81% on RA. Patient admitted to the Covid unit as telemetry status, ED evaluation with D-dimer 8.89 with CTPA as noted given notably elevated d-dimer with multiple areas of groundglass appearance in the right upper and right lower lobe as well as lingular segment of left upper lobe and left lower lobe suggestive of Covid pneumonitis with chronic interstitial fibrotic and subpleural blebs evident, continue to require high flow oxygen overnight but did not require BiPAP or air Vo, as needed albuterol, encourage head of bed and continue I-S aggressive intervention, current sputum culture with Haemophilus influenzae with initiation of Rocephin IV antibiotic therapy initiated on 07/08/2020, negative respiratory panel, PCR Covid resulted positive as expected, urine antigens negative, ferritin 5187, LDH 999, troponin less than 0.015, CRP 175, BNP 15.3, procalcitonin 0.18, will continue to trend dimer, initially placed on chemoprophylaxis Lovenox 30 mg subcu twice daily however discussed with pulmonary critical care and 07/07/2020 despite no obvious evidence of pulmonary emboli transition to full anticoagulation to be cautious especially given ongoing significant oxygen requirements, continue supportive care including q 2 hour turning including prone given no prone bed availability and judicious hydration, closely monitor for worsening status for ARDS and multiorgan failure, pulmonary critical care and infectious disease following, continued on IV Decadron as well as IV remdesivir with close monitoring of patient's CMP. 07/08/2020 IV Lasix administration initiated per critical care/pulmonary medicine. 07/08/2020 worsened status with usage of air Vo and BiPAP with deferral of ICU transition with transition to DNR CCA, no intubation status. Ongoing increased air Vo oxygenation requirements, still declining BiPAP usage. 07/10/2020 Lasix 40 mg IV times 1 repeat dosing. Patient with increased dyspnea and coughing with ongoing increased oxygen requirement using airvo only, worse with any exertion or any time off of air Vo with complaint of pleuritic discomfort, worse with deep inspiratory effort and with coughing fits. Patient notes complete resolution of previous diarrhea and states he now feels somewhat constipated. Patient denies fevers, chills, nausea, emesis, abdominal pain. Objective: Physical Examination: General: awake, alert, oriented x 3 and cooperative, seated upright in the medical surgical Covid bed, currently on air Vo, notes pleuritic discomfort with coughing fits and with deep inspiratory effort. Skin: normal color, turgor, no icterus, cyanosis. HEENT: AT/NC, EOMI, PERRLA, mildly dry MM. Lungs: Diminished, increased effort, some accessory muscle usage, air Vo in place, currently maintaining low 90% saturation on significant oxygenation air Vo requirement, no rales, ronchi or wheezing. Heart: Regular rate with regular rhythm; no gallop, rub audible. Abdomen: soft, NTTP, ND, normalized BS. Extremities: no cyanosis, clubbing, or edema. Neurological: patient awake, alert, oriented as noted; cognitive function intact; pupils equally reactive to light and accomodation; cranial nerves II-XII grossly normal, moving all 4 extremities, no focal deficits, strength severely globally decreased secondary to acute presentation. Psychiatric: affect appears more fatigued, no acute evidence of depressive or anxiety feelings. Vitals/I&O's: Vital Signs Temp Pulse Resp BP Pulse Ox 97.9 F 71 22 H 127/65 H 94 07/10/20 02:55 07/10/20 04:17 07/10/20 04:17 07/10/20 02:55 07/10/20 04:17 Oxygen Flow Rate (L/min) 50 Oxygen Delivery Method Airvo Weight: 161 lb 9.581 oz Body Mass Index (BMI) 26.0 Intake and Output for Last 24 Hours 02/05/1607/09/20 07/10/20 23:59 23:59 23:59 Intake Total 1540 / 1540 1000 / 1000 550 / 550 Output Total 1290 / 1290 840 / 840 150 / 150 Balance 250 / 250 160 / 160 400 / 400 Microbiology Past 72 Hours 07/06/20 19:20 Interface Orders Gram Stain - Final 07/06/20 19:20 Interface Orders Respiratory Culture - Final Haemophilus influenzae 07/07/20 06:30 Urine, Clean Catch Legionella Antigen - Final 07/07/20 06:30 Urine, Clean Catch Streptococcus pneumoniae Antigen (M - Final Laboratory Results 07/10/20 05:40: WBC 11.8 H, RBC 4.44 L, Hgb 12.9 L, Hct 40.5, MCV 91.2, MCH 29.1, MCHC 31.9 L, RDW Std Deviation 44.9 H, RDW Coeff of Khris 13.3, Plt Count 284, MPV 10.5 07/10/20 05:40: Sodium 144, Potassium 4.3, Chloride 113 H, Carbon Dioxide 25.0, Anion Gap 6, BUN 48 H, Creatinine 1.13, Estim Creat Clear Calc 51.76, Est GFR (MDRD) Af Amer 82, Est GFR (MDRD) Non-Af 67, BUN/Creatinine Ratio 42.5 H, Glucose 122 H, Calcium 8.2 L, Total Bilirubin 0.40, AST 33, ALT 111 H, Alkaline Phosphatase 93, Total Protein 5.8 L, Albumin 2.2 L, Globulin 3.6, Albumin/Globulin Ratio 0.6 L Current Medications Albuterol Sulfate (Albuterol Sulfate 8 Gm Inhaler (60 Puffs)) 4 - 8 puff INHALATION Q4H PRN PRN PRN Reason: Dyspnea, wheezing Alprazolam (Alprazolam 0.5 Mg Tablet) 0.5 mg PO QHS PRN PRN Reason: SLEEP Last Admin: 07/06/20 20:14 Dose: 0.5 mg Documented by: Amiodarone HCl (Amiodarone 200 Mg Tablet) 100 mg PO DAILY [facility] Last Admin: 07/09/20 08:20 Dose: 100 mg Documented by: Amlodipine Besylate (Amlodipine 2.5 Mg Tablet) 2.5 mg PO DAILY [facility] Last Admin: 07/09/20 08:17 Dose: 2.5 mg Documented by: Aspirin (Aspirin E.C. 81 Mg Tablet) 81 mg PO DAILY [facility] Last Admin: 07/09/20 08:19 Dose: 81 mg Documented by: Carvedilol (Carvedilol 3.125 Mg Tablet) 3.125 mg PO BID [facility] Last Admin: 07/09/20 20:33 Dose: 3.125 mg Documented by: Cyanocobalamin (Cyanocobalamin 500 Mcg Tablet) 500 mcg PO DAILY [facility] Last Admin: 07/09/20 08:19 Dose: 500 mcg Documented by: Dexamethasone Sodium Phosphate (Dexamethasone 10 Mg/Ml Vial) 6 mg IV DAILY [facility] Stop: 07/16/20 10:01 Last Admin: 07/09/20 08:13 Dose: 6 mg Documented by: Enoxaparin Sodium (Enoxaparin 80 Mg/0.8 Ml Syringe) 70 mg SC BID [facility] Last Admin: 07/09/20 20:33 Dose: 70 mg Documented by: Ferrous Sulfate (Ferrous Sulfate 325 Mg Tablet) 325 mg PO DAILY [facility] Last Admin: 07/09/20 08:18 Dose: 325 mg Documented by: Finasteride (Finasteride 5 Mg Tablet) 5 mg PO DAILY [facility] Last Admin: 07/09/20 08:18 Dose: 5 mg Documented by: Guaifenesin (Guaifenesin 1,200 Mg Tablet) 1,200 mg PO BID [facility] Last Admin: 07/09/20 20:33 Dose: 1,200 mg Documented by: Hydralazine HCl (Hydralazine 20 Mg/Ml Vial) 10 mg IV Q4H PRN PRN PRN Reason: SBP > 160 Remdesivir 100 mg/ Sodium (Chloride) 250 mls @ 125 mls/hr IV DAILY [facility] Stop: 07/10/20 11:59 Last Infusion: 07/09/20 12:00 Dose: Infused Documented by: Sodium Chloride () 250 mls @ 15 mls/hr IV .[id number] PRN PRN Reason: Saline Flush Ceftriaxone Sodium 2 gm/ (Sodium Chloride) 50 mls @ 100 mls/hr IV Q24 [facility] Last Infusion: 07/09/20 08:50 Dose: Infused Documented by: Levothyroxine Sodium (Levothyroxine 50 Mcg Tablet) 50 mcg PO DAILY [facility] Last Admin: 07/09/20 08:18 Dose: 50 mcg Documented by: Lisinopril (Lisinopril 20 Mg Tablet) 20 mg PO BID [facility] Last Admin: 07/09/20 20:33 Dose: 20 mg Documented by: Loperamide HCl (Loperamide 2 Mg Capsule) 2 mg PO Q2H PRN PRN PRN Reason: loose stools, diarrhea Last Admin: 07/07/20 17:12 Dose: 2 mg Documented by: Melatonin (Melatonin 10 Mg Tablet) 20 mg PO HS [facility] Last Admin: 07/09/20 20:37 Dose: 20 mg Documented by: Oxycodone HCl (Oxycodone 5 Mg Tablet) 5 mg PO Q4H PRN PRN Reason: Pain Score 1-10 Last Admin: 07/09/20 20:33 Dose: 5 mg Documented by: Pantoprazole Sodium (Pantoprazole Sodium 40 Mg Tablet) 40 mg PO DAILY [facility] Last Admin: 07/09/20 08:18 Dose: 40 mg Documented by: Pravastatin Sodium (Pravastatin 20 Mg Tablet) 20 mg PO QHS [facility] Last Admin: 07/09/20 20:33 Dose: 20 mg Documented by: Sodium Chloride (0.9% Saline Lock 10 Ml Syringe) 10 - 40 ml IV UD PRN PRN Reason: SALINE FLUSH Last Admin: 07/09/20 08:14 Dose: 10 ml Documented by: Tamsulosin HCl (Tamsulosin Hcl 0.4 Mg Capsule) 0.4 mg PO DAILY [facility] Last Admin: 07/09/20 08:18 Dose: 0.4 mg Documented by: STROKE Vital Signs/Narrative: Vital Signs Pulse Resp Pulse Ox 07/10/20 04:17 71 22 H 94 Medical Necessity - Tobacco Use Smoking Status: Former smoker Tobacco Use: Non-smoker Assessment/Plan All Active Problems (Last Reviewed 08/03/19 @ 13:56 by Chanda Blair) Pneumonia due to COVID-19 virus (Acute) Acute respiratory failure with hypoxia (Acute) Elevated LFTs (Acute) The patient is a 75 y/o M w/ PMHx: Chronic anemia, HTN, HLD, Hypothyroidism, Valvular Heart Disease, Nonischemic Cardiomyopathy s/p AICD/pacemaker, Former Tobacco use, Anxiety, BPH, CKD stage III, GERD, ? VT/PAF, Chronic pain syndrome who presents to the [facility] ED on 07/06/20 with history of ~ 5 days of initially nausea, poor oral intake, fatigue, malaise, diarrhea, headaches primarily frontal/throbbing with no cough and dyspnea worsening over the last ~ 24 hours with fever per EMS upon their evaluation prompting ED presentation with noted initial evaluation with 81% on RA. 1. Acute Hypoxic Respiratory Failure secondary to Acute Bilateral Pneumonia secondary to Acute Viral Syndrome, COVID-19 complicated by underlying chronic interstitial fibrotic change and suspected underlying COPD given prolonged tobacco use history: Patient admitted to the Covid unit as telemetry status, ED evaluation with D-dimer 8.89 with CTPA as noted given notably elevated d-dimer with multiple areas of groundglass appearance in the right upper and right lower lobe as well as lingular segment of left upper lobe and left lower lobe suggestive of Covid pneumonitis with chronic interstitial fibrotic and subpleural blebs evident, continue to require high flow oxygen overnight but did not require BiPAP or air Vo, as needed albuterol, encourage head of bed and continue I-S aggressive intervention, current sputum culture with Haemophilus influenzae with initiation of Rocephin IV antibiotic therapy initiated on 07/08/2020, negative respiratory panel, PCR Covid resulted positive as expected, urine antigens negative, ferritin 5187, LDH 999, troponin less than 0.015, CRP 175, BNP 15.3, procalcitonin 0.18, will continue to trend dimer, initially placed on chemoprophylaxis Lovenox 30 mg subcu twice daily however discussed with pulmonary critical care and 07/07/2020 despite no obvious evidence of pulmonary emboli transition to full anticoagulation to be cautious especially given ongoing significant oxygen requirements, continue supportive care including q 2 hour turning including prone given no prone bed availability and judicious hydration, closely monitor for worsening status for ARDS and multiorgan failure, pulmonary critical care and infectious disease following, continued on IV Decadron as well as IV remdesivir with close monitoring of patient's CMP. 07/08/2020 IV Lasix administration initiated per critical care/pulmonary medicine. 07/08/2020 worsened status with usage of air Vo and BiPAP with deferral of ICU transition with transition to DNR CCA, no intubation status. Ongoing increased air Vo oxygenation requirements, still declining BiPAP usage. 07/10/2020 Lasix 40 mg IV times 1 repeat dosing. 2. Elevated LFTs likely secondary to #1: Admission CMP with bilirubin 0.80, AST/ALT 365/357, alk phos 141--> 07/10/2020 CMP with total bilirubin 0.40, AST/ALT 33/111, alk phos 93, continues to improve, continue to trend especially given IV remdesivir usage. 3. Nonischemic cardiomyopathy: Status post AICD/pacemaker, continue patient aspirin, Coreg, lisinopril, statin therapy, not on any diuretic outpatient but being post dose with IV Lasix as noted #1, will closely monitor given acute presentation as noted. 10/11/2017 echocardiogram with normal LV size, mild concentric LVH, EF 60%, RV normal size, RV systolic function normal, moderately dilated LA, known calcified echodensity in the left atrium. 4. Questionable VT/cardiac arrhythmia/PAF: Patient currently on low-dose daily amiodarone, unclear if prior cardiac arrhythmia, will continue to closely monitor, will maintain also on Coreg, not chronically anticoagulated of note. 5. Hypertension: Continue home regimen including Coreg, lisinopril with hold parameters, PRN hydralazine. 6. Hyperlipidemia: Continue home statin regimen. 7. Chronic anemia, iron deficiency: Admission hemoglobin 16, will continue patient iron supplementation, continue to trend CBC. 8. Chronic Kidney Disease Stage III: Admission BUN/Cr 39/1.59, baseline renal function 1.3-1.7, 07/10/2020 CMP with BUN/Cr 48/1.13, continue to monitor. 9. Hypothyroidism: Continue home synthroid regimen. 10. GERD: Continue patient PPI. 11. BPH: We will continue patient home finasteride and Flomax regimen. 12. DVT prophylaxis: SCDs, Lovenox full anticoagulation. 13. CODE status: DNR-CCA, no intubation status. Refusing BIPAP still with ongoing increased air Vo requirements. Understands risk of possible demise without usage for BIPAP. Inpatient E&M: 89896 [facility] L[facility]
[2020-07-10] MEDS: Tamsulosin HCl 0.4 MG Capsule PO (08:52)
[2020-07-10] MEDS: Enoxaparin 80 MG/0.8 ML Syringe 70 MG SC ×2 (08:54→19:58)
[2020-07-10] MEDS: Lisinopril 20 MG Tablet PO ×2 (08:54→19:57)
[2020-07-10] MEDS: Levothyroxine 50 MCG Tablet PO (08:54)
[2020-07-10] MEDS: guaiFENesin 1,200 MG Tablet 1200 MG PO ×2 (08:54→19:58)
[2020-07-10] MEDS: dexAMETHasone 10 MG/ML Vial 6 MG IV (08:54)
[2020-07-10] MEDS: amLODIPine 2.5 MG Tablet PO (08:54)
[2020-07-10] MEDS: Cyanocobalamin 500 MCG Tablet PO (08:54)
[2020-07-10] MEDS: Pantoprazole Sodium 40 MG Tablet PO (08:54)
[2020-07-10] MEDS: Ferrous Sulfate 325 MG Tablet PO (08:56)
[2020-07-10] MEDS: Aspirin E.C. 81 MG Tablet PO (08:56)
[2020-07-10] MEDS: Finasteride 5 MG Tablet PO (08:56)
[2020-07-10] MEDS: Carvedilol 3.125 MG TABLET PO ×2 (08:56→19:57)
[2020-07-10] MEDS: Amiodarone 200 MG Tablet 100 MG PO (08:56)
[2020-07-10] MEDS: oxyCODONE 5 MG Tablet PO (12:09)
[2020-07-10] MEDS: 0.9% Saline Lock 10 ML Syringe IV (17:37)
[2020-07-10] MEDS: Furosemide 40 MG/4 ML Vial IV (17:37)
[2020-07-10] MEDS: Pravastatin 20 MG Tablet PO (19:57)
[2020-07-10] MEDS: MELATONIN 10 MG TABLET 20 MG PO (19:57)
[2020-07-10] MEDS: ALPRAZolam 0.5 MG Tablet PO (19:59)
[2020-07-11] VITALS (14 sets, daily range): BP systolic 100–124; BP diastolic 59–66; PULSE 70–86; RESP 12–20; TEMP 36.6–36.8; O2SAT 87–97
[2020-07-11 05:25] LABS: Hematocrit 43.3 % (40-54); Mean Corp Hgb Conc 32.3 g/dL (32-36); Mean Corpuscular Hgb 29.7 pg (27.0-32.0); Mean Corpuscular Volume 91.9 fL (80-94); Mean Platelet Vol. 10.9 fl (6.2-12.0); Platelet Count 271 K/mm3 (150-450); RBC Distribution Width CV 13.3 % (11.6-14.6); RBC Distribution Width SD 45.7 fl (35.1-43.9); Red Blood Count 4.71 M/mm3 (4.6-6.2); White Blood Count 12.5 K/mm3 (4.4-11.0)
[2020-07-11 05:54] LABS: ALB/GLOB Ratio 0.8 RATIO (0.9-2.4); AST(SGOT) 24 U/L (15-37); Alanine Aminotransfer ALT/SGPT 91 U/L (16-61); Albumin, Serum 2.5 g/dL (3.2-5.0); Alkaline Phosphatase 98 U/L (45-117); Anion Gap 7 (5-15); BUN 49 mg/dL (7-18); BUN/Creat Ratio 40.2 RATIO (10-20); Calcium,Total 8.4 mg/dL (8.5-10.1); Chloride 110 mmol/L (98-107); Creatinine, Serum 1.22 mg/dL (0.70-1.30); EST Glomerular Filtration Rate 62 mL/min (>60); Est Glom Filt Rate - Afr Amer 75 mL/min (>60); Estimated Creatinine Clearance 47.94 ml/min; Globulin 3.1 g/dL (2.2-4.2); Glucose 122 mg/dL (74-106); Potassium 4.6 mmol/L (3.5-5.1); Protein, Total 5.6 g/dL (6.4-8.2); Sodium Level 143 mmol/L (136-145)
[2020-07-11] MEDS: amLODIPine 2.5 MG Tablet PO (08:08)
[2020-07-11] MEDS: Levothyroxine 50 MCG Tablet PO (08:09)
[2020-07-11] MEDS: Finasteride 5 MG Tablet PO (08:09)
[2020-07-11] MEDS: Tamsulosin HCl 0.4 MG Capsule PO (08:09)
[2020-07-11] MEDS: Pantoprazole Sodium 40 MG Tablet PO (08:09)
[2020-07-11] MEDS: Carvedilol 3.125 MG TABLET PO ×2 (08:09→21:13)
[2020-07-11] MEDS: Cyanocobalamin 500 MCG Tablet PO (08:09)
[2020-07-11] MEDS: Ferrous Sulfate 325 MG Tablet PO (08:09)
[2020-07-11] MEDS: Lisinopril 20 MG Tablet PO ×2 (08:09→21:13)
[2020-07-11] MEDS: Aspirin E.C. 81 MG Tablet PO (08:09)
[2020-07-11] MEDS: dexAMETHasone 10 MG/ML Vial 6 MG IV (08:10)
[2020-07-11] MEDS: Enoxaparin 80 MG/0.8 ML Syringe 70 MG SC (08:10)
[2020-07-11] MEDS: guaiFENesin 1,200 MG Tablet 1200 MG PO ×2 (08:10→21:08)
[2020-07-11] MEDS: 0.9% Saline Lock 10 ML Syringe IV (08:11)
[2020-07-11] MEDS: Amiodarone 200 MG Tablet 100 MG PO (08:17)
--- NOTE | 2020-07-11 10:31 | PN_ITS ---
Patient Problems: Active and Suspected Problems (Last Reviewed 08/03/19 @ 13:56 by Chanda Blair) Pneumonia due to COVID-19 virus (Acute) Acute respiratory failure with hypoxia (Acute) Elevated LFTs (Acute) Subjective: Patient did okay overnight. Patient continues to state I hate that mask referring to his BiPAP overnight. Patient has had a bowel movement today, but denies any diarrhea. Patient is still requiring high flow nasal cannula to maintain saturations. - Physical Exam Vitals/I&O's: Vital Signs Temp Pulse Resp BP Pulse Ox 36.7 C 72 18 108/64 90 07/11/20 08:05 07/11/20 08:05 07/11/20 08:05 07/11/20 08:05 07/11/20 08:05 Oxygen Flow Rate (L/min) 50 Oxygen Delivery Method Airvo Weight: 73.3 kg Body Mass Index (BMI) 26.0 Intake and Output for Last 24 Hours 07/09/20 07/10/20 07/11/20 23:59 23:59 23:59 Intake Total 1000 / 1000 1350 / 1350 410 / 410 Output Total 840 / 840 1050 / 1050 650 / 650 Balance 160 / 160 300 / 300 -240 / -240 General: Alert, Oriented x3, Cooperative, No apparent distress, - - Appears older than stated age. HEENT: Atraumatic, PERRLA, EOMI, Normocephalic, - - Slight scleral injection without icterus Oral: Moist Mucosa, No Gingival or Mucosal Lesions/ Ulcerations Neck: Supple, No JVD, No Nodes, Trachea Midline Lungs: No rhonchi, No wheeze, No rales, Diminished Cardiovascular: Regular rate, Regular Rhythm, Normal S1, Normal S2, No murmurs, No rub noted, No Gallop Abdomen: Bowel Sounds Present, Soft, Non Tender, Non-Distended Extremities: No clubbing, No cyanosis, No edema Skin: No rashes, No breakdown Musculoskeletal: No Tenderness to Palpation of Joints or Extremities Lymphatic: No Cervical, Supraclavicular, or Inguinal Adenopathy Neurological: Cranial nerves II-XII grossly intact, Neuro grossly intact, Motor Exam 5/5 strength throughout Psych/Mental Status: Alert and oriented to time, place, person, mood and affect Microbiology Past 72 Hours 07/06/20 19:20 Interface Orders Gram Stain - Final 07/06/20 19:20 Interface Orders Respiratory Culture - Final Haemophilus influenzae Laboratory Results 07/11/20 05:02: WBC 12.5 H, RBC 4.71, Hgb 14.0, Hct 43.3, MCV 91.9, MCH 29.7, MCHC 32.3, RDW Std Deviation 45.7 H, RDW Coeff of Khris 13.3, Plt Count 271, MPV 10.9 07/11/20 05:02: Sodium 143, Potassium 4.6, Chloride 110 H, Carbon Dioxide 26.0, Anion Gap 7, BUN 49 H, Creatinine 1.22, Estim Creat Clear Calc 47.94, Est GFR (MDRD) Af Amer 75, Est GFR (MDRD) Non-Af 62, BUN/Creatinine Ratio 40.2 H, Glucose 122 H, Calcium 8.4 L, Total Bilirubin 0.50, AST 24, ALT 91 H, Alkaline Phosphatase 98, Total Protein 5.6 L, Albumin 2.5 L, Globulin 3.1, Albumin/Globulin Ratio 0.8 L Current Medications Albuterol Sulfate (Albuterol Sulfate 8 Gm Inhaler (60 Puffs)) 4 - 8 puff INHALATION Q4H PRN PRN PRN Reason: Dyspnea, wheezing Alprazolam (Alprazolam 0.5 Mg Tablet) 0.5 mg PO QHS PRN PRN Reason: SLEEP Last Admin: 07/10/20 19:59 Dose: 0.5 mg Documented by: Amiodarone HCl (Amiodarone 200 Mg Tablet) 100 mg PO DAILY [facility] Last Admin: 07/11/20 08:17 Dose: 100 mg Documented by: Amlodipine Besylate (Amlodipine 2.5 Mg Tablet) 2.5 mg PO DAILY [facility] Last Admin: 07/11/20 08:08 Dose: 2.5 mg Documented by: Aspirin (Aspirin E.C. 81 Mg Tablet) 81 mg PO DAILY [facility] Last Admin: 07/11/20 08:09 Dose: 81 mg Documented by: Carvedilol (Carvedilol 3.125 Mg Tablet) 3.125 mg PO BID [facility] Last Admin: 07/11/20 08:09 Dose: 3.125 mg Documented by: Cyanocobalamin (Cyanocobalamin 500 Mcg Tablet) 500 mcg PO DAILY [facility] Last Admin: 07/11/20 08:09 Dose: 500 mcg Documented by: Dexamethasone Sodium Phosphate (Dexamethasone 10 Mg/Ml Vial) 6 mg IV DAILY [facility] Stop: 07/16/20 10:01 Last Admin: 07/11/20 08:10 Dose: 6 mg Documented by: Enoxaparin Sodium (Enoxaparin 80 Mg/0.8 Ml Syringe) 70 mg SC BID [facility] Last Admin: 07/11/20 08:10 Dose: 70 mg Documented by: Ferrous Sulfate (Ferrous Sulfate 325 Mg Tablet) 325 mg PO DAILY [facility] Last Admin: 07/11/20 08:09 Dose: 325 mg Documented by: Finasteride (Finasteride 5 Mg Tablet) 5 mg PO DAILY [facility] Last Admin: 07/11/20 08:09 Dose: 5 mg Documented by: Guaifenesin (Guaifenesin 1,200 Mg Tablet) 1,200 mg PO BID [facility] Last Admin: 07/11/20 08:10 Dose: 1,200 mg Documented by: Hydralazine HCl (Hydralazine 20 Mg/Ml Vial) 10 mg IV Q4H PRN PRN PRN Reason: SBP > 160 Sodium Chloride () 250 mls @ 15 mls/hr IV .[id number] PRN PRN Reason: Saline Flush Ceftriaxone Sodium 2 gm/ (Sodium Chloride) 50 mls @ 100 mls/hr IV Q24 [facility] Last Infusion: 07/11/20 09:55 Dose: Infused Documented by: Levothyroxine Sodium (Levothyroxine 50 Mcg Tablet) 50 mcg PO DAILY [facility] Last Admin: 07/11/20 08:09 Dose: 50 mcg Documented by: Lisinopril (Lisinopril 20 Mg Tablet) 20 mg PO BID [facility] Last Admin: 07/11/20 08:09 Dose: 20 mg Documented by: Loperamide HCl (Loperamide 2 Mg Capsule) 2 mg PO Q2H PRN PRN PRN Reason: loose stools, diarrhea Last Admin: 07/07/20 17:12 Dose: 2 mg Documented by: Melatonin (Melatonin 10 Mg Tablet) [address] [facility] Last Admin: 07/10/20 19:57 Dose: 20 mg Documented by: Oxycodone HCl (Oxycodone 5 Mg Tablet) 5 mg PO Q4H PRN PRN Reason: Pain Score 1-10 Last Admin: 02/14/21 12:09 Dose: 5 mg Documented by: Pantoprazole Sodium (Pantoprazole Sodium 40 Mg Tablet) 40 mg PO DAILY [facility] Last Admin: 07/11/20 08:09 Dose: 40 mg Documented by: Pravastatin Sodium (Pravastatin 20 Mg Tablet) 20 mg PO QHS [facility] Last Admin: 07/10/20 19:57 Dose: 20 mg Documented by: Sodium Chloride (0.9% Saline Lock 10 Ml Syringe) 10 - 40 ml IV UD PRN PRN Reason: SALINE FLUSH Last Admin: 07/11/20 08:11 Dose: 10 ml Documented by: Tamsulosin HCl (Tamsulosin Hcl 0.4 Mg Capsule) 0.4 mg PO DAILY [facility] Last Admin: 07/11/20 08:09 Dose: 0.4 mg Documented by: Medical Necessity - Tobacco Use Smoking Status: Former smoker Tobacco Use: Non-smoker Assessment/Plan All Active Problems (Last Reviewed 08/03/19 @ 13:56 by Chanda Blair) Pneumonia due to COVID-19 virus (Acute) Acute respiratory failure with hypoxia (Acute) Elevated LFTs (Acute) RECOMMENDATIONS: 1. Continue antimicrobials per infectious disease 2. Continue to wean FiO2 to maintain oxygen saturations at or above 90%. 3. Completed remdesivir. No indication for CMP at this point 4. Continue Decadron to complete 10-day treatment course. 5. Continue therapeutic dose Lovenox. 6. Encourage incentive spirometer use and mobilize patient as tolerated. IMPRESSIONS: 1. Acute hypoxemic respiratory failure secondary to COVID-19 and Haemophilus pneumonia The patient's oxygen requirement has continued to increase over the course of his hospitalization. He is currently on appropriate therapy with scheduled remdesivir and Decadron. We will continue to monitor liver and renal function accordingly. The patient also appears to have Haemophilus in his sputum, for which antibiotics have been initiated. He will be continued on heated high flow with a goal to maintain oxygen saturations at or above 90%. Patient may be able to tolerate high flow nasal cannula overnight with sleep, but it would be marginal at this time given FiO2 requirements. Continue with therapeutic dosing of Lovenox. May challenge with diuretic therapy in the future if not improving. Inputs and outputs have not been accurate to this point in weight appears to not be changing. 2. History of cardiomyopathy/mitral valve regurgitation/ventricular ectopy status post ICD placement/GERD/hypothyroidism/chronic pain syndrome Complicates care, management, recovery and prognosis. Continue home medications as indicated. Inpatient E&M: 60070 Subs Hosp L3
[2020-07-11] MEDS: oxyCODONE 5 MG Tablet PO (12:20)
--- NOTE | 2020-07-11 13:10 | PN_ITS ---
Patient Problems: Active and Suspected Problems (Last Reviewed 08/03/19 @ 13:56 by Chanda Blair) Pneumonia due to COVID-19 virus (Acute) Acute respiratory failure with hypoxia (Acute) Elevated LFTs (Acute) Subjective: Declines BiPAP. Sats high 80s to low 90s on Airvo. Vitals/I&O's: Vital Signs Temp Pulse Resp BP Pulse Ox 36.7 C 76 18 108/64 93 07/11/20 08:05 07/11/20 11:23 07/11/20 08:05 07/11/20 08:05 07/11/20 11:23 Oxygen Flow Rate (L/min) 50 Oxygen Delivery Method Airvo Weight: 73.3 kg Body Mass Index (BMI) 26.0 Intake and Output for Last 24 Hours 07/09/20 07/10/20 07/11/20 23:59 23:59 23:59 Intake Total 1000 / 1000 1350 / 1350 410 / 410 Output Total 840 / 840 1050 / 1050 650 / 650 Balance 160 / 160 300 / 300 -240 / -240 General: Alert, No apparent distress HEENT: Atraumatic, Normocephalic Oral: Moist Mucosa, No Gingival or Mucosal Lesions/ Ulcerations Neck: No Nodes, Thyroid Normal Size and Texture Lungs: Normal air movement, - - coarse breath sounds bilaterally. Cardiovascular: Regular rate, Regular Rhythm, Normal S1, Normal S2, No murmurs Abdomen: Bowel Sounds Present, Soft, Non Tender, Non-Distended, No Hepato- splenomegaly Extremities: No edema, No Calf Tenderness Skin: No rashes, No breakdown Microbiology Past 72 Hours 07/06/20 10:40 Blood Culture (Wb) - Anticubital Left Blood Culture - Final No growth in 5 days. 07/06/20 10:40 Blood Culture (Wb) - Anticubital Right Blood Culture - Final No growth in 5 days. 07/06/20 19:20 Interface Orders Gram Stain - Final 07/06/20 19:20 Interface Orders Respiratory Culture - Final Haemophilus influenzae Laboratory Results 07/11/20 05:02: WBC 12.5 H, RBC 4.71, Hgb 14.0, Hct 43.3, MCV 91.9, MCH 29.7, MCHC 32.3, RDW Std Deviation 45.7 H, RDW Coeff of Khris 13.3, Plt Count 271, MPV 10.9 07/11/20 05:02: Sodium 143, Potassium 4.6, Chloride 110 H, Carbon Dioxide 26.0, Anion Gap 7, BUN 49 H, Creatinine 1.22, Estim Creat Clear Calc 47.94, Est GFR (MDRD) Af Amer 75, Est GFR (MDRD) Non-Af 62, BUN/Creatinine Ratio 40.2 H, Glucose 122 H, Calcium 8.4 L, Total Bilirubin 0.50, AST 24, ALT 91 H, Alkaline Phosphatase 98, Total Protein 5.6 L, Albumin 2.5 L, Globulin 3.1, Albumin/Globulin Ratio 0.8 L Current Medications Albuterol Sulfate (Albuterol Sulfate 8 Gm Inhaler (60 Puffs)) 4 - 8 puff INHALATION Q4H PRN PRN PRN Reason: Dyspnea, wheezing Alprazolam (Alprazolam 0.5 Mg Tablet) 0.5 mg PO QHS PRN PRN Reason: SLEEP Last Admin: 07/10/20 19:59 Dose: 0.5 mg Documented by: Amiodarone HCl (Amiodarone 200 Mg Tablet) 100 mg PO DAILY [facility] Last Admin: 07/11/20 08:17 Dose: 100 mg Documented by: Amlodipine Besylate (Amlodipine 2.5 Mg Tablet) 2.5 mg PO DAILY [facility] Last Admin: 07/11/20 08:08 Dose: 2.5 mg Documented by: Aspirin (Aspirin E.C. 81 Mg Tablet) 81 mg PO DAILY [facility] Last Admin: 07/11/20 08:09 Dose: 81 mg Documented by: Carvedilol (Carvedilol 3.125 Mg Tablet) 3.125 mg PO BID [facility] Last Admin: 07/11/20 08:09 Dose: 3.125 mg Documented by: Cyanocobalamin (Cyanocobalamin 500 Mcg Tablet) 500 mcg PO DAILY [facility] Last Admin: 07/11/20 08:09 Dose: 500 mcg Documented by: Dexamethasone Sodium Phosphate (Dexamethasone 10 Mg/Ml Vial) 6 mg IV DAILY [facility] Stop: 07/16/20 10:01 Last Admin: 07/11/20 08:10 Dose: 6 mg Documented by: Enoxaparin Sodium (Enoxaparin 80 Mg/0.8 Ml Syringe) 70 mg SC BID [facility] Last Admin: 07/11/20 08:10 Dose: 70 mg Documented by: Ferrous Sulfate (Ferrous Sulfate 325 Mg Tablet) 325 mg PO DAILY [facility] Last Admin: 07/11/20 08:09 Dose: 325 mg Documented by: Finasteride (Finasteride 5 Mg Tablet) 5 mg PO DAILY [facility] Last Admin: 07/11/20 08:09 Dose: 5 mg Documented by: Guaifenesin (Guaifenesin 1,200 Mg Tablet) 1,200 mg PO BID [facility] Last Admin: 07/11/20 08:10 Dose: 1,200 mg Documented by: Hydralazine HCl (Hydralazine 20 Mg/Ml Vial) 10 mg IV Q4H PRN PRN PRN Reason: SBP > 160 Sodium Chloride () 250 mls @ 15 mls/hr IV .[id number] PRN PRN Reason: Saline Flush Ceftriaxone Sodium 2 gm/ (Sodium Chloride) 50 mls @ 100 mls/hr IV Q24 [facility] Last Infusion: 07/11/20 09:55 Dose: Infused Documented by: Levothyroxine Sodium (Levothyroxine 50 Mcg Tablet) 50 mcg PO DAILY [facility] Last Admin: 07/11/20 08:09 Dose: 50 mcg Documented by: Lisinopril (Lisinopril 20 Mg Tablet) 20 mg PO BID [facility] Last Admin: 07/11/20 08:09 Dose: 20 mg Documented by: Loperamide HCl (Loperamide 2 Mg Capsule) 2 mg PO Q2H PRN PRN PRN Reason: loose stools, diarrhea Last Admin: 07/07/20 17:12 Dose: 2 mg Documented by: Melatonin (Melatonin 10 Mg Tablet) 20 mg [facility] Last Admin: 07/10/20 19:57 Dose: 20 mg Documented by: Oxycodone HCl (Oxycodone 5 Mg Tablet) 5 mg PO Q4H PRN PRN Reason: Pain Score 1-10 Last Admin: 07/11/20 12:20 Dose: 5 mg Documented by: Pantoprazole Sodium (Pantoprazole Sodium 40 Mg Tablet) 40 mg PO DAILY [facility] Last Admin: 07/11/20 08:09 Dose: 40 mg Documented by: Pravastatin Sodium (Pravastatin 20 Mg Tablet) 20 mg PO QHS [facility] Last Admin: 07/10/20 19:57 Dose: 20 mg Documented by: Sodium Chloride (0.9% Saline Lock 10 Ml Syringe) 10 - 40 ml IV UD PRN PRN Reason: SALINE FLUSH Last Admin: 07/11/20 08:11 Dose: 10 ml Documented by: Tamsulosin HCl (Tamsulosin Hcl 0.4 Mg Capsule) 0.4 mg PO DAILY [facility] Last Admin: 07/11/20 08:09 Dose: 0.4 mg Documented by: STROKE Vital Signs/Narrative: Vital Signs Pulse Pulse Ox 07/11/20 11:23 76 93 Medical Necessity - Tobacco Use Smoking Status: Former smoker Tobacco Use: Non-smoker Assessment/Plan All Active Problems (Last Reviewed 08/03/19 @ 13:56 by Chanda Blair) Pneumonia due to COVID-19 virus (Acute) Acute respiratory failure with hypoxia (Acute) Elevated LFTs (Acute) 1. Acute Hypoxic Respiratory Failure * secondary to Bilateral Pneumonia secondary to Acute Viral Syndrome, COVID-19, and H. flu pneumonia * on Airvo. Not tolerating BiPAP * Had long conversation reencouraging BiPAP to help with ventilation. * He still wants to continue with Airvo * Pulm following * No PE on CTA 2. Acute COVID 19 pneumonia * completed Rem-d * on dexamethasone 3. H flu pneumonia * on CTX * pulm toilet 4. transaminitis * 2/2 COVID 19 * improving 5. Nonischemic cardiomyopathy: * Status post AICD/pacemaker, continue patient aspirin, Coreg, lisinopril, statin therapy, not on any diuretic outpatient but being post dose with IV Lasix as noted #1, will closely monitor given acute presentation as noted. 10/11/2017 echocardiogram with normal LV size, mild concentric LVH, EF 60%, RV normal size, RV systolic function normal, moderately dilated LA, known calcified echodensity in the left atrium. 6. Questionable VT/cardiac arrhythmia/PAF: * Patient currently on low-dose daily amiodarone, unclear if prior cardiac arrhythmia, will continue to closely monitor, will maintain also on Coreg, not chronically anticoagulated of note. 7. Hypertension: Continue home regimen including Coreg, lisinopril with hold parameters, PRN hydralazine. 8. Hyperlipidemia: Continue home statin regimen. 9. Chronic anemia, iron deficiency: Admission hemoglobin 16, will continue patient iron supplementation, continue to trend CBC. 10. Chronic Kidney Disease Stage III: Admission BUN/Cr 39/1.59, baseline renal function 1.3-1.7, 07/10/2020 CMP with BUN/Cr 48/1.13, continue to monitor. 11. Hypothyroidism: Continue home synthroid regimen. 12. GERD: Continue patient PPI. 13. BPH: We will continue patient home finasteride and Flomax regimen. 14. DVT prophylaxis: SCDs, enoxaparin. Refer to NIH guidelines (https://www.fhkyj43lewicozqgghxythqpqd.nih.gov/adjunctive-therapy/antithromboti c-therapy/) and Chest guidelines (CHEST 2020; 158(3): 9328-0863). 13. CODE status: DNR-CCA, no intubation status. Refusing BIPAP still with ongoing increased air Vo requirements. Understands risk of possible demise without usage for BIPAP. Inpatient E&M: 01590 Subs Hosp L2
--- NOTE | 2020-07-11 14:26 | PN.ID_ITS ---
Patient Problems: Active and Suspected Problems (Last Reviewed 08/03/19 @ 13:56 by Chanda Blair) Pneumonia due to COVID-19 virus (Acute) Acute respiratory failure with hypoxia (Acute) Elevated LFTs (Acute) Subjective: Sleeping, no fever - Physical Exam Vitals/I&O's: Vital Signs Temp Pulse Resp BP Pulse Ox 98.0 F 76 18 108/64 93 07/11/20 08:05 07/11/20 11:23 07/11/20 08:05 07/11/20 08:05 07/11/20 11:23 Oxygen Flow Rate (L/min) 55 Oxygen Delivery Method Airvo Weight: 73.3 kg Body Mass Index (BMI) 26.0 Intake and Output for Last 24 Hours 07/09/20 07/10/20 07/11/20 23:59 23:59 23:59 Intake Total 1000 / 1000 1350 / 1350 410 / 410 Output Total 840 / 840 1050 / 1050 650 / 650 Balance 160 / 160 300 / 300 -240 / -240 General: No apparent distress Lungs: Diminished Cardiovascular: Regular rate, Regular Rhythm Abdomen: Soft, Non Tender, Non-Distended Skin: No rashes Microbiology Past 72 Hours 07/06/20 10:40 Blood Culture (Wb) - Anticubital Left Blood Culture - Final No growth in 5 days. 07/06/20 10:40 Blood Culture (Wb) - Anticubital Right Blood Culture - Final No growth in 5 days. 07/06/20 19:20 Interface Orders Gram Stain - Final 07/06/20 19:20 Interface Orders Respiratory Culture - Final Haemophilus influenzae Laboratory Results 07/11/20 05:02: WBC 12.5 H, RBC 4.71, Hgb 14.0, Hct 43.3, MCV 91.9, MCH 29.7, MCHC 32.3, RDW Std Deviation 45.7 H, RDW Coeff of Khris 13.3, Plt Count 271, MPV 10.9 07/11/20 05:02: Sodium 143, Potassium 4.6, Chloride 110 H, Carbon Dioxide 26.0, Anion Gap 7, BUN 49 H, Creatinine 1.22, Estim Creat Clear Calc 47.94, Est GFR (MDRD) Af Amer 75, Est GFR (MDRD) Non-Af 62, BUN/Creatinine Ratio 40.2 H, Glucose 122 H, Calcium 8.4 L, Total Bilirubin 0.50, AST 24, ALT 91 H, Alkaline Phosphatase 98, Total Protein 5.6 L, Albumin 2.5 L, Globulin 3.1, Albumin/Globulin Ratio 0.8 L Current Medications Albuterol Sulfate (Albuterol Sulfate 8 Gm Inhaler (60 Puffs)) 4 - 8 puff INHALATION Q4H PRN PRN PRN Reason: Dyspnea, wheezing Alprazolam (Alprazolam 0.5 Mg Tablet) 0.5 mg PO QHS PRN PRN Reason: SLEEP Last Admin: 07/10/20 19:59 Dose: 0.5 mg Documented by: Amiodarone HCl (Amiodarone 200 Mg Tablet) 100 mg PO DAILY [facility] Last Admin: 07/11/20 08:17 Dose: 100 mg Documented by: Amlodipine Besylate (Amlodipine 2.5 Mg Tablet) 2.5 mg PO DAILY [facility] Last Admin: 07/11/20 08:08 Dose: 2.5 mg Documented by: Aspirin (Aspirin E.C. 81 Mg Tablet) 81 mg PO DAILY [facility] Last Admin: 07/11/20 08:09 Dose: 81 mg Documented by: Carvedilol (Carvedilol 3.125 Mg Tablet) 3.125 mg PO BID [facility] Last Admin: 07/11/20 08:09 Dose: 3.125 mg Documented by: Cyanocobalamin (Cyanocobalamin 500 Mcg Tablet) 500 mcg PO DAILY [facility] Last Admin: 07/11/20 08:09 Dose: 500 mcg Documented by: Dexamethasone Sodium Phosphate (Dexamethasone 10 Mg/Ml Vial) 6 mg IV DAILY [facility] Stop: 07/16/20 10:01 Last Admin: 07/11/20 08:10 Dose: 6 mg Documented by: Enoxaparin Sodium (Enoxaparin 40 Mg/0.4 Ml Syringe) 40 mg SC DAILY [facility] Ferrous Sulfate (Ferrous Sulfate 325 Mg Tablet) 325 mg PO DAILY [facility] Last Admin: 07/11/20 08:09 Dose: 325 mg Documented by: Finasteride (Finasteride 5 Mg Tablet) 5 mg PO DAILY [facility] Last Admin: 07/11/20 08:09 Dose: 5 mg Documented by: Guaifenesin (Guaifenesin 1,200 Mg Tablet) 1,200 mg PO BID [facility] Last Admin: 07/11/20 08:10 Dose: 1,200 mg Documented by: Hydralazine HCl (Hydralazine 20 Mg/Ml Vial) 10 mg IV Q4H PRN PRN PRN Reason: SBP > 160 Sodium Chloride () 250 mls @ 15 mls/hr IV .[id number] PRN PRN Reason: Saline Flush Ceftriaxone Sodium 2 gm/ (Sodium Chloride) 50 mls @ 100 mls/hr IV Q24 [facility] Last Infusion: 07/11/20 09:55 Dose: Infused Documented by: Levothyroxine Sodium (Levothyroxine 50 Mcg Tablet) 50 mcg PO DAILY [facility] Last Admin: 07/11/20 08:09 Dose: 50 mcg Documented by: Lisinopril (Lisinopril 20 Mg Tablet) 20 mg PO BID [facility] Last Admin: 07/11/20 08:09 Dose: 20 mg Documented by: Loperamide HCl (Loperamide 2 Mg Capsule) 2 mg PO Q2H PRN PRN PRN Reason: loose stools, diarrhea Last Admin: 07/07/20 17:12 Dose: 2 mg Documented by: Melatonin (Melatonin 10 Mg Tablet) 20 mg PO [facility] Last Admin: 07/10/20 19:57 Dose: 20 mg Documented by: Oxycodone HCl (Oxycodone 5 Mg Tablet) 5 mg PO Q4H PRN PRN Reason: Pain Score 1-10 Last Admin: 07/11/20 12:20 Dose: 5 mg Documented by: Pantoprazole Sodium (Pantoprazole Sodium 40 Mg Tablet) 40 mg PO DAILY [facility] Last Admin: 07/11/20 08:09 Dose: 40 mg Documented by: Pravastatin Sodium (Pravastatin 20 Mg Tablet) 20 mg PO QHS [facility] Last Admin: 07/10/20 19:57 Dose: 20 mg Documented by: Sodium Chloride (0.9% Saline Lock 10 Ml Syringe) 10 - 40 ml IV UD PRN PRN Reason: SALINE FLUSH Last Admin: 07/11/20 08:11 Dose: 10 ml Documented by: Tamsulosin HCl (Tamsulosin Hcl 0.4 Mg Capsule) 0.4 mg PO DAILY [facility] Last Admin: 07/11/20 08:09 Dose: 0.4 mg Documented by: Medical Necessity - Tobacco Use Smoking Status: Former smoker Tobacco Use: Non-smoker Route of nutrition/ use of supplements: [] Nutritional Intake: [] IV Site: [] Maria Catheter: [] - Assessment/Plan Antibiotics: [] Assessment/Plan: [] Active and Suspected Problems (Last Reviewed 08/03/19 @ 13:56 by Chanda Blair) Pneumonia due to COVID-19 virus (Acute) Acute respiratory failure with hypoxia (Acute) Elevated LFTs (Acute) covid with hypoxia and transaminitis - sx started around 2/5. Completed remdesivir. On 10 days of dex. D-dimer was 8.9, CT neg for PE, on lovenox 30mg bid. O2 slowly improving. On ceftriaxone for h.flu in sputum. Will follow
[2020-07-11] MEDS: Pravastatin 20 MG Tablet PO (21:08)
[2020-07-11] MEDS: MELATONIN 10 MG TABLET 20 MG PO (21:08)
[2020-07-11] MEDS: ALPRAZolam 0.5 MG Tablet PO (21:25)
[2020-07-12] VITALS (19 sets, daily range): BP systolic 102–112; BP diastolic 58–64; PULSE 70–114; RESP 12–29; TEMP 36.6–36.7; O2SAT 77–95
[2020-07-12 06:30] LABS: Absolute Lymphocyte Count 0.81 X10^3/uL (0.83-4.51); Absolute Neutrophil Count 10.2 X10^3/uL (2.0-7.7); Basophil# 0.06 X10^3/uL; Basophil% 0.5 % (0-1); Hemoglobin 13.3 g/dL (13.0-16.5); Lymphocyte # 0.81 X10^3/ul (4.0); Lymphocyte % 6.5 % (19-41); Mean Corp Hgb Conc 33.3 g/dL (32-36); Mean Corpuscular Hgb 29.9 pg (27.0-32.0); Mean Corpuscular Volume 89.9 fL (80-94); Mean Platelet Vol. 11.4 fl (6.2-12.0); Monocyte# 0.84 X10^3/uL; Monocyte% 6.7 % (0-10); NRBC Flagged by Analyzer 0 % (0-5); Neutrophil # 10.18 X10^3/uL (2.7-7.7); Neutrophil % 81.5 % (47-70); Platelet Count 239 K/mm3 (150-450); RBC Distribution Width CV 13.4 % (11.6-14.6); RBC Distribution Width SD 44.4 fl (35.1-43.9); Red Blood Count 4.45 M/mm3 (4.6-6.2); White Blood Count 12.5 K/mm3 (4.4-11.0)
[2020-07-12 06:46] LABS: ALB/GLOB Ratio 0.6 RATIO (0.9-2.4); AST(SGOT) 18 U/L (15-37); Alanine Aminotransfer ALT/SGPT 63 U/L (16-61); Albumin, Serum 2.2 g/dL (3.2-5.0); Alkaline Phosphatase 88 U/L (45-117); Anion Gap 5 (5-15); BUN 55 mg/dL (7-18); BUN/Creat Ratio 49.5 RATIO (10-20); Calcium,Total 8.4 mg/dL (8.5-10.1); Chloride 110 mmol/L (98-107); Creatinine, Serum 1.11 mg/dL (0.70-1.30); EST Glomerular Filtration Rate 69 mL/min (>60); Est Glom Filt Rate - Afr Amer 83 mL/min (>60); Estimated Creatinine Clearance 52.69 ml/min; Globulin 3.6 g/dL (2.2-4.2); Glucose 124 mg/dL (74-106); Potassium 4.7 mmol/L (3.5-5.1); Protein, Total 5.8 g/dL (6.4-8.2); Sodium Level 141 mmol/L (136-145)
--- NOTE | 2020-07-12 07:30 | NURSING ---
pt's spO2 low on AirVo. disc at length Covid, bipap/airvo/nc, the importance of IS/C/DB. pt agrees to wear bipap for a time
[2020-07-12] MEDS: Furosemide 40 MG/4 ML Vial IV (08:57)
[2020-07-12] MEDS: 0.9% Saline Lock 10 ML Syringe IV ×2 (08:57→15:36)
--- NOTE | 2020-07-12 09:59 | PCM.PN.PUL ---
Patient Problems: Active and Suspected Problems (Last Reviewed 08/03/19 @ 13:56 by Chanda Blair) Pneumonia due to COVID-19 virus (Acute) Acute respiratory failure with hypoxia (Acute) Elevated LFTs (Acute) Subjective: Patient with significant difficulty overnight. Patient had refused BiPAP for most of the evening and was requiring 100% FiO2 this morning. Patient has since been placed on BiPAP. Patient has not reported any significant change in pain or cough. Patient is reporting a headache at this time. Patient also reports discomfort at the interface site for his BiPAP. BiPAP pressure settings did have to be increased this morning secondary to hypoxia. - Physical Exam Vitals/I&O's: Vital Signs Temp Pulse Resp BP Pulse Ox 36.6 C 72 24 H 102/58 L 87 07/12/20 07:58 07/12/20 07:58 07/12/20 07:58 07/12/20 07:58 07/12/20 07:58 Oxygen Flow Rate (L/min) 55 Oxygen Delivery Method Bi-pap Weight: 73.3 kg Body Mass Index (BMI) 26.0 Intake and Output for Last 24 Hours 07/10/20 07/11/20 07/12/20 23:59 23:59 23:59 Intake Total 1350 / 1350 530 / 530 100 / 100 Output Total 1050 / 1050 800 / 900 350 / 350 Balance 300 / 300 -270 / -370 -250 / -250 General: Alert, Oriented x3, Cooperative, No apparent distress - While on BiPAP HEENT: Atraumatic, PERRLA, EOMI, Normocephalic, - - No scleral icterus or injection noted Oral: No Gingival or Mucosal Lesions/ Ulcerations, Dry Mucosa Neck: Supple, No Nodes, Trachea Midline, JVD, Right Lungs: No rhonchi, No wheeze, Diminished, Rales - Right base Cardiovascular: Normal S1, Normal S2, Tachycardic Abdomen: Bowel Sounds Present, Soft, Non Tender, Non-Distended Extremities: No clubbing, No cyanosis Skin: No rashes, No breakdown Musculoskeletal: No Tenderness to Palpation of Joints or Extremities Lymphatic: No Cervical, Supraclavicular, or Inguinal Adenopathy Neurological: Cranial nerves II-XII grossly intact, Neuro grossly intact, Motor Exam 5/5 strength throughout Psych/Mental Status: Alert and oriented to time, place, person, mood and affect Microbiology Past 72 Hours 07/06/20 10:40 Blood Culture (Wb) - Anticubital Left Blood Culture - Final No growth in 5 days. 07/06/20 10:40 Blood Culture (Wb) - Anticubital Right Blood Culture - Final No growth in 5 days. Laboratory Results 07/12/20 04:30: WBC 12.5 H, RBC 4.45 L, Hgb 13.3, Hct 40.0, MCV 89.9, MCH 29.9, MCHC 33.3, RDW Std Deviation 44.4 H, RDW Coeff of Khris 13.4, Plt Count 239, MPV 11.4, Immature Gran % (Auto) 4.800 H, Neut % (Auto) 81.5 H, Lymph % (Auto) 6.5 L, [place] % (Auto) 6.7, Eos % (Auto) 0.0, Baso % (Auto) 0.5, Absolute Neuts (auto) 10.2 H, Absolute Lymphs (auto) 0.81 L, Nucleated RBC % 0 07/12/20 04:30: Sodium 141, Potassium 4.7, Chloride 110 H, Carbon Dioxide 26.0, Anion Gap 5, BUN 55 H, Creatinine 1.11, Estim Creat Clear Calc 52.69, Est GFR (MDRD) Af Amer 83, Est GFR (MDRD) Non-Af 69, BUN/Creatinine Ratio 49.5 H, Glucose 124 H, Calcium 8.4 L, Total Bilirubin 0.40, AST 18, ALT 63 H, Alkaline Phosphatase 88, Total Protein 5.8 L, Albumin 2.2 L, Globulin 3.6, Albumin/Globulin Ratio 0.6 L Current Medications Albuterol Sulfate (Albuterol Sulfate 8 Gm Inhaler (60 Puffs)) 4 - 8 puff INHALATION Q4H PRN PRN PRN Reason: Dyspnea, wheezing Alprazolam (Alprazolam 0.5 Mg Tablet) 0.5 mg PO QHS PRN PRN Reason: SLEEP Last Admin: 07/11/20 21:25 Dose: 0.5 mg Documented by: Amiodarone HCl (Amiodarone 200 Mg Tablet) 100 mg PO DAILY [facility] Last Admin: 07/11/20 08:17 Dose: 100 mg Documented by: Amlodipine Besylate (Amlodipine 2.5 Mg Tablet) 2.5 mg PO DAILY [facility] Last Admin: 07/11/20 08:08 Dose: 2.5 mg Documented by: Aspirin (Aspirin E.C. 81 Mg Tablet) 81 mg PO DAILY [facility] Last Admin: 07/11/20 08:09 Dose: 81 mg Documented by: Carvedilol (Carvedilol 3.125 Mg Tablet) 3.125 mg PO BID [facility] Last Admin: 07/11/20 21:13 Dose: 3.125 mg Documented by: Cyanocobalamin (Cyanocobalamin 500 Mcg Tablet) 500 mcg PO DAILY [facility] Last Admin: 07/11/20 08:09 Dose: 500 mcg Documented by: Dexamethasone Sodium Phosphate (Dexamethasone 10 Mg/Ml Vial) 6 mg IV DAILY [facility] Stop: 07/16/20 10:01 Last Admin: 07/11/20 08:10 Dose: 6 mg Documented by: Enoxaparin Sodium (Enoxaparin 40 Mg/0.4 Ml Syringe) 40 mg SC DAILY [facility] Ferrous Sulfate (Ferrous Sulfate 325 Mg Tablet) 325 mg PO DAILY [facility] Last Admin: 07/11/20 08:09 Dose: 325 mg Documented by: Finasteride (Finasteride 5 Mg Tablet) 5 mg PO DAILY [facility] Last Admin: 07/11/20 08:09 Dose: 5 mg Documented by: Guaifenesin (Guaifenesin 1,200 Mg Tablet) 1,200 mg PO BID [facility] Last Admin: 07/11/20 21:08 Dose: 1,200 mg Documented by: Hydralazine HCl (Hydralazine 20 Mg/Ml Vial) 10 mg IV Q4H PRN PRN PRN Reason: SBP > 160 Sodium Chloride () 250 mls @ 15 mls/hr IV .[id number] PRN PRN Reason: Saline Flush Ceftriaxone Sodium 2 gm/ (Sodium Chloride) 50 mls @ 100 mls/hr IV Q24 [facility] Last Infusion: 07/11/20 09:55 Dose: Infused Documented by: Levothyroxine Sodium (Levothyroxine 50 Mcg Tablet) 50 mcg PO DAILY [facility] Last Admin: 07/11/20 08:09 Dose: 50 mcg Documented by: Lisinopril (Lisinopril 20 Mg Tablet) 20 mg PO BID [facility] Last Admin: 07/11/20 21:13 Dose: 20 mg Documented by: Loperamide HCl (Loperamide 2 Mg Capsule) 2 mg PO Q2H PRN PRN PRN Reason: loose stools, diarrhea Last Admin: 07/07/20 17:12 Dose: 2 mg Documented by: Melatonin (Melatonin 10 Mg Tablet) 20 mg PO HS [facility] Last Admin: 07/11/20 21:08 Dose: 20 mg Documented by: Oxycodone HCl (Oxycodone 5 Mg Tablet) 5 mg PO Q4H PRN PRN Reason: Pain Score 1-10 Last Admin: 07/11/20 12:20 Dose: 5 mg Documented by: Pantoprazole Sodium (Pantoprazole Sodium 40 Mg Tablet) 40 mg PO DAILY [facility] Last Admin: 07/11/20 08:09 Dose: 40 mg Documented by: Pravastatin Sodium (Pravastatin 20 Mg Tablet) 20 mg PO QHS [facility] Last Admin: 07/11/20 21:08 Dose: 20 mg Documented by: Sodium Chloride (0.9% Saline Lock 10 Ml Syringe) 10 - 40 ml IV UD PRN PRN Reason: SALINE FLUSH Last Admin: 07/12/20 08:57 Dose: 10 ml Documented by: Tamsulosin HCl (Tamsulosin Hcl 0.4 Mg Capsule) 0.4 mg PO DAILY [facility] Last Admin: 07/11/20 08:09 Dose: 0.4 mg Documented by: Medical Necessity - Tobacco Use Smoking Status: Former smoker Tobacco Use: Non-smoker Assessment/Plan All Active Problems (Last Reviewed 08/03/19 @ 13:56 by Chanda Blair) Pneumonia due to COVID-19 virus (Acute) Acute respiratory failure with hypoxia (Acute) Elevated LFTs (Acute) RECOMMENDATIONS: 1. Continue antimicrobials per infectious disease 2. Continue to wean FiO2 to maintain oxygen saturations at or above 90%. 3. Completed remdesivir. No indication for CMP at this point 4. Continue Decadron to complete 10-day treatment course. 5. Continue therapeutic dose Lovenox. 6. Encourage incentive spirometer use and mobilize patient as tolerated. 7. Continuous BiPAP for recruitment IMPRESSIONS: 1. Acute hypoxemic respiratory failure secondary to COVID-19 and Haemophilus pneumonia The patient's oxygen requirement has continued to increase over the course of his hospitalization. He is currently on appropriate therapy with scheduled remdesivir and Decadron. We will continue to monitor liver and renal function accordingly. The patient also appears to have Haemophilus in his sputum, for which antibiotics have been initiated. Patient did not use BiPAP overnight with sleep. Patient having difficulty with recruitment at this time. Will attempt to use AVAPS with higher EPAP. Patient may require IPPV versus vest. If symptoms persist, may need to consider chest imaging. Patient is currently a DNR/DNI. Cannot exclude a conversation about intubation later today if symptoms continue to deteriorate. May need to evaluate for comfort measures. 2. History of cardiomyopathy/mitral valve regurgitation/ventricular ectopy status post ICD placement/GERD/hypothyroidism/chronic pain syndrome Complicates care, management, recovery and prognosis. Continue home medications as indicated. TIME: 33 minutes critical care time spent addressing patient's acute hypoxic respiratory failure, cardiomyopathy, review of all data and collaboration with care team (8 AM to 10 AM) 9xxxx: [id number] Critical care first hour
--- NOTE | 2020-07-12 10:29 | CPS ---
Changed patient to AVAPS. Patient became very short of breath, and had pain upon inspiration. Switched back to Bipap and increased EPAP to 10.
--- NOTE | 2020-07-12 10:30 | NURSING ---
pt states he is done wearing this mask. This RN discussed at length w/pt Covid, oxygen requirement, pts VS and code status, what happens when oxygen levels drop. He cont to state he doesn't care about the consequences, I don't want to wear that stuff and if I'm dying I want to go home. Dr.s Tran and Yeison made aware
--- NOTE | 2020-07-12 12:16 | CASEMGMT ---
Addendum entered by Ivanna Posey 07/12/20 15:25: SW completed green sheet for ICU staff to follow in the event pt is able to go to the hospice unit after this SW has left for the day. SLOANE Leal Addendum entered by Ivanna Posey 07/12/20 12:49: SW spoke w/pt's two sons, daughter in law and in the hallway prior to them coming in to see pt. SW explained to family that pt has indicated both to the nurse and the doctor that he doesn't want to do this, wants to go home on hospice. Support offered to family. Family explained that they cannot care for pt at home, the only way he could go home is if he was willing to hire help. Pt's states pt would not be willing to do this. Family in favor of pt going to the inpt unit rather than home, they expressed concern about pt not being willing to do this. SW explained pt needs to be safe and have proper care in the home in order to go home. LIANNA emphasized that pt going to the inpt unit will allow family to visit more also, rather than also caring for pt. Family is going to speak w/pt about this. SW explained that they can go speak w/pt now, and once they are ready to give a number to to hospice to call, and they can put hospice on speaker phone in the room to speak w/pt and family altogether. SW will explain to hospice prior to their conversation that family does not feel they can care for pt at home. LIANNA took family back to ICU and RN assisting them in getting PPE on to go in to see pt. SLOANE Leal Original Note: LIANNA spoke w/RN and physician, pt wants to go on hospice. Family is to be here shortly. Physician states to go forward with the hospice referral. SW will speak w/family when they arrive. SW faxed referral, called hospice. LIANNA spoke w/Augie, explained that pt would like hospice, and we are waiting for family to arrive. Once they arrive and SW speaks with them, will call hospice back to arrange a phone meeting time. SW will continue to follow. SLOANE Leal
--- NOTE | 2020-07-12 13:24 | PN_ITS ---
Patient Problems: Active and Suspected Problems (Last Reviewed 08/03/19 @ 13:56 by Chanda Blair) Pneumonia due to COVID-19 virus (Acute) Acute respiratory failure with hypoxia (Acute) Elevated LFTs (Acute) Subjective: Does not want BiPAP. Wants to at home. Vitals/I&O's: Vital Signs Temp Pulse Resp BP Pulse Ox 36.6 C 85 26 H 102/58 L 90 07/12/20 07:58 07/12/20 10:28 07/12/20 10:28 07/12/20 07:58 07/12/20 10:28 Oxygen Flow Rate (L/min) 55 Oxygen Delivery Method Bi-pap Weight: 73.3 kg Body Mass Index (BMI) 26.0 Intake and Output for Last 24 Hours 07/10/20 07/11/20 07/12/20 23:59 23:59 23:59 Intake Total 1350 / 1350 530 / 530 100 / 100 Output Total 1050 / 1050 800 / 900 350 / 350 Balance 300 / 300 -270 / -370 -250 / -250 General: - - awake. conversational dyspnea with Airvo. HEENT: Atraumatic, Normocephalic Psych/Mental Status: Normal Affect, Appropriate Microbiology Past 72 Hours 07/06/20 10:40 Blood Culture (Wb) - Anticubital Left Blood Culture - Final No growth in 5 days. 07/06/20 10:40 Blood Culture (Wb) - Anticubital Right Blood Culture - Final No growth in 5 days. Laboratory Results 07/12/20 04:30: WBC 12.5 H, RBC 4.45 L, Hgb 13.3, Hct 40.0, MCV 89.9, MCH 29.9, MCHC 33.3, RDW Std Deviation 44.4 H, RDW Coeff of Khris 13.4, Plt Count 239, MPV 11.4, Immature Gran % (Auto) 4.800 H, Neut % (Auto) 81.5 H, Lymph % (Auto) 6.5 L , [place] % (Auto) 6.7, Eos % (Auto) 0.0, Baso % (Auto) 0.5, Absolute Neuts (auto) 10.2 H, Absolute Lymphs (auto) 0.81 L, Nucleated RBC % 0 07/12/20 04:30: Sodium 141, Potassium 4.7, Chloride 110 H, Carbon Dioxide 26.0, Anion Gap 5, BUN 55 H, Creatinine 1.11, Estim Creat Clear Calc 52.69, Est GFR (MDRD) Af Amer 83, Est GFR (MDRD) Non-Af 69, BUN/Creatinine Ratio 49.5 H, Glucose 124 H, Calcium 8.4 L, Total Bilirubin 0.40, AST 18, ALT 63 H, Alkaline Phosphatase 88, Total Protein 5.8 L, Albumin 2.2 L, Globulin 3.6, Albumin/Globulin Ratio 0.6 L Current Medications Albuterol Sulfate (Albuterol Sulfate 8 Gm Inhaler (60 Puffs)) 4 - 8 puff INHALATION Q4H PRN PRN PRN Reason: Dyspnea, wheezing Alprazolam (Alprazolam 0.5 Mg Tablet) 0.5 mg PO QHS PRN PRN Reason: SLEEP Last Admin: 07/11/20 21:25 Dose: 0.5 mg Documented by: Amiodarone HCl (Amiodarone 200 Mg Tablet) 100 mg PO DAILY [facility] Last Admin: 07/11/20 08:17 Dose: 100 mg Documented by: Amlodipine Besylate (Amlodipine 2.5 Mg Tablet) 2.5 mg PO DAILY [facility] Last Admin: 07/11/20 08:08 Dose: 2.5 mg Documented by: Aspirin (Aspirin E.C. 81 Mg Tablet) 81 mg PO DAILY [facility] Last Admin: 07/11/20 08:09 Dose: 81 mg Documented by: Carvedilol (Carvedilol 3.125 Mg Tablet) 3.125 mg PO BID [facility] Last Admin: 07/11/20 21:13 Dose: 3.125 mg Documented by: Cyanocobalamin (Cyanocobalamin 500 Mcg Tablet) 500 mcg PO DAILY [facility] Last Admin: 07/11/20 08:09 Dose: 500 mcg Documented by: Dexamethasone Sodium Phosphate (Dexamethasone 10 Mg/Ml Vial) 6 mg IV DAILY [facility] Stop: 07/16/20 10:01 Last Admin: 07/11/20 08:10 Dose: 6 mg Documented by: Enoxaparin Sodium (Enoxaparin 40 Mg/0.4 Ml Syringe) 40 mg SC DAILY [facility] Ferrous Sulfate (Ferrous Sulfate 325 Mg Tablet) 325 mg PO DAILY [facility] Last Admin: 07/11/20 08:09 Dose: 325 mg Documented by: Finasteride (Finasteride 5 Mg Tablet) 5 mg PO DAILY [facility] Last Admin: 07/11/20 08:09 Dose: 5 mg Documented by: Guaifenesin (Guaifenesin 1,200 Mg Tablet) 1,200 mg PO BID [facility] Last Admin: 07/11/20 21:08 Dose: 1,200 mg Documented by: Hydralazine HCl (Hydralazine 20 Mg/Ml Vial) 10 mg IV Q4H PRN PRN PRN Reason: SBP > 160 Sodium Chloride () 250 mls @ 15 mls/hr IV .[id number] PRN PRN Reason: Saline Flush Ceftriaxone Sodium 2 gm/ (Sodium Chloride) 50 mls @ 100 mls/hr IV Q24 [facility] Last Infusion: 07/11/20 09:55 Dose: Infused Documented by: Levothyroxine Sodium (Levothyroxine 50 Mcg Tablet) 50 mcg PO DAILY [facility] Last Admin: 07/11/20 08:09 Dose: 50 mcg Documented by: Lisinopril (Lisinopril 20 Mg Tablet) 20 mg PO BID [facility] Last Admin: 07/11/20 21:13 Dose: 20 mg Documented by: Loperamide HCl (Loperamide 2 Mg Capsule) 2 mg PO Q2H PRN PRN PRN Reason: loose stools, diarrhea Last Admin: 07/07/20 17:12 Dose: 2 mg Documented by: Melatonin (Melatonin 10 Mg Tablet) 20 mg PO HS [facility] Last Admin: 07/11/20 21:08 Dose: 20 mg Documented by: Oxycodone HCl (Oxycodone 5 Mg Tablet) 5 mg PO Q4H PRN PRN Reason: Pain Score 1-10 Last Admin: 07/11/20 12:20 Dose: 5 mg Documented by: Pantoprazole Sodium (Pantoprazole Sodium 40 Mg Tablet) 40 mg PO DAILY [facility] Last Admin: 07/11/20 08:09 Dose: 40 mg Documented by: Pravastatin Sodium (Pravastatin 20 Mg Tablet) 20 mg PO QHS [facility] Last Admin: 07/11/20 21:08 Dose: 20 mg Documented by: Sodium Chloride (0.9% Saline Lock 10 Ml Syringe) 10 - 40 ml IV UD PRN PRN Reason: SALINE FLUSH Last Admin: 07/12/20 08:57 Dose: 10 ml Documented by: Tamsulosin HCl (Tamsulosin Hcl 0.4 Mg Capsule) 0.4 mg PO DAILY [facility] Last Admin: 07/11/20 08:09 Dose: 0.4 mg Documented by: STROKE Vital Signs/Narrative: Vital Signs Pulse Resp Pulse Ox 07/12/20 10:28 85 26 H 90 07/12/20 10:11 84 28 H 88 Medical Necessity - Tobacco Use Smoking Status: Former smoker Tobacco Use: Non-smoker Assessment/Plan All Active Problems (Last Reviewed 08/03/19 @ 13:56 by Chanda Blair) Pneumonia due to COVID-19 virus (Acute) Acute respiratory failure with hypoxia (Acute) Elevated LFTs (Acute) 1. Acute Hypoxic Respiratory Failure * secondary to Bilateral Pneumonia secondary to Acute Viral Syndrome, COVID-19, and H. flu pneumonia * on Airvo. Not tolerating BiPAP * Had long conversation reencouraging BiPAP to help with ventilation. * He still wants to continue with Airvo * Pulm following * No PE on CTA 2. Acute COVID 19 pneumonia * completed Rem-d * on dexamethasone 3. H flu pneumonia * on CTX * pulm toilet 4. transaminitis * 2/2 COVID 19 * improving 5. Nonischemic cardiomyopathy: * Status post AICD/pacemaker, continue patient aspirin, Coreg, lisinopril, statin therapy, not on any diuretic outpatient but being post dose with IV Lasix as noted #1, will closely monitor given acute presentation as noted. 10/11/2017 echocardiogram with normal LV size, mild concentric LVH, EF 60%, RV normal size, RV systolic function normal, moderately dilated LA, known calcified echodensity in the left atrium. 6. Questionable VT/cardiac arrhythmia/PAF: * Patient currently on low-dose daily amiodarone, unclear if prior cardiac arrhythmia, will continue to closely monitor, will maintain also on Coreg, not chronically anticoagulated of note. 7. Hypertension: Continue home regimen including Coreg, lisinopril with hold parameters, PRN hydralazine. 8. Hyperlipidemia: Continue home statin regimen. 9. Chronic anemia, iron deficiency: Admission hemoglobin 16, will continue patient iron supplementation, continue to trend CBC. 10. Chronic Kidney Disease Stage III: Admission BUN/Cr 39/1.59, baseline renal function 1.3-1.7, 07/10/2020 CMP with BUN/Cr 48/1.13, continue to monitor. 11. Hypothyroidism: Continue home synthroid regimen. 12. GERD: Continue patient PPI. 13. BPH: We will continue patient home finasteride and Flomax regimen. 14. DVT prophylaxis: SCDs, enoxaparin. Refer to NIH guidelines (https://www.ctzxo29fpqogjewuhjlqkrcuzt.nih.gov/adjunctive-therapy/antithromboti c-therapy/) and Chest guidelines (CHEST 2020; 158(3): 0470-6973). 15. CODE status: DNR-CCA, no intubation status. Refusing BIPAP still with ongoing increased air Vo requirements. Understands risk of possible demise without usage for BIPAP. 16. Disposition: pt interested in hospice, particularly hospice at home. Consult placed to hospice to further explain services and where best to treat patient (home v [facility]) Greater than 25 minutes, of which greater than 50% of time was discussing with patient about hospice, respiratory failure, BiPAP. Inpatient E&M: 74995 Subs Hosp L2
--- NOTE | 2020-07-12 13:31 | CASEMGMT ---
Addendum entered by Ivanna Posey 07/12/20 15:14: Family spoke with hospice and have now left. SW called back [facility], plan is for pt to come to the [facility]. SW set up transport, with Physicians for 4:30. SW called hospice back to let them know time. Plan now is to switch pt to 10L O2 and then as long as he is stable, transfer him to the inpt hospice unit. SW called Physicians back and put the ambulance on Will Call. SLOANE Leal Original Note: Family spoke w/pt, he is in agreement with the inpt unit for hospice now, and they are ready to talk w/hospice. SW called [facility], spoke w/Augie, gave her the daughter in law's number to call in the room. She gave SW the number for the doctor for our physician to call. Physician here texted to call the hospice doctor. Augie to call this SW back in regard to next steps. SLOANE Leal
--- NOTE | 2020-07-12 15:02 | DCINST_ITS ---
- Discharge Diagnoses Current Active Problems: Current Active and Chronic Problems (Last Reviewed 08/03/19 @ 13:56 by Chanda Blair) Pneumonia due to COVID-19 virus (Acute) Acute respiratory failure with hypoxia (Acute) Elevated LFTs (Acute) Non-rheumatic tricuspid valve insufficiency (Chronic) Pure hypercholesterolemia (Chronic) Essential hypertension (Chronic) Hypothyroidism, iatrogenic (Chronic) Nicotine abuse (Chronic) Non-ischemic cardiomyopathy (Chronic) CKD (chronic kidney disease), stage III (Chronic) You will use the following diet at home:: No restrictions Your food should be the consistency of: Regular Your liquids should be the consistency of: Regular/Thin Allergies/Adverse Reactions: Allergies Antihistamines - Alkylamine Adverse Reaction (Severe, Verified 07/06/20 10:34) Anxiety Medications to take at Discharge pantoprazole 40 mg tablet,delayed release 40 mg PO QDAY 09/03/17 melatonin 5 mg tablet 20 mg PO HS tab 08/03/19 amiodarone 200 mg tablet 100 mg PO QDAY #45 tab 03/24/20 Polyethylene Glycol 3350 [Miralax] 17 gm PO QHS 07/07/20 Guaifenesin [Mucinex] 1,200 mg PO BID tab 07/12/20 Loperamide [Imodium] 2 mg PO Q2H PRN PRN cap 07/12/20 Lorazepam Intensol [Ativan Intensol] 1 mg SL Q4H PRN PRN bottle 07/12/20 morphine solution (IR) [Roxanol (IR oral solution)] 10 mg SL/PO Q1H PRN PRN 1 Days #1 po.syringe 07/12/20 Primary Care Physician: Neeraj Dietrich MD [Primary Care Provider] - Test Results: Test results from this visit will be discussed in further detail at your follow- up appointment, if applicable. Proposed Discharge Date: 07/12/20
--- NOTE | 2020-07-12 15:03 | DS.PCM_ITS ---
Discharge Date and Diagnosis - Problem List Patient Problems: Active and Suspected Problems (Last Reviewed 08/03/19 @ 13:56 by Chanda Blair) Pneumonia due to COVID-19 virus (Acute) Acute respiratory failure with hypoxia (Acute) Elevated LFTs (Acute) Date of Admission: 07/06/20 Date of Discharge: 07/12/20 - Primary Discharge Diagnosis Acute Problems: Active Problems (Last Reviewed 08/03/19 @ 13:56 by Chanda Blair) 1. Acute Hypoxic Respiratory Failure * secondary to Bilateral Pneumonia secondary to Acute Viral Syndrome, COVID-19, and H. flu pneumonia * on Airvo. Not tolerating BiPAP * Had long conversation reencouraging BiPAP to help with ventilation. * He still wants to continue with Airvo * Pulm following * No PE on CTA 2. Acute COVID 19 pneumonia * completed Rem-d * on dexamethasone 3. H flu pneumonia * on CTX * pulm toilet 4. transaminitis * / COVID 19 * improving - Secondary Discharge Diagnosis Chronic Problems: Chronic Problems (Last Reviewed 08/03/19 @ 13:56 by Chanda Blair) Non-rheumatic tricuspid valve insufficiency (Chronic) Pure hypercholesterolemia (Chronic) Essential hypertension (Chronic) Intermittent claudication (Chronic) Hypothyroidism, iatrogenic (Chronic) Nonrheumatic mitral valve regurgitation (Chronic) Abnormal echocardiogram (Chronic) Nicotine abuse (Chronic) Cardiomyopathy in other diseases classified elsewhere (Chronic) Left bundle branch block (Chronic) Other alf (current) drug therapy (Chronic) Antihyperlipidemic Bilateral carotid bruits (Chronic) Non-ischemic cardiomyopathy (Chronic) Presence of biventricular implantable cardioverter-defibrillator (ICD) (Chronic) 07/16/03, Implantation of cardiac Re-Syncronization Defib system; ICD replacement 07/05; CKD (chronic kidney disease), stage III (Chronic) Acute renal failure syndrome (Chronic) Hospital Course and Treatment Imaging Results: Clinical Impression(s) from Imaging Studies Chest X-Ray 07/06/20 11:10 IMPRESSION: Bilateral pulmonary infiltrates in the preferential peripheral distribution as described. Pneumonitis secondary to Covid should be ruled out. Electronically Signed: Dereje Diaz MD at 11:22 EST , Service support , Chest CTA 07/06/20 11:19 IMPRESSION: Multiple areas of groundglass appearance in the right upper and right lower lobes as well as in the lingular segment of left upper lobe and left lower lobe. This is suggestive of Covid pneumonitis. Chronic interstitial fibrosis with subpleural blebs. Electronically Signed: Dereje Diaz MD at 12:25 EST , Service support , CHEO Lloyd, [facility] Operations: None Procedures: None Summary of Care Provided: The patient is a 75 year old M presents with dyspnea. Patient had COVID-19 as well as Haemophilus influenza pneumonia. Patient had worsening respiratory status requiring BiPAP but eventually the patient declined the BiPAP and was on air Vo. Patient was interested in going home and interested in hospice. Hospice was contacted and patient was transitioned over to nasal cannula and patient was put on 10 L today. His sats were in the mid 80s but when he got to the bathroom he dropped into the 70s and took time to recover. Patient while in the 70s was awake and alert but feeling short of breath but not in any respiratory distress. Hospice physician was notified of this. He did request us to find out what defibrillator device he has. Patient did not know what that was so I reviewed and saw the patient has a Guidant device. The hospice physician was notified of this and will deactivate it upon arrival at hospice. I did tell the patient that that would need to be deactivated and he expressed understanding. Prognosis is poor life expectancy is likely days. [] Patient Problems: Active and Suspected Problems (Last Reviewed 08/03/19 @ 13:56 by Chanda Blair) Pneumonia due to COVID-19 virus (Acute) Acute respiratory failure with hypoxia (Acute) Elevated LFTs (Acute) - Physical Exam Vitals/I&O's: Vital Signs Temp Pulse Resp BP Pulse Ox 36.6 C 85 26 H 102/58 L 90 07/12/20 07:58 07/12/20 10:28 07/12/20 10:28 07/12/20 07:58 07/12/20 10:28 Oxygen Flow Rate (L/min) 55 Oxygen Delivery Method Bi-pap Weight: 73.3 kg Body Mass Index (BMI) 26.0 Intake and Output for Last 24 Hours 07/10/20 07/11/20 07/12/20 23:59 23:59 23:59 Intake Total 1350 / 1350 530 / 530 100 / 100 Output Total 1050 / 1050 800 / 900 350 / 350 Balance 300 / 300 -270 / -370 -250 / -250 Microbiology Past 72 Hours 07/06/20 10:40 Blood Culture (Wb) - Anticubital Left Blood Culture - Final No growth in 5 days. 07/06/20 10:40 Blood Culture (Wb) - Anticubital Right Blood Culture - Final No growth in 5 days. Laboratory Results 07/12/20 04:30: WBC 12.5 H, RBC 4.45 L, Hgb 13.3, Hct 40.0, MCV 89.9, MCH 29.9, MCHC 33.3, RDW Std Deviation 44.4 H, RDW Coeff of Khris 13.4, Plt Count 239, MPV 11.4, Immature Gran % (Auto) 4.800 H, Neut % (Auto) 81.5 H, Lymph % (Auto) 6.5 L , Butts % (Auto) 6.7, Eos % (Auto) 0.0, Baso % (Auto) 0.5, Absolute Neuts (auto) 10.2 H, Absolute Lymphs (auto) 0.81 L, Nucleated RBC % 0 07/12/20 04:30: Sodium 141, Potassium 4.7, Chloride 110 H, Carbon Dioxide 26.0, Anion Gap 5, BUN 55 H, Creatinine 1.11, Estim Creat Clear Calc 52.69, Est GFR (MDRD) Af Amer 83, Est GFR (MDRD) Non-Af 69, BUN/Creatinine Ratio 49.5 H, Glucose 124 H, Calcium 8.4 L, Total Bilirubin 0.40, AST 18, ALT 63 H, Alkaline Phosphatase 88, Total Protein 5.8 L, Albumin 2.2 L, Globulin 3.6, Albumin/Globulin Ratio 0.6 L Current Medications Albuterol Sulfate (Albuterol Sulfate 8 Gm Inhaler (60 Puffs)) 4 - 8 puff INHALATION Q4H PRN PRN PRN Reason: Dyspnea, wheezing Alprazolam (Alprazolam 0.5 Mg Tablet) 0.5 mg PO QHS PRN PRN Reason: SLEEP Last Admin: 07/11/20 21:25 Dose: 0.5 mg Documented by: Amiodarone HCl (Amiodarone 200 Mg Tablet) 100 mg PO DAILY [facility] Last Admin: 07/11/20 08:17 Dose: 100 mg Documented by: Amlodipine Besylate (Amlodipine 2.5 Mg Tablet) 2.5 mg PO DAILY [facility] Last Admin: 07/11/20 08:08 Dose: 2.5 mg Documented by: Aspirin (Aspirin E.C. 81 Mg Tablet) 81 mg PO DAILY [facility] Last Admin: 07/11/20 08:09 Dose: 81 mg Documented by: Carvedilol (Carvedilol 3.125 Mg Tablet) 3.125 mg PO BID [facility] Last Admin: 07/11/20 21:13 Dose: 3.125 mg Documented by: Cyanocobalamin (Cyanocobalamin 500 Mcg Tablet) 500 mcg PO DAILY [facility] Last Admin: 07/11/20 08:09 Dose: 500 mcg Documented by: Dexamethasone Sodium Phosphate (Dexamethasone 10 Mg/Ml Vial) 6 mg IV DAILY [facility] Stop: 07/16/20 10:01 Last Admin: 07/11/20 08:10 Dose: 6 mg Documented by: Enoxaparin Sodium (Enoxaparin 40 Mg/0.4 Ml Syringe) 40 mg SC DAILY [facility] Ferrous Sulfate (Ferrous Sulfate 325 Mg Tablet) 325 mg PO DAILY [facility] Last Admin: 07/11/20 08:09 Dose: 325 mg Documented by: Finasteride (Finasteride 5 Mg Tablet) 5 mg PO DAILY [facility] Last Admin: 07/11/20 08:09 Dose: 5 mg Documented by: Guaifenesin (Guaifenesin 1,200 Mg Tablet) 1,200 mg PO BID [facility] Last Admin: 07/11/20 21:08 Dose: 1,200 mg Documented by: Hydralazine HCl (Hydralazine 20 Mg/Ml Vial) 10 mg IV Q4H PRN PRN PRN Reason: SBP > 160 Sodium Chloride () 250 mls @ 15 mls/hr IV .[id number] PRN PRN Reason: Saline Flush Ceftriaxone Sodium 2 gm/ (Sodium Chloride) 50 mls @ 100 mls/hr IV Q24 [facility] Last Infusion: 07/11/20 09:55 Dose: Infused Documented by: Levothyroxine Sodium (Levothyroxine 50 Mcg Tablet) 50 mcg PO DAILY [facility] Last Admin: 07/11/20 08:09 Dose: 50 mcg Documented by: Lisinopril (Lisinopril 20 Mg Tablet) 20 mg PO BID [facility] Last Admin: 07/11/20 21:13 Dose: 20 mg Documented by: Loperamide HCl (Loperamide 2 Mg Capsule) 2 mg PO Q2H PRN PRN PRN Reason: loose stools, diarrhea Last Admin: 07/07/20 17:12 Dose: 2 mg Documented by: Lorazepam (Lorazepam 2 Mg/Ml Bottle) 1 mg SL Q4H PRN PRN PRN Reason: ANXIETY/AGITATION Melatonin (Melatonin 10 Mg Tablet) 20 mg PO [facility] Last Admin: 07/11/20 21:08 Dose: 20 mg Documented by: Morphine Sulfate (Morphine (Oral Solution) 10mg/0.5ml Syringe) 10 mg SL/PO Q1H PRN PRN PRN Reason: Pain Score 6-10 Oxycodone HCl (Oxycodone 5 Mg Tablet) 5 mg PO Q4H PRN PRN Reason: Pain Score 1-5 Last Admin: 07/11/20 12:20 Dose: 5 mg Documented by: Pantoprazole Sodium (Pantoprazole Sodium 40 Mg Tablet) 40 mg PO DAILY [facility] Last Admin: 07/11/20 08:09 Dose: 40 mg Documented by: Pravastatin Sodium (Pravastatin 20 Mg Tablet) 20 mg PO QHS [facility] Last Admin: 07/11/20 21:08 Dose: 20 mg Documented by: Sodium Chloride (0.9% Saline Lock 10 Ml Syringe) 10 - 40 ml IV UD PRN PRN Reason: SALINE FLUSH Last Admin: 07/12/20 08:57 Dose: 10 ml Documented by: Tamsulosin HCl (Tamsulosin Hcl 0.4 Mg Capsule) 0.4 mg PO DAILY [facility] Last Admin: 07/11/20 08:09 Dose: 0.4 mg Documented by: Discharge Diet: No Restrictions Home Medications: Medications to take at Discharge pantoprazole 40 mg tablet,delayed release 40 mg PO QDAY 09/03/17 melatonin 5 mg tablet 20 mg PO HS tab 08/03/19 amiodarone 200 mg tablet 100 mg PO QDAY #45 tab 03/24/20 Polyethylene Glycol 3350 [Miralax] 17 gm PO QHS 07/07/20 Guaifenesin [Mucinex] 1,200 mg PO BID tab 07/12/20 Loperamide [Imodium] 2 mg PO Q2H PRN PRN cap 07/12/20 Lorazepam Intensol [Ativan Intensol] 1 mg SL Q4H PRN PRN bottle 07/12/20 morphine solution (IR) [Roxanol (IR oral solution)] 10 mg SL/PO Q1H PRN PRN 1 Days #1 po.syringe 07/12/20 Primary Care Physician: Neeraj Dietrich MD [Primary Care Provider] - Disposition: Hospice Medical Facility Minutes spent on discharge:: 50 Patient Condition:: Poor Medical Necessity - Tobacco Use Smoking Status: Former smoker Tobacco Use: Non-smoker Meaningful Use Info Meaningful Use Diagnoses (Choose all that apply): None applicable Inpatient E&M: 55264 Disch Hosp
--- NOTE | 2020-07-12 15:29 | CPS ---
Patient waiting to go to Hospice.
[2020-07-12] MEDS: Aspirin E.C. 81 MG Tablet PO (15:32)
== END 2020-07-12 22:00 | disposition hospice, inpatient (51) | DRG 177 ==
LOC: ED 11:07 → MS2 12:51 → ICU 07-11 18:03
PROVIDERS: Internal Medicine Infectious Disease; Admitting Provider Family Medicine; Emergency Provider Student in an Organized Health Care Education/Training Program; PCP Family Medicine
DX: U07.1 COVID-19 (principal); J12.82 Pneumonia due to coronavirus disease 2019; J96.01 Acute respiratory failure with hypoxia; J14 Pneumonia due to Hemophilus influenzae; I42.8 Other cardiomyopathies; N18.30 Chronic kidney disease, stage 3 unspecified; I12.9 Hypertensive chronic kidney disease with stage 1 through stage 4 chronic kidney disease, or unspecified chronic kidney disease; E03.9 Hypothyroidism, unspecified; E78.5 Hyperlipidemia, unspecified; N40.0 Benign prostatic hyperplasia without lower urinary tract symptoms; F41.9 Anxiety disorder, unspecified; K21.9 Gastro-esophageal reflux disease without esophagitis; G89.4 Chronic pain syndrome; I48.0 Paroxysmal atrial fibrillation; R04.0 Epistaxis; Z95.810 Presence of automatic (implantable) cardiac defibrillator; Z87.891 Personal history of nicotine dependence; D50.9 Iron deficiency anemia, unspecified; Z66 Do not resuscitate
CPT/HCPCS: 36415; 71045; 71275; 80053; 82728; 83605; 83615; 83735; 83880; 84145; 84484; 85025; 85027; 85379; 86140; 87040; 87070; 87077; 87205; 87426; 87449; 87633; 87635; 93005; 94003; 94660; 99285; J7050; A4216; J0696; J1940; U0002